=== PATIENT | male | born 1955 | race American Indian/Alaskan Native ===

== ENCOUNTER 2017-10-18 01:19 | Emergency (ER) | payer OTHER ==
[2017-10-18] MEDS ORDERED: TYLENOL PO ONE (03:08)
--- NOTE | 2017-10-18 07:46 | Emergency Department Report ---
ED Lower Extremity HPI - General Chief Complaint: Extremity Injury, Lower Stated Complaint: LT LEG PAIN Time Seen by Provider: 10/18/17 07:30 Source: patient Mode of arrival: Ambulatory Limitations: No Limitations - History of Present Illness Initial Comments: Patient 8-year-old male who presents to emergency room with left lower extremity pain and swelling. Patient states he had a ulcer on his left anterior leg for about a week but just started hurting about 3 days ago patient states the pain as a 10 out of 10 and severe. Patient describes the pain as a sharp pain patient states the pain is worse in a movement. Patient states the pain is better with rest. Patient denies chest pain shortness of breath. Patient denies fever and chills. Patient does complain of the left lower externa being warm to touch. -: Sudden Severity: severe Severity scale (0 -10): 10 Improves With: rest Worsens With: movement, palpation Associated Symptoms: swelling, able to partially bear weight Treatments Prior to Arrival: cold therapy, NSAIDS - Related Data Previous Rx's Medication Instructions Recorded Last Taken Type Doxycycline Hyclate [Doxycycline 100 mg PO Q12HR 10 Days #20 tab 10/18/17 Unknown Rx Hyclate TAB] HYDROcodone/ACETAMINOPHEN [[place] 1 each PO Q6HR PRN #15 tablet 10/18/17 Unknown Rx 7.5-325 Tablet] Allergies Allergy/AdvReac Type Severity Reaction Status Date / Time No Known Allergies Allergy Unverified 10/18/17 01:33 ED Review of Systems ROS: Stated complaint: LT LEG PAIN Other details as noted in HPI Comment: All other systems reviewed and negative Constitutional: denies: chills, fever Eyes: denies: eye pain, eye discharge, vision change ENT: denies: ear pain, throat pain Respiratory: denies: cough, shortness of breath, wheezing Cardiovascular: denies: chest pain, palpitations Endocrine: no symptoms reported Gastrointestinal: denies: abdominal pain, nausea, diarrhea Genitourinary: denies: urgency, dysuria Musculoskeletal: denies: back pain, joint swelling, arthralgia Skin: denies: rash, lesions Neurological: denies: headache, weakness, paresthesias Psychiatric: denies: anxiety, depression Hematological/Lymphatic: denies: easy bleeding, easy bruising ED Past Medical Hx - Past Medical History Previous Medical History?: Yes Hx Hypertension: Yes Hx Heart Attack/AMI: Yes Additional medical history: a fib, - Surgical History Past Surgical History?: Yes Additional Surgical History: hernia - Social History Smoking Status: Never Smoker Substance Use Type: None - Medications Home Medications: Home Medications Medication Instructions Recorded Confirmed Last Taken Type Doxycycline Hyclate [Doxycycline 100 mg PO Q12HR 10 Days #20 tab 10/18/17 Unknown Rx Hyclate TAB] HYDROcodone/ACETAMINOPHEN [[place] 1 each PO Q6HR PRN #15 tablet 10/18/17 Unknown Rx 7.5-325 Tablet] ED Physical Exam - General Limitations: No Limitations General appearance: alert, in no apparent distress - Head Head exam: Present: atraumatic, normocephalic - Eye Eye exam: Present: normal appearance - ENT ENT exam: Present: mucous membranes moist - Neck Neck exam: Present: normal inspection - Respiratory Respiratory exam: Present: normal lung sounds bilaterally. Absent: respiratory distress - Cardiovascular Cardiovascular Exam: Present: regular rate, normal rhythm. Absent: systolic murmur, diastolic murmur, rubs, gallop - GI/Abdominal GI/Abdominal exam: Present: soft, normal bowel sounds - Rectal Rectal exam: Present: deferred - Extremities Exam Extremities exam: Present: tenderness (left lower extremity tenderness and calf tenderness noted \), calf tenderness (left ), other (left lower extremity swelling) - Back Exam Back exam: Present: normal inspection - Neurological Exam Neurological exam: Present: alert, oriented X3 - Psychiatric Psychiatric exam: Present: normal affect, normal mood - Skin Skin exam: Present: warm, dry, intact, normal color. Absent: rash ED Course Vital Signs 10/18/17 10/18/17 10/18/17 01:28 03:41 03:43 Temperature 98.4 F Pulse Rate 115 H Respiratory 17 18 18 Rate Blood Pressure 192/148 Blood Pressure [Left] O2 Sat by Pulse 98 99 Oximetry 10/18/17 10/18/17 10/18/17 04:41 05:45 08:00 Temperature 98.9 F Pulse Rate 78 88 Respiratory 18 18 18 Rate Blood Pressure Blood Pressure 176/88 178/102 [Left] O2 Sat by Pulse 99 99 Oximetry 10/18/17 10/18/17 10/18/17 08:10 08:15 11:10 Temperature Pulse Rate Respiratory 18 18 18 Rate Blood Pressure Blood Pressure [Left] O2 Sat by Pulse 98 Oximetry 10/18/17 12:30 Temperature 98.8 F Pulse Rate 86 Respiratory 18 Rate Blood Pressure Blood Pressure 164/94 [Left] O2 Sat by Pulse 98 Oximetry - Reevaluation(s) Reevaluation #1: discussed results with patient. Patient agreeable with plan of care. Patient to be discharged home with discharge instructions. Patient take prescription as directed. 10/18/17 11:54 Reevaluation #2: ZARINA GODDARD Male : 1955 MedRec# [id number] 10/18/17 09:54 - Radiology Dept. Note by SULTANA SANCHEZ Acct Num: [id number] : 1955 Patient Age: 62 VASCULAR LAB.PRELIMINARY REPORT. LLE VENOUS DUPLEX DONE BEDSIDE. NO EVIDENCE OF DVT/SVT IN VESSELS VISUALIZED. Initialized on 10/18/17 09:54 - END OF NOTE ED Lower Extremity MDM - Lab Data Result diagrams: 10/18/17 07:51 10/18/17 07:51 - Radiology Data Radiology results: report reviewed - Medical Decision Making This 62-year-old male presents to emergency room with left lower extremity pain and swelling. Based upon the have left venous ulcer and cellulitis. Patient was treated with oral antibiotics and pain meds. Patient was given his first dose of oral antibiotics here. - Differential Diagnosis cellulitis. Venous stasis. Venous ulcer. Critical care attestation.: If time is entered above; I have spent that time in minutes in the direct care of this critically ill patient, excluding procedure time. ED Disposition Clinical Impression: Swelling of left lower extremity, Venous stasis, Venous ulcer of left leg Lower extremity pain Qualifiers: Laterality: left Qualified Code(s): M79.605 - Pain in left leg Cellulitis Qualifiers: Site of cellulitis: extremity Disposition: DC-01 TO HOME OR SELFCARE Is pt being admited?: No Does the pt Need Aspirin: No Condition: Stable Instructions: Cellulitis (ED), Acute Wound Care (ED), Stasis Dermatitis (ED) Additional Instructions: Patient to follow up with primary care in 3-5 days. Patient to follow up with vascular surgeon for further management in 3-5 days. Patient to return to ER if condition worsens. Patient to rest and elevate extremity. Patient increase water. Patient take Tylenol or ibuprofen when necessary for pain Prescriptions: Doxycycline Hyclate [Doxycycline Hyclate TAB] 100 mg PO Q12HR 10 Days #20 tab HYDROcodone/ACETAMINOPHEN [[place] 7.5-325 Tablet] 1 each PO Q6HR PRN #15 tablet PRN Reason: Pain , Severe (7-10) Referrals: PRIMARY CARE, [Primary Care Provider] - 3-5 Days Time of Disposition: 11:54
[2017-10-18 08:03] LABS: Basophils # (Auto) 0.1 K/mm3 (0.0-0.1); Basophils % (Auto) 1.1 % (0.0-1.8); Eosinophils # (Auto) 0.2 K/mm3 (0.0-0.4); Eosinophils % (Auto) 2.1 % (0.0-4.3); Hematocrit 42.1 % (35.5-45.6); Hemoglobin 14.3 gm/dl (11.8-15.2); Lymphocytes # (Auto) 1.8 K/mm3 (1.2-5.4); Mean Corpuscular HGB Conc 34 % (32-34); Mean Corpuscular Hemoglobin 31 pg (28-32); Mean Corpuscular Volume 92 fl (84-94); Monocytes # (Auto) 0.6 K/mm3 (0.0-0.8); Monocytes % (Auto) 8.1 % (0.0-7.3); Platelet Count 209 K/mm3 (140-440); Red Blood Count 4.56 M/mm3 (3.65-5.03); Red Cell Distribution Width 13.5 % (13.2-15.2)
[2017-10-18] MEDS ORDERED: DILAUDID ONE ×2 (08:07→11:10)
[2017-10-18 08:37] LABS: BUN/Creatinine Ratio 17; Blood Urea Nitrogen 12 mg/dL (9-20); Calcium 8.8 mg/dL (8.4-10.2); Hemolysis Index 55
[2017-10-18] MEDS ORDERED: VIBRAMYCIN PO ONE (12:03)
[2017-10-18] MEDS ORDERED: DILAUDID IV ONE ×2 (12:04→12:06)
[2017-10-18 16:07] VITALS: BP 164/94
== END 2017-10-18 12:30 | disposition home or self-care (01) ==
LOC: ED 01:19
DX: M79.605 Pain in left leg (principal); L03.116 Cellulitis of left lower limb; I87.8 Other specified disorders of veins; L97.829 Non-pressure chronic ulcer of other part of left lower leg with unspecified severity; I10 Essential (primary) hypertension; I25.2 Old myocardial infarction
CPT/HCPCS: 36415; 80048; 85025; 93971; 96374; 96376; 99283; J1170

== ENCOUNTER 2020-04-07 07:18 | Inpatient (IN) | payer OTHER, SELFPAY ==
[2020-04-07] MEDS ORDERED: ASPIRIN 325 MG TAB PO ONE (07:40)
--- NOTE | 2020-04-07 08:21 | XRay Report ---
CHEST 1 VIEW INDICATION / CLINICAL INFORMATION: Chest Pain. COMPARISON: None available. FINDINGS: SUPPORT DEVICES: None. HEART / MEDIASTINUM: Cardiomegaly LUNGS / PLEURA: Mild interstitial prominence which could be chronic No pneumothorax. ADDITIONAL FINDINGS: No significant additional findings. IMPRESSION: Cardiomegaly with mild interstitial prominence which may be chronic Signer Name: Jameel Whitt MD FACR Signed: 04/07/2020 8:16 AM Workstation Name: Your Office [id number]
[2020-04-07 08:25] LABS: Basophils # (Auto) 0.1 K/mm3 (0.0-0.1); Basophils % (Auto) 0.8 % (0.0-1.8); Eosinophils # (Auto) 0.3 K/mm3 (0.0-0.4); Eosinophils % (Auto) 3.4 % (0.0-4.3); Hematocrit 31.9 % (35.5-45.6); Hemoglobin 10.4 gm/dl (11.8-15.2); Lymphocytes # (Auto) 1.9 K/mm3 (1.2-5.4); Lymphocytes % (Auto) 20.5 % (13.4-35.0); Mean Corpuscular HGB Conc 33 % (32-34); Mean Corpuscular Volume 91 fl (84-94); Monocytes # (Auto) 0.7 K/mm3 (0.0-0.8); Monocytes % (Auto) 7.7 % (0.0-7.3); Platelet Count 338 K/mm3 (140-440); Red Blood Count 3.52 M/mm3 (3.65-5.03); Red Cell Distribution Width 15.2 % (13.2-15.2)
[2020-04-07 08:52] LABS: BUN/Creatinine Ratio 15; Blood Urea Nitrogen 17 mg/dL (9-20); Calcium 8.7 mg/dL (8.4-10.2); Hemolysis Index 2
--- NOTE | 2020-04-07 09:16 | Emergency Department Report ---
ED Shortness of Breath HPI - General Chief Complaint: Dyspnea/Respdistress Stated Complaint: LUAN Time Seen by Provider: 04/07/20 09:12 Source: patient Mode of arrival: Wheelchair Limitations: No Limitations - History of Present Illness Initial Comments: 64-year-old male with history of hypertension, CHF, A. fib, peripheral vascular disease, presents to the ED with complaint of dyspnea on exertion and right leg wound. Patient reports a chronic left leg wound for which he underwent debridement in May 2019. States he had wound care initially, now he does dressing changes himself. Patient states current symptoms have been ongoing for approximately 2 weeks, but became worse today. Patient states he has been off of all of his medications for several months due to loss of his insurance. MD Complaint: shortness of breath -: week(s) (2) Severity: moderate Consistency: intermittent Improves With: rest Worsens With: exertion Known History Of: congestive heart failure Treatments Prior to Arrival: none - Related Data Home Oxygen Therapy: No Home Medications Medication Instructions Recorded Confirmed Last Taken Furosemide [Lasix TAB] 40 mg PO QDAY 04/07/20 04/07/20 Unknown Gabapentin [Neurontin] 300 mg PO Q8HR 04/07/20 04/07/20 Unknown Lisinopril [Zestril TAB] 40 mg PO QDAY 04/07/20 04/07/20 Unknown Metoprolol Tartrate [Lopressor] 50 mg PO BID 04/07/20 04/07/20 Unknown NIFEdipine [Procardia Xl] 60 mg PO QDAY 04/07/20 04/07/20 Unknown Allergies Allergy/AdvReac Type Severity Reaction Status Date / Time No Known Allergies Allergy Unverified 10/18/17 01:33 ED Review of Systems ROS: Stated complaint: LUAN Other details as noted in HPI Comment: All other systems reviewed and negative Constitutional: denies: fever Respiratory: SOB with exertion. denies: cough Cardiovascular: denies: chest pain Musculoskeletal: other (Reports wound and swelling) ED Past Medical Hx - Past Medical History Previous Medical History?: Yes Hx Hypertension: Yes Hx Heart Attack/AMI: Yes Additional medical history: A fib - Surgical History Past Surgical History?: Yes Additional Surgical History: Hernia repair - Social History Smoking Status: Never Smoker Substance Use Type: None - Medications Home Medications: Home Medications Medication Instructions Recorded Confirmed Last Taken Type Furosemide [Lasix TAB] 40 mg PO QDAY 04/07/20 04/07/20 Unknown History Gabapentin [Neurontin] 300 mg PO Q8HR 04/07/20 04/07/20 Unknown History Lisinopril [Zestril TAB] 40 mg PO QDAY 04/07/20 04/07/20 Unknown History Metoprolol Tartrate [Lopressor] 50 mg PO BID 04/07/20 04/07/20 Unknown History NIFEdipine [Procardia Xl] 60 mg PO QDAY 04/07/20 04/07/20 Unknown History ED Physical Exam - General Limitations: No Limitations General appearance: alert, in no apparent distress - Head Head exam: Present: atraumatic, normocephalic - Eye Eye exam: Present: normal appearance - ENT ENT exam: Present: mucous membranes moist - Neck Neck exam: Present: normal inspection - Respiratory Respiratory exam: Present: normal lung sounds bilaterally. Absent: respiratory distress - Cardiovascular Cardiovascular Exam: Present: normal rhythm, tachycardia - GI/Abdominal GI/Abdominal exam: Present: soft. Absent: distended, tenderness - Extremities Exam Extremities exam: Present: other (Moderate-sized wound on medial aspect of right ankle that has pinkish base, no purulent discharge; moderate sized wound on posterior aspect of right leg with purulent discharge, necrotic base, foul smell; ) - Neurological Exam Neurological exam: Present: alert, oriented X3 - Psychiatric Psychiatric exam: Present: normal affect, normal mood - Skin Skin exam: Present: warm, dry, intact, normal color ED Course Vital Signs 04/07/20 04/07/20 04/07/20 07:21 09:15 09:20 Temperature 98.5 F 98.3 F Pulse Rate 128 H 126 H Respiratory 28 H 8 L 15 Rate Blood Pressure Blood Pressure 218/135 172/132 [Left] O2 Sat by Pulse 96 99 Oximetry 04/07/20 04/07/20 04/07/20 09:31 09:45 10:01 Temperature Pulse Rate 92 H 101 H 99 H Respiratory 15 20 21 Rate Blood Pressure 172/132 172/132 172/132 Blood Pressure [Left] O2 Sat by Pulse 99 98 98 Oximetry 04/07/20 04/07/20 04/07/20 10:15 10:30 10:45 Temperature Pulse Rate 62 62 109 H Respiratory 19 17 16 Rate Blood Pressure 154/92 148/101 148/101 Blood Pressure [Left] O2 Sat by Pulse 99 96 97 Oximetry 04/07/20 04/07/20 04/07/20 11:00 11:31 12:01 Temperature Pulse Rate 82 70 108 H Respiratory 15 14 24 Rate Blood Pressure 132/78 136/77 152/100 Blood Pressure [Left] O2 Sat by Pulse 98 99 97 Oximetry 04/07/20 04/07/20 12:31 13:14 Temperature Pulse Rate 128 H 96 H Respiratory 25 H Rate Blood Pressure 152/100 146/84 Blood Pressure [Left] O2 Sat by Pulse Oximetry ED Medical Decision Making - Lab Data Result diagrams: 04/07/20 07:41 04/07/20 07:41 - EKG Data -: EKG Interpreted by Me EKG shows normal: QRS complexes, ST-T waves Rate: tachycardia (rate 119) - EKG Data Interpretation: no acute changes, other (atrial flutter) - Radiology Data Radiology results: report reviewed, image reviewed - Medical Decision Making 64-year-old male, noncompliant with medications for at least 4 months, presents to ED with shortness of breath and an new open wound to right lower leg. Patient found to be in a flutter with RVR, and hypertensive. Cardizem given with appropriate response. Heart rate improved to the 60s. Blood pressure also improved. Labs are normal. No elevation of WBCs. Patient is afebrile. However, wound to posterior right lower leg does appear to be infected. Antibiotics given. Patient will be admitted to hospitalist for further management. - Differential Diagnosis ACS, A. fib/a flutter, pulmonary edema, sepsis Critical Care Time: Yes Critical care time in (mins) excluding proc time.: 35 Critical care attestation.: If time is entered above; I have spent that time in minutes in the direct care of this critically ill patient, excluding procedure time. Critical Care Time: 35 min ED Disposition Clinical Impression: Open wound, lower leg, Infected wound, Atrial flutter with rapid ventricular response, Hypertensive emergency Disposition: 09 OP ADMIT IP TO THIS HOSP Is pt being admited?: Yes Condition: Stable
[2020-04-07] MEDS ORDERED: dilTIAZem 25 MG/5 ML INJ IV ONE (09:25)
[2020-04-07] MEDS ORDERED: PIPERACIL/TAZOBACTA 4.5/NS 100 4.5 GM/100 ML VIAL IV ONE (09:30)
[2020-04-07] MEDS ORDERED: MORPHINE 2 MG/1 ML INJ ONE (09:46)
[2020-04-07] MEDS ORDERED: VANCOMYCIN 2,000 MG in SODIUM CHLORIDE 0.9% 500 ML 500 ML IV ONE (10:00)
[2020-04-07] MEDS ORDERED: MORPHINE 4 MG/1 ML INJ IV ONE ×2 (10:09→23:20)
[2020-04-07] MEDS ORDERED: ASPIRIN 325 MG TAB ONE (10:50)
--- NOTE | 2020-04-07 12:14 | History and Physical Report ---
History of Present Illness Date of examination: 04/07/20 Date of admission: 04/07/20 10:09 Chief complaint: Worsening shortness of breath History of present illness: 64-year-old male patient with significant past medical history of hypertension, CHF, A. fib, peripheral vascular disease, noncompliant with medications due to social reasons, presented to the emergency room with worsening shortness of breath and worsening leg edema and reduced effort tolerance and shortness of breath on exertion. Patient is gives history of and May 2019, and patient reports that he does his own dressing at home as needed In the ER patient is noted to have atrial flutter with rapid ventricular rate, slightly improved with metoprolol. Patient has not taken medications for many months. Past History Past Medical History: atrial fib, CAD, heart failure, hypertension Past Surgical History: hernia repair Social history: denies: smoking, alcohol abuse, prescription drug abuse Family history: no significant family history Medications and Allergies Allergies Allergy/AdvReac Type Severity Reaction Status Date / Time No Known Allergies Allergy Unverified 10/18/17 01:33 Home Medications Medication Instructions Recorded Confirmed Last Taken Type Furosemide [Lasix TAB] 40 mg PO QDAY 04/07/20 04/07/20 Unknown History Gabapentin [Neurontin] 300 mg PO Q8HR 04/07/20 04/07/20 Unknown History Lisinopril [Zestril TAB] 40 mg PO QDAY 04/07/20 04/07/20 Unknown History Metoprolol Tartrate [Lopressor] 50 mg PO BID 04/07/20 04/07/20 Unknown History NIFEdipine [Procardia Xl] 60 mg PO QDAY 04/07/20 04/07/20 Unknown History Review of Systems Constitutional: weakness, no weight loss, no weight gain, no fever, no chills Ears, nose, mouth and throat: no nasal congestion, no nasal discharge Cardiovascular: orthopnea, palpitations, shortness of breath, leg edema, no ch est pain Respiratory: shortness of breath, no cough Gastrointestinal: no abdominal pain, no nausea, no vomiting Genitourinary Male: no dysuria, no hematuria Integumentary: wounds, no rash Neurological: no seizures, no syncope Psychiatric: no anxiety, no depression Endocrine: no cold intolerance, no heat intolerance, no polydipsia, no polyuria Hematologic/Lymphatic: no easy bruising, no easy bleeding Allergic/Immunologic: no urticaria, no allergic rhinitis Exam - Constitutional Vitals: Temp Pulse Resp BP Pulse Ox 98.3 F 82 15 132/78 98 04/07/20 09:20 04/07/20 11:00 04/07/20 11:00 04/07/20 11:00 04/07/20 11:00 General appearance: Present: mild distress, well-nourished, obese (Morbidly obese) - Neck Neck: Present: supple, normal ROM - Respiratory Respiratory effort: normal Respiratory: bilateral: diminished, negative: rales, rhonchi, wheezing - Cardiovascular Rhythm: irregularly irregular Heart Sounds: Present: S1 & S2 - Extremities Extremities: no ischemia Extremity abnormal: edema - Abdominal General gastrointestinal: Present: soft, non-tender, non-distended, normal bowel sounds - Integumentary Integumentary: Present: clear, warm - Musculoskeletal Musculoskeletal: strength equal bilaterally - Psychiatric Psychiatric: appropriate mood/affect, cooperative - Neurologic Neurologic: moves all extremities HEART Score - HEART Score Troponin: Troponin T < 0.010 ng/mL (0.00-0.029) 04/07/20 10:40 Results - Labs CBC & Chem 7: 04/07/20 07:41 04/07/20 07:41 Labs: Abnormal lab results 04/07/20 04/07/20 Range/Units 07:41 07:41 RBC 3.52 L (3.65-5.03) M/mm3 Hgb 10.4 L (11.8-15.2) gm/dl Hct 31.9 L (35.5-45.6) % [place] % (Auto) 7.7 H (0.0-7.3) % Glucose 152 H (75-100) mg/dL Assessment and Plan --Hypertensive urgency; POA Antihypertensives, PRN labetalol Closely monitor blood pressures --Atrial flutter with rapid ventricular rate Patient noncompliant with medications Today patient is in atrial flutter Beta-blockers, echocardiogram Start chronic anticoagulation with Eliquis Cardiology consult --Acute congestive heart failure; unknown ejection fraction IV diuretics, echocardiogram for LV function ejection fraction Low-sodium diet, fluid restriction --Chronic lower extremity wound; Clindamycin, wound care vascular/surgery evaluation if needed --History of peripheral vascular disease; Aspirin, will add statin --Obesity; BMI 38.3 Patient needs weight reduction when medically stable --Noncompliance; Counseling done patient strongly advised to comply with medications diet follow-up visits, Verbalized understanding --DVT prophylaxis; Lovenox --Full CODE STATUS We will closely monitor patient and adjust the management as needed Plan of care reviewed with the patient, his nurse I also discussed with nurse practitioner cardiology
[2020-04-07] MEDS ORDERED: ACETAMINOPHEN 325 MG TAB PO PRN (12:30)
[2020-04-07] MEDS ORDERED: METOPROLOL TARTRATE 50 MG TAB PO ONE (12:46)
[2020-04-07] MEDS ORDERED: METOPROLOL TARTRATE 50 MG TAB ONE (13:12)
[2020-04-07] MEDS ORDERED: METOPROLOL TARTRATE 5 MG/5 ML INJ IV PRN (13:46)
--- NOTE | 2020-04-07 15:06 | Consultation ---
History of Present Illness Consult date: 04/07/20 Requesting physician: TIO HAIRSTON Consult reason: atrial fibrillation History of present illness: The pt is a 64-year-old male with a past medical history of hypertension, ? atrial fibrillation, PVD, obesity. He is previously unknown to our practice and does not regularly see a floor technician. Pt presented with c/o progressively worsening SOB, LIMA, BLE swelling, orthopnea and palpitations for the past several weeks and BLE wounds. Patient reports a chronic BLE wounds and is s/p debridement of LLE wound in May 2019. States he had wound care initially, now he does dressing changes himself. He has been experiencing worsening BLE pain associated with his wounds. Pt reports a history of "irregular heart rhythm" which was diagnosed approx 2 years ago at OSH. He states he was discharged home on lopressor and baby ASA and never followed up with floor technician. Patient states he has been off of all of his medications for several months due to loss of his insurance. Admission ECG shows atrial flutter with RVR. On evaluation, pt remains in AFlutter RVR HR 120s. Past History Past Medical History: atrial fib, CAD, hypertension, other (as per HPI) Past Surgical History: hernia repair Social history: denies: smoking, alcohol abuse, prescription drug abuse Family history: no significant family history Medications and Allergies Allergies Allergy/AdvReac Type Severity Reaction Status Date / Time No Known Allergies Allergy Unverified 10/18/17 01:33 Home Medications Medication Instructions Recorded Confirmed Last Taken Type Furosemide [Lasix TAB] 40 mg PO QDAY 04/07/20 04/07/20 Unknown History Gabapentin [Neurontin] 300 mg PO Q8HR 04/07/20 04/07/20 Unknown History Lisinopril [Zestril TAB] 40 mg PO QDAY 04/07/20 04/07/20 Unknown History Metoprolol Tartrate [Lopressor] 50 mg PO BID 04/07/20 04/07/20 Unknown History NIFEdipine [Procardia Xl] 60 mg PO QDAY 04/07/20 04/07/20 Unknown History Active Meds: Active Medications Acetaminophen (Tylenol) 650 mg PO Q6H PRN PRN Reason: Pain, Mild (1-3) Apixaban (Eliquis) 5 mg PO Q12HR [facility]ALIA; Protocol Aspirin (Aspirin) 325 mg PO QDAY [facility] Atorvastatin Calcium (Lipitor) 40 mg PO QHS [facility] Clindamycin HCl (Cleocin) 300 mg PO QID [facility] Furosemide (Lasix) 40 mg PO DAILY@0600 [facility] Gabapentin (Gabapentin) 300 mg PO Q8HR [facility] Labetalol HCl (Labetalol) 10 mg IV Q4H PRN PRN Reason: Hypertension Metoprolol Tartrate (Metoprolol) 50 mg PO BID [facility] Metoprolol Tartrate (Metoprolol) 5 mg IV PRN PRN PRN Reason: Tachyarrhythmias Oxycodone/Acetaminophen (Percocet 5/325) 1 tab PO Q6H PRN PRN Reason: Pain, Moderate (4-6) Pantoprazole Sodium (Protonix) 40 mg IV QDAY [facility] Pneumococcal Polyvalent Vaccine (Pneumovax 23) 0.5 ml IM .ONCE ONE Stop: 04/07/20 16:51 Review of Systems Constitutional: no fever, no chills, no sweats Ears, nose, mouth and throat: no ear pain, no nose pain, no sinus pressure, no sinus pain Cardiovascular: orthopnea, palpitations, rapid/irregular heart beat, edema, shortness of breath, dyspnea on exertion, paroxysmal nocturnal dyspnea, high blood pressure, leg edema, no chest pain, no syncope, no lightheadedness Respiratory: shortness of breath, dyspnea on exertion, no cough, no congestion, no wheezing, no pain on inspiration Gastrointestinal: no abdominal pain, no nausea, no vomiting, no diarrhea, no constipation, no change in bowel habits Genitourinary Male: no dysuria, no hematuria Musculoskeletal: no neck stiffness, no neck pain, no shooting arm pain, no arm numbness/tingling, no low back pain, no shooting leg pain Integumentary: no rash, no pruritis, no redness, no sores, no wounds Neurological: no head injury, no paralysis, no weakness, no parathesias, no numbness, no tingling, no seizures, no syncope Psychiatric: no anxiety Endocrine: no cold intolerance, no heat intolerance Hematologic/Lymphatic: no easy bruising, no easy bleeding Allergic/Immunologic: no urticaria Physical Examination Vital Signs Temp Pulse Resp BP Pulse Ox 98.5 F 128 H 28 H 218/135 96 04/07/20 07:21 04/07/20 07:21 04/07/20 07:21 04/07/20 07:21 04/07/20 07:21 General appearance: no acute distress HEENT: Positive: PERRL, Normocephaly, Mucus Membranes Moist Neck: Positive: neck supple, trachea midline Cardiac: Positive: irregularly irregular, S1/S2, Tachycardia Lungs: Positive: Decreased Breath Sounds Neuro: Positive: Grossly Intact Abdomen: Negative: Tender Skin: Positive: Other (BLE wounds covered in dressings). Negative: Rash Musculoskeletal: other (BLE wounds) Extremities: Present: +2 Edema (BLE) Results 04/07/20 07:41 04/07/20 07:41 CBC 04/07/20 Range/Units 07:41 WBC 9.3 (4.5-11.0) K/mm3 RBC 3.52 L (3.65-5.03) M/mm3 Hgb 10.4 L (11.8-15.2) gm/dl Hct 31.9 L (35.5-45.6) % Plt Count 338 (140-440) K/mm3 Lymph # (Auto) 1.9 (1.2-5.4) K/mm3 Darke # (Auto) 0.7 (0.0-0.8) K/mm3 Eos # (Auto) 0.3 (0.0-0.4) K/mm3 Baso # (Auto) 0.1 (0.0-0.1) K/mm3 Comprehensive Metabolic Panel 04/07/20 Range/Units 07:41 Sodium 141 (137-145) mmol/L Potassium 4.1 (3.6-5.0) mmol/L Chloride 103.1 (98-107) mmol/L Carbon Dioxide 28 (22-30) mmol/L BUN 17 (9-20) mg/dL Creatinine 1.1 (0.8-1.3) mg/dL Glucose 152 H (75-100) mg/dL Calcium 8.7 (8.4-10.2) mg/dL - Imaging and Cardiology Echo: pending EKG: report reviewed, image reviewed EKG interpretations - Telemetry EKG Rhythm: Atrial Fibrillation - EKG Supraventricular dysrhythmia: atrial flutter Assessment and Plan Pt remains in AFlutter RVR on evaluation. Cont lopressor and titrate as tolerated. Add IV amiodarone in attempt to chemically convert to NSR. If unable to chemically convert, pt may require MICHAEL guided DCCV (tentatively plan for 04/09/2020). Agree with Veronica. Initiate IV lasix BID. F/u BMP in AM. Obtain tte. Further recs to follow per hospital course. The patient has been seen in conjunction with Dr. Maite Escobar who agrees with the assessment and plan of care. - Patient Problems (1) Acute heart failure Current Visit: Yes Status: Acute (2) Atrial flutter with rapid ventricular response Current Visit: Yes Status: Acute (3) Uncontrolled hypertension Current Visit: Yes Status: Chronic (4) PVD (peripheral vascular disease) Current Visit: Yes Status: Chronic (5) Wound of lower extremity Current Visit: Yes Status: Acute (6) History of atrial fibrillation Current Visit: Yes Status: Chronic Plan to address problem: 2 years ago per pt report (7) Obesity Current Visit: Yes Status: Chronic (8) Anemia Current Visit: Yes Status: Acute (9) Medical non-compliance Current Visit: Yes Status: Chronic
[2020-04-07] MEDS: oxyCODONE /ACETAMINOPHEN 5-325MG TAB PO PRN ×2 (15:12→21:38)
[2020-04-07] MEDS: GABAPENTIN 300 MG CAP PO SCH ×2 (15:12→21:27)
[2020-04-07] MEDS: CLINDAMYCIN 300 MG CAP PO SCH ×3 (15:13→21:27)
[2020-04-07] MEDS ORDERED: AMIODARONE 150 MG in DEXTROSE 5% IN WATER 97 ML IV ONE (16:00)
[2020-04-07] MEDS ORDERED: AMIODARONE 900 MG in DEXTROSE 5% IN WATER 482 ML IV SCH ×2 (16:30→19:30)
[2020-04-07] MEDS ORDERED: PNEUMOCOCCAL 23 Valent 0.5 ML VIAL IM ONE (16:50)
[2020-04-07] MEDS: FUROSEMIDE 40 MG/4 ML INJ IV SCH (18:05)
[2020-04-07] MEDS: METOPROLOL TARTRATE 50 MG TAB PO SCH (21:27)
[2020-04-07] MEDS: APIXABAN 5 MG TAB PO SCH (21:27)
[2020-04-07] MEDS ORDERED: METOPROLOL TARTRATE 25 MG TAB PO SCH (22:00)
[2020-04-07] MEDS ORDERED: ENOXAPARIN 40 MG/0.4 ML INJ SUB-Q SCH (22:00)
[2020-04-08] MEDS: GABAPENTIN 300 MG CAP PO SCH ×3 (05:15→21:48)
[2020-04-08] MEDS: FUROSEMIDE 40 MG/4 ML INJ IV SCH ×2 (05:15→18:15)
[2020-04-08] MEDS: oxyCODONE /ACETAMINOPHEN 5-325MG TAB PO PRN ×2 (05:15→11:53)
[2020-04-08] MEDS ORDERED: FUROSEMIDE 40 MG TAB PO SCH (06:00)
[2020-04-08 09:27] LABS: BUN/Creatinine Ratio 22; Blood Urea Nitrogen 22 mg/dL (9-20); Calcium 8.8 mg/dL (8.4-10.2); Hemolysis Index 0
[2020-04-08] MEDS: PANTOPRAZOLE 40 MG TAB PO SCH (09:35)
[2020-04-08] MEDS ORDERED: NIFEdipine XL 60 MG TAB PO SCH (10:00)
[2020-04-08] MEDS ORDERED: ASPIRIN 325 MG TAB PO SCH (10:00)
--- NOTE | 2020-04-08 10:46 | Progress Note ---
Assessment and Plan Pt in AFlutter with HR 90s overnight, feeling better today. Initiate PO amio and d/c amio gtt following 2nd PO dose. Cont PO lopressor and titrate as tolerated. Cont Eliquis. Cont IV lasix. No plans or MICHAEL guided DCCV pending we are able to optimize HR chemically. Await echo. The patient has been seen in conjunction with Dr. Maite Escobar who agrees with the assessment and plan of care. - Patient Problems (1) Acute heart failure Current Visit: Yes Status: Acute (2) Atrial flutter with rapid ventricular response Current Visit: Yes Status: Acute (3) Uncontrolled hypertension Current Visit: Yes Status: Chronic (4) PVD (peripheral vascular disease) Current Visit: Yes Status: Chronic (5) Wound of lower extremity Current Visit: Yes Status: Acute (6) History of atrial fibrillation Current Visit: Yes Status: Chronic (7) Obesity Current Visit: Yes Status: Chronic (8) Anemia Current Visit: Yes Status: Acute (9) Medical non-compliance Current Visit: Yes Status: Chronic Subjective Date of service: 04/08/20 Principal diagnosis: AFlutter RVR; HF Interval history: pt resting in bed, states he is feeling a little better today, BLE wound pain is his primary complaint. tele reviewed - in AFlutter with HR 90s. amio gtt infusing. Objective Last Vital Signs Temp 97.9 F 04/08/20 03:35 Pulse 101 H 04/08/20 09:35 Resp 20 04/08/20 03:35 BP 183/129 04/08/20 09:35 Pulse Ox 94 04/08/20 03:35 - Physical Examination General: No Apparent Distress HEENT: Positive: PERRL, Normocephaly, Mucus Membranes Moist Neck: Positive: neck supple, trachea midline Cardiac: Positive: irregularly irregular, S1/S2 Lungs: Positive: Decreased Breath Sounds Neuro: Positive: Grossly Intact Abdomen: Negative: Tender Skin: Positive: Other (BLE wounds covered in dressings). Negative: Rash Musculoskeletal: other (BLE wounds) Extremities: Present: +2 Edema (BLE) - Labs and Meds Comprehensive Metabolic Panel 04/08/20 Range/Units 06:50 Sodium 139 (137-145) mmol/L Potassium 3.9 (3.6-5.0) mmol/L Chloride 102.1 (98-107) mmol/L Carbon Dioxide 28 (22-30) mmol/L BUN 22 H (9-20) mg/dL Creatinine 1.0 (0.8-1.3) mg/dL Glucose 162 H (75-100) mg/dL Calcium 8.8 (8.4-10.2) mg/dL - Imaging and Cardiology EKG: report reviewed, image reviewed Echo: pending - Telemetry EKG Rhythm: Atrial Flutter
[2020-04-08] MEDS: APIXABAN 5 MG TAB PO SCH ×2 (11:05→21:48)
[2020-04-08] MEDS: CLINDAMYCIN 300 MG CAP PO SCH ×2 (11:05→13:36)
[2020-04-08] MEDS: ASPIRIN 81 MG TAB CHEW PO SCH (11:06)
[2020-04-08] MEDS: METOPROLOL TARTRATE 50 MG TAB PO SCH ×3 (11:35→21:48)
[2020-04-08] MEDS: AMIODARONE 200 MG TAB PO SCH ×2 (11:54→21:48)
[2020-04-08] MEDS ORDERED: MORPHINE 2 MG/1 ML INJ IV PRN (12:09)
[2020-04-08] MEDS: MORPHINE 2 MG/1 ML INJ IV PRN ×2 (13:37→20:14)
--- NOTE | 2020-04-08 16:17 | Progress Note ---
Assessment and Plan Assessment and plan: --Hypertensive urgency; POA Well-controlled , continue current antihypertensives, PRN labetalol, advised compliance with medications Closely monitor blood pressures --Atrial flutter with rapid ventricular rate POA Cardiology initially recommended MICHAEL cardioversion However today patient's heart rate is controlled No indication for cardioversion Amiodarone, Metoprolol and Eliquis --Acute congestive heart failure; unknown ejection fraction IV diuretics, echocardiogram for LV function ejection fraction Low-sodium diet, fluid restriction --Chronic lower extremity wound; Clindamycin, wound care consult Possible surgical debridement Wound care surgeon consult --History of peripheral vascular disease; Aspirin, will add statin --Obesity; BMI 38.3 Patient needs weight reduction when medically stable --Noncompliance; Counseling done patient strongly advised to comply with medications diet follow-up visits, Verbalized understanding --DVT prophylaxis; Lovenox --Full CODE STATUS We will closely monitor patient and adjust the management as needed Plan of care reviewed with the patient, his nurse Cardiology recommendations noted and appreciated. Brief history[ Morbidly obese 62-year-old male patient was admitted through emergency room with atrial flutter with rapid ventricular rate cardiology evaluated Started on amiodarone drip with significant improvement, patient also had uncontrolled blood pressures managed with multiple antihypertensives' and chronic lower extremity wounds, evaluated by wound care nurse as well as wound care surgeon, scheduled for surgical debridement tomorrow History Interval history: I have seen and examined the patient at the bedside this morning Patient's chart and medications reviewed Patient was admitted with a flutter with rapid ventricular rate Now rate controlled Noncompliant with medications Today patient feels slightly better No new complaints Vital signs reviewed Hospitalist Physical - Constitutional Vitals: Temp Pulse Resp BP Pulse Ox 97.9 F 62 18 121/91 100 04/08/20 03:35 04/08/20 15:56 04/08/20 15:56 04/08/20 15:56 04/08/20 15:56 General appearance: Present: no acute distress, well-nourished, obese (Morbidly obese) - EENT Eyes: Present: PERRL, EOM intact - Neck Neck: Present: supple, normal ROM - Respiratory Respiratory effort: normal Respiratory: bilateral: diminished, negative: rales, rhonchi, wheezing - Cardiovascular Rhythm: regular Heart Sounds: Present: S1 & S2 - Extremities Extremities: no ischemia, No edema Extremity abnormal: other (Chronic leg wounds bilateral) - Abdominal General gastrointestinal: soft, non-tender, non-distended, normal bowel sounds - Integumentary Integumentary: Present: clear, warm - Psychiatric Psychiatric: appropriate mood/affect, cooperative - Neurologic Neurologic: CNII-XII intact, moves all extremities HEART Score - HEART Score Troponin: Troponin T < 0.010 ng/mL (0.00-0.029) 04/07/20 15:09 Results - Labs CBC & Chem 7: 04/07/20 07:41 04/08/20 06:50 Labs: Laboratory Last Values WBC 9.3 K/mm3 (4.5-11.0) 04/07/20 07:41 RBC 3.52 M/mm3 (3.65-5.03) L 04/07/20 07:41 Hgb 10.4 gm/dl (11.8-15.2) L 04/07/20 07:41 Hct 31.9 % (35.5-45.6) L 04/07/20 07:41 MCV 91 fl (84-94) 04/07/20 07:41 MCH 30 pg (28-32) 04/07/20 07:41 MCHC 33 % (32-34) 04/07/20 07:41 RDW 15.2 % (13.2-15.2) 04/07/20 07:41 Plt Count 338 K/mm3 (140-440) 04/07/20 07:41 Lymph % (Auto) 20.5 % (13.4-35.0) 04/07/20 07:41 Pope % (Auto) 7.7 % (0.0-7.3) H 04/07/20 07:41 Eos % (Auto) 3.4 % (0.0-4.3) 04/07/20 07:41 Baso % (Auto) 0.8 % (0.0-1.8) 04/07/20 07:41 Lymph # (Auto) 1.9 K/mm3 (1.2-5.4) 04/07/20 07:41 Pope # (Auto) 0.7 K/mm3 (0.0-0.8) 04/07/20 07:41 Eos # (Auto) 0.3 K/mm3 (0.0-0.4) 04/07/20 07:41 Baso # (Auto) 0.1 K/mm3 (0.0-0.1) 04/07/20 07:41 Seg Neutrophils % 67.6 % (40.0-70.0) 04/07/20 07:41 Seg Neutrophils # 6.3 K/mm3 (1.8-7.7) 04/07/20 07:41 Sodium 139 mmol/L (137-145) 04/08/20 06:50 Potassium 3.9 mmol/L (3.6-5.0) 04/08/20 06:50 Chloride 102.1 mmol/L (98-107) 04/08/20 06:50 Carbon Dioxide 28 mmol/L (22-30) 04/08/20 06:50 Anion Gap 13 mmol/L 04/08/20 06:50 BUN 22 mg/dL (9-20) H 04/08/20 06:50 Creatinine 1.0 mg/dL (0.8-1.3) 04/08/20 06:50 Estimated GFR > 60 ml/min 04/08/20 06:50 BUN/Creatinine Ratio 22 % 04/08/20 06:50 Glucose 162 mg/dL (75-100) H 04/08/20 06:50 POC Glucose 206 (70-105) H 04/08/20 11:38 Calcium 8.8 mg/dL (8.4-10.2) 04/08/20 06:50 Troponin T < 0.010 ng/mL (0.00-0.029) 04/07/20 15:09 NT-Pro-B Natriuret Pep 408.3 pg/mL (0-900) 04/07/20 07:41 TSH 1.260 mlU/mL (0.270-4.200) 04/07/20 15:09 Thyroxine (T4) 6.0 ug/dL (4.0-12.0) 04/07/20 15:09 Coronavirus (PCR) Negative (Negative) 04/08/20 10:42 Wilkinson/IV: Voiding Method Urinal IV Catheter Type [Right Hand] Peripheral IV IV Catheter Type [Left Hand] Peripheral IV IV Catheter Type [Left INT / Saline Lock Antecubital] Active Medications - Current Medications Current Medications: Generic Name Dose Route Start Last Admin Trade Name Freq PRN Reason Stop Dose Admin Acetaminophen 650 mg 04/07/20 12:30 Tylenol PO Q6H PRN Pain, Mild (1-3) Amiodarone HCl 200 mg 04/08/20 11:00 04/08/20 11:54 Cordarone PO 200 mg BID TALIA Administration Apixaban 5 mg 04/07/20 22:00 04/08/20 11:05 Eliquis PO 5 mg Q12HR TALIA Administration Protocol Aspirin 81 mg 04/08/20 10:00 04/08/20 11:06 Baby Aspirin PO 81 mg QDAY [facility] Administration Atorvastatin Calcium 40 mg 04/07/20 22:00 04/07/20 21:27 Lipitor PO 40 mg QHS [facility] Administration Clindamycin HCl 300 mg 04/07/20 14:00 04/08/20 13:36 Cleocin PO 300 mg QID [facility] Administration Furosemide 40 mg 04/07/20 18:00 04/08/20 05:15 Lasix IV 40 mg 0600,1800 TALIA Administration Gabapentin 300 mg 04/07/20 14:00 04/08/20 14:25 Gabapentin PO 300 mg Q8HR [facility]IA Administration Amiodarone HCl 900 mg/ 500 mls @ 16.667 mls/hr 04/07/20 19:30 04/07/20 18:33 Dextrose IV 04/08/20 23:00 0.5 mg/min DIRECT TALIA 16.667 mls/hr Administration Protocol 0.5 MG/MIN Labetalol HCl 10 mg 04/07/20 13:58 04/08/20 09:35 Labetalol IV 10 mg Q4H PRN Administration Hypertension Metoprolol Tartrate 5 mg 04/07/20 13:46 Metoprolol IV PRN PRN Tachyarrhythmias Metoprolol Tartrate 100 mg 04/08/20 11:30 04/08/20 11:55 Metoprolol PO 100 mg BID [facility]IA Administration Morphine Sulfate 2 mg 04/08/20 12:01 04/08/20 13:37 Morphine IV 2 mg Q4H PRN Administration Pain, Moderate (4-6) Oxycodone/Acetaminophen 1 tab 04/07/20 14:46 04/08/20 11:53 Percocet 5/325 PO 1 tab Q6H PRN Administration Pain, Moderate (4-6) Pantoprazole Sodium 40 mg 04/08/20 07:30 04/08/20 09:35 Protonix PO 40 mg QDAC [facility] Administration
--- NOTE | 2020-04-08 17:43 | Consultation ---
History of Present Illness Consult date: 04/08/20 Chief complaint: Bilateral leg ulcerations - History of present illness History of present illness: 64 yo non-smoking male with a long h/o ulcerations of his bilateral legs. He has a h/o Afib, CHF and CAD. Past History Past Medical History: atrial fib, CAD, heart failure, hypertension Past Surgical History: hernia repair Social history: denies: smoking, alcohol abuse, prescription drug abuse Family history: no significant family history Medications and Allergies Allergies Allergy/AdvReac Type Severity Reaction Status Date / Time No Known Allergies Allergy Unverified 10/18/17 01:33 Home Medications Medication Instructions Recorded Confirmed Last Taken Type Furosemide [Lasix TAB] 40 mg PO QDAY 04/07/20 04/07/20 Unknown History Gabapentin [Neurontin] 300 mg PO Q8HR 04/07/20 04/07/20 Unknown History Lisinopril [Zestril TAB] 40 mg PO QDAY 04/07/20 04/07/20 Unknown History Metoprolol Tartrate [Lopressor] 50 mg PO BID 04/07/20 04/07/20 Unknown History NIFEdipine [Procardia Xl] 60 mg PO QDAY 04/07/20 04/07/20 Unknown History Active Meds: Active Medications Acetaminophen (Tylenol) 650 mg PO Q6H PRN PRN Reason: Pain, Mild (1-3) Amiodarone HCl (Cordarone) 200 mg PO BID [facility] Last Admin: 04/08/20 11:54 Dose: 200 mg Documented by: Apixaban (Eliquis) 5 mg PO Q12HR [facility]ALIA; Protocol Last Admin: 04/08/20 11:05 Dose: 5 mg Documented by: Aspirin (Baby Aspirin) 81 mg PO QDAY [facility] Last Admin: 04/08/20 11:06 Dose: 81 mg Documented by: Atorvastatin Calcium (Lipitor) 40 mg PO QHS [facility] Last Admin: 04/07/20 21:27 Dose: 40 mg Documented by: Furosemide (Lasix) 40 mg IV 0600,1800 [facility] Last Admin: 04/08/20 05:15 Dose: 40 mg Documented by: Gabapentin (Gabapentin) 300 mg PO Q8HR [facility] Last Admin: 04/08/20 14:25 Dose: 300 mg Documented by: Amiodarone HCl 900 mg/ (Dextrose) 500 mls @ 16.667 mls/hr IV DIRECT TALIA; Protocol Stop: 04/08/20 23:00 Last Admin: 04/07/20 18:33 Dose: 0.5 mg/min, 16.667 mls/hr Documented by: Clindamycin HCl (Cleocin 600 Mg/50 Ml) 600 mg in 50 mls @ 100 mls/hr IV Q8HR [facility]ALIA; Protocol Labetalol HCl (Labetalol) 10 mg IV Q4H PRN PRN Reason: Hypertension Last Admin: 04/08/20 09:35 Dose: 10 mg Documented by: Metoprolol Tartrate (Metoprolol) 5 mg IV PRN PRN PRN Reason: Tachyarrhythmias Metoprolol Tartrate (Metoprolol) 100 mg PO BID [facility] Last Admin: 04/08/20 11:55 Dose: 100 mg Documented by: Morphine Sulfate (Morphine) 2 mg IV Q4H PRN PRN Reason: Pain, Moderate (4-6) Last Admin: 04/08/20 13:37 Dose: 2 mg Documented by: Oxycodone/Acetaminophen (Percocet 5/325) 1 tab PO Q6H PRN PRN Reason: Pain, Moderate (4-6) Last Admin: 04/08/20 11:53 Dose: 1 tab Documented by: Pantoprazole Sodium (Protonix) 40 mg PO QDAC [facility] Last Admin: 04/08/20 09:35 Dose: 40 mg Documented by: Review of Systems All systems: negative (none) Exam Vital Signs Temp Pulse Resp BP Pulse Ox 98.5 F 128 H 28 H 218/135 96 04/07/20 07:21 04/07/20 07:21 04/07/20 07:21 04/07/20 07:21 04/07/20 07:21 - General physical appearance Positive: well developed, well nourished, no distress - Eyes Positive: PERRL, normal occular movement - ENT Positive: normal pinna, normal nares, normal mucosa, no hearing loss, no congestion - Neck Positive: no masses, no bruits, trachea midline, no venous distension - Respiratory Positive: normal expansion, normal respiratory effort, clear to auscultation - Cardiovascular Rhythm: regular Heart Sounds: Present: S1 & S2. Absent: rub, click - Extremities Extremities: no ischemia, pulses symmetrical, No edema - Breasts Breasts: deferred - Abdomen Abdomen: Present: soft, bowel sounds normal. Absent: tender, distended Hernia: none - Genitourinary Male Genitourinary: deferred - Integumentary other (There is a 15 X 16 X 0.3 cm ulcer of the left lateral leg covered with necrotic tissue and biofilm. There is a 3 X 6 X 0.5 cm similar appearing ulcer of the right medial ankle. There is also a 9 X 6 X 0.3 cm similar appearing ulcer of the right lateral leg. There is 2+ ankle edema bilaterally. DP pulses are weak bilaterally.) - Neurologic Neurologic: alert and oriented to time, place and person, motor strength and sensation are grossly intact - Musculoskeletal normal gait, normal posture - Psychiatric Psychiatric: appropriate mood/affect, intact judgment & insight Results - Labs 04/07/20 07:41 04/08/20 06:50 Abnormal lab results 04/08/20 04/08/20 04/08/20 Range/Units 06:50 11:38 16:16 BUN 22 H (9-20) mg/dL Glucose 162 H (75-100) mg/dL POC Glucose 206 H 193 H (70-105) Diabetes panel 04/08/20 Range/Units 06:50 Sodium 139 (137-145) mmol/L Potassium 3.9 (3.6-5.0) mmol/L Chloride 102.1 (98-107) mmol/L Carbon Dioxide 28 (22-30) mmol/L BUN 22 H (9-20) mg/dL Creatinine 1.0 (0.8-1.3) mg/dL Glucose 162 H (75-100) mg/dL Calcium 8.8 (8.4-10.2) mg/dL Calcium panel 04/08/20 Range/Units 06:50 Calcium 8.8 (8.4-10.2) mg/dL Pituitary panel 04/08/20 Range/Units 06:50 Sodium 139 (137-145) mmol/L Potassium 3.9 (3.6-5.0) mmol/L Chloride 102.1 (98-107) mmol/L Carbon Dioxide 28 (22-30) mmol/L BUN 22 H (9-20) mg/dL Creatinine 1.0 (0.8-1.3) mg/dL Glucose 162 H (75-100) mg/dL Calcium 8.8 (8.4-10.2) mg/dL Adrenal panel 04/08/20 Range/Units 06:50 Sodium 139 (137-145) mmol/L Potassium 3.9 (3.6-5.0) mmol/L Chloride 102.1 (98-107) mmol/L Carbon Dioxide 28 (22-30) mmol/L BUN 22 H (9-20) mg/dL Creatinine 1.0 (0.8-1.3) mg/dL Glucose 162 H (75-100) mg/dL Calcium 8.8 (8.4-10.2) mg/dL Assessment and Plan - Patient Problems (1) Chronic venous hypertension (idiopathic) with ulcer of bilateral lower extremity Current Visit: Yes Status: Acute Plan to address problem: 1) Local wound care 2) BLE venous dopplers tomorrow 3) BLE arterial dopplers tomorrow 4) I will debride the ulcers tomorrow 5) Optimal management of pt's CHF is important.
[2020-04-08] MEDS: CLINDAMYCIN 600 MG/50 mL 600 MG/50 ML BAG IV SCH (21:49)
[2020-04-09 05:56] LABS: BUN/Creatinine Ratio 20; Blood Urea Nitrogen 24 mg/dL (9-20); Calcium 8.9 mg/dL (8.4-10.2); Hemolysis Index 20
[2020-04-09] MEDS: CLINDAMYCIN 600 MG/50 mL 600 MG/50 ML BAG IV SCH ×3 (05:56→21:51)
[2020-04-09] MEDS: FUROSEMIDE 40 MG/4 ML INJ IV SCH ×2 (05:56→17:22)
[2020-04-09] MEDS: GABAPENTIN 300 MG CAP PO SCH ×3 (05:56→21:51)
--- NOTE | 2020-04-09 10:25 | Progress Note ---
Assessment and Plan Assessment and plan: Morbidly obese 62-year-old male patient was admitted through emergency room with atrial flutter with rapid ventricular rate cardiology evaluated Started on amiodarone drip with significant improvement, patient also had uncontrolled blood pressures managed with multiple antihypertensives' and chronic lower extremity wounds, evaluated by wound care nurse as well as wound care surgeon, scheduled for surgical debridement tomorrow 04/09: Cont present cardiac management, including PO amio, PO lopressor, E liquis, IV lasix. General surgery recs noted - pt for BLE venous and arterial dopplers and debridement of BLE ulcers today. Considering the nature of the lower ext wounds, I believe will be beneficial to obtain vascular consultation. I did discuss a beat with the patient who reports that he was managing this himself at home. --Hypertensive urgency; POA Well-controlled , continue current antihypertensives, PRN labetalol, advised compliance with medications Closely monitor blood pressures --Atrial flutter with rapid ventricular rate POA Cardiology initially recommended MICHAEL cardioversion However today patient's heart rate is controlled No indication for cardioversion Amiodarone, Metoprolol and Eliquis --Acute congestive heart failure; unknown ejection fraction IV diuretics, echocardiogram for LV function ejection fraction Low-sodium diet, fluid restriction --Chronic lower extremity wound; Clindamycin, wound care consult Possible surgical debridement Wound care surgeon consult --History of peripheral vascular disease; Aspirin, will add statin --Obesity; BMI 38.3 Patient needs weight reduction when medically stable --Noncompliance; Counseling done patient strongly advised to comply with medications diet follow-up visits, Verbalized understanding --DVT prophylaxis; Lovenox --Full CODE STATUS We will closely monitor patient and adjust the management as needed Plan of care reviewed with the patient, his nurse Cardiology recommendations noted and appreciated. History Interval history: Patient Hospitalist Physical - Constitutional Vitals: Temp Pulse Resp BP Pulse Ox 98.2 F 85 20 157/100 98 04/09/20 07:30 04/09/20 07:30 04/09/20 07:30 04/09/20 07:30 04/09/20 07:30 General appearance: Present: no acute distress, well-nourished, obese (Morbidly obese) HEART Score - HEART Score Troponin: Troponin T < 0.010 ng/mL (0.00-0.029) 04/07/20 15:09 Results - Labs CBC & Chem 7: 04/07/20 07:41 04/09/20 05:00 Labs: Laboratory Last Values WBC 9.3 K/mm3 (4.5-11.0) 04/07/20 07:41 RBC 3.52 M/mm3 (3.65-5.03) L 04/07/20 07:41 Hgb 10.4 gm/dl (11.8-15.2) L 04/07/20 07:41 Hct 31.9 % (35.5-45.6) L 04/07/20 07:41 MCV 91 fl (84-94) 04/07/20 07:41 MCH 30 pg (28-32) 04/07/20 07:41 MCHC 33 % (32-34) 04/07/20 07:41 RDW 15.2 % (13.2-15.2) 04/07/20 07:41 Plt Count 338 K/mm3 (140-440) 04/07/20 07:41 Lymph % (Auto) 20.5 % (13.4-35.0) 04/07/20 07:41 Yell % (Auto) 7.7 % (0.0-7.3) H 04/07/20 07:41 Eos % (Auto) 3.4 % (0.0-4.3) 04/07/20 07:41 Baso % (Auto) 0.8 % (0.0-1.8) 04/07/20 07:41 Lymph # (Auto) 1.9 K/mm3 (1.2-5.4) 04/07/20 07:41 Yell # (Auto) 0.7 K/mm3 (0.0-0.8) 04/07/20 07:41 Eos # (Auto) 0.3 K/mm3 (0.0-0.4) 04/07/20 07:41 Baso # (Auto) 0.1 K/mm3 (0.0-0.1) 04/07/20 07:41 Seg Neutrophils % 67.6 % (40.0-70.0) 04/07/20 07:41 Seg Neutrophils # 6.3 K/mm3 (1.8-7.7) 04/07/20 07:41 Sodium 139 mmol/L (137-145) 04/09/20 05:00 Potassium 4.7 mmol/L (3.6-5.0) D 04/09/20 05:00 Chloride 100.9 mmol/L (98-107) 04/09/20 05:00 Carbon Dioxide 23 mmol/L (22-30) 04/09/20 05:00 Anion Gap 20 mmol/L 04/09/20 05:00 BUN 24 mg/dL (9-20) H 04/09/20 05:00 Creatinine 1.2 mg/dL (0.8-1.3) 04/09/20 05:00 Estimated GFR > 60 ml/min 04/09/20 05:00 BUN/Creatinine Ratio 20 % 04/09/20 05:00 Glucose 186 mg/dL (75-100) H 04/09/20 05:00 POC Glucose 171 (70-105) H 04/09/20 07:25 Calcium 8.9 mg/dL (8.4-10.2) 04/09/20 05:00 Troponin T < 0.010 ng/mL (0.00-0.029) 04/07/20 15:09 NT-Pro-B Natriuret Pep 408.3 pg/mL (0-900) 04/07/20 07:41 TSH 1.260 mlU/mL (0.270-4.200) 04/07/20 15:09 Thyroxine (T4) 6.0 ug/dL (4.0-12.0) 04/07/20 15:09 Coronavirus (PCR) Negative (Negative) 04/08/20 10:42 Wilkinson/IV: Voiding Method Urinal IV Catheter Type [Right Hand] Peripheral IV IV Catheter Type [Left Hand] Peripheral IV IV Catheter Type [Left INT / Saline Lock Antecubital] Active Medications - Current Medications Current Medications: Generic Name Dose Route Start Last Admin Trade Name Freq PRN Reason Stop Dose Admin Acetaminophen 650 mg 04/07/20 12:30 Tylenol PO Q6H PRN Pain, Mild (1-3) Amiodarone HCl 200 mg 04/08/20 11:00 04/08/20 21:48 Cordarone PO 200 mg BID TALIA Administration Apixaban 5 mg 04/07/20 22:00 04/08/20 21:48 Eliquis PO 5 mg Q12HR TALIA Administration Protocol Aspirin 81 mg 04/08/20 10:00 04/08/20 11:06 Baby Aspirin PO 81 mg QDAY TALIA Administration Atorvastatin Calcium 40 mg 04/07/20 22:00 04/08/20 21:49 Lipitor PO 40 mg QHS TALIA Administration Furosemide 40 mg 04/07/20 18:00 04/09/20 05:56 Lasix IV 40 mg 0600,1800 TALIA Administration Gabapentin 300 mg 04/07/20 14:00 04/09/20 05:56 Gabapentin PO 300 mg Q8HR TALIA Administration Clindamycin HCl 600 mg in 50 mls @ 100 mls/hr 04/08/20 22:00 04/09/20 05:56 Cleocin 600 Mg/50 Ml IV 100 mls/hr Q8HR TALIA Administration Protocol Labetalol HCl 10 mg 04/07/20 13:58 04/08/20 09:35 Labetalol IV 10 mg Q4H PRN Administration Hypertension Metoprolol Tartrate 5 mg 04/07/20 13:46 Metoprolol IV PRN PRN Tachyarrhythmias Metoprolol Tartrate 100 mg 04/08/20 11:30 04/08/20 21:48 Metoprolol PO 100 mg BID TALIA Administration Morphine Sulfate 2 mg 04/08/20 12:01 04/08/20 20:14 Morphine IV 2 mg Q4H PRN Administration Pain, Moderate (4-6) Oxycodone/Acetaminophen 1 tab 04/07/20 14:46 04/08/20 11:53 Percocet 5/325 PO 1 tab Q6H PRN Administration Pain, Moderate (4-6) Pantoprazole Sodium 40 mg 04/08/20 07:30 04/08/20 09:35 Protonix PO 40 mg QDAC TALIA Administration
[2020-04-09] MEDS: METOPROLOL TARTRATE 50 MG TAB PO SCH ×2 (10:48→21:50)
[2020-04-09] MEDS: AMIODARONE 200 MG TAB PO SCH ×2 (10:48→21:51)
[2020-04-09] MEDS: APIXABAN 5 MG TAB PO SCH ×2 (10:48→21:50)
[2020-04-09] MEDS: MORPHINE 2 MG/1 ML INJ IV PRN ×3 (10:48→21:58)
[2020-04-09] MEDS: ASPIRIN 81 MG TAB CHEW PO SCH (10:48)
[2020-04-09] MEDS: PANTOPRAZOLE 40 MG TAB PO SCH (10:49)
[2020-04-09] MEDS ORDERED: LIDOCAINE (4%) 40 MG/ML TOPICAL SOLN 50 ML BOTTLE TP STA (11:14)
--- NOTE | 2020-04-09 11:54 | Progress Note ---
Assessment and Plan Pt in AFlutter with HR 70 - 90s overnight, feeling better today. Cont present cardiac management, including PO amio, PO lopressor, Eliquis, IV lasix. Await echo. General surgery recs noted - pt for BLE venous and arterial dopplers and debridement of BLE ulcers today. The patient has been seen in conjunction with Dr. Maite Escobar who agrees with the assessment and plan of care. - Patient Problems (1) Acute heart failure Current Visit: Yes Status: Acute (2) Atrial flutter with rapid ventricular response Current Visit: Yes Status: Acute (3) Uncontrolled hypertension Current Visit: Yes Status: Chronic (4) PVD (peripheral vascular disease) Current Visit: Yes Status: Chronic (5) Wound of lower extremity Current Visit: Yes Status: Acute (6) History of atrial fibrillation Current Visit: Yes Status: Chronic (7) Obesity Current Visit: Yes Status: Chronic (8) Anemia Current Visit: Yes Status: Acute (9) Medical non-compliance Current Visit: Yes Status: Chronic Subjective Date of service: 04/09/20 Principal diagnosis: AFlutter RVR; HF Interval history: pt resting in bed, states he is feeling a little better today, BLE wound pain is his primary complaint. [facility] Objective Last Vital Signs Temp 98.0 F 04/09/20 11:00 Pulse 78 04/09/20 11:00 Resp 20 04/09/20 11:00 BP 140/86 04/09/20 11:00 Pulse Ox 99 04/09/20 11:00 - Physical Examination General: No Apparent Distress HEENT: Positive: PERRL, Normocephaly, Mucus Membranes Moist Neck: Positive: neck supple, trachea midline Cardiac: Positive: irregularly irregular, S1/S2 Lungs: Positive: Decreased Breath Sounds Neuro: Positive: Grossly Intact Abdomen: Negative: Tender Skin: Positive: Other (BLE wounds covered in dressings). Negative: Rash Musculoskeletal: other (BLE wounds) Extremities: Present: +2 Edema (BLE) - Labs and Meds Comprehensive Metabolic Panel 04/09/20 Range/Units 05:00 Sodium 139 (137-145) mmol/L Potassium 4.7 D (3.6-5.0) mmol/L Chloride 100.9 (98-107) mmol/L Carbon Dioxide 23 (22-30) mmol/L BUN 24 H (9-20) mg/dL Creatinine 1.2 (0.8-1.3) mg/dL Glucose 186 H (75-100) mg/dL Calcium 8.9 (8.4-10.2) mg/dL - Imaging and Cardiology EKG: report reviewed, image reviewed Echo: pending - Telemetry EKG Rhythm: Atrial Flutter
--- NOTE | 2020-04-09 13:58 | Vascular Lab Report ---
DUPLEX DOPPLER LOWER EXTREMITY VEINS, BILATERAL INDICATION / CLINICAL INFORMATION: BLE leg/ankle ulcerations. TECHNIQUE: Duplex doppler imaging was performed through the veins of both lower extremities using venous porsche baltazar and other maneuvers. COMPARISON: None available. FINDINGS: RIGHT COMMON FEMORAL VEIN: Negative. RIGHT FEMORAL VEIN: Negative. RIGHT POPLITEAL VEIN: Negative. RIGHT CALF VEINS: Negative. LEFT COMMON FEMORAL VEIN: Negative. LEFT FEMORAL VEIN: Negative. LEFT POPLITEAL VEIN: Negative. LEFT CALF VEINS: Negative. ADDITIONAL FINDINGS: None. IMPRESSION: No sonographic evidence for DVT in either lower extremity. Signer Name: Uche Whitt MD Signed: 04/09/2020 1:54 PM Workstation Name: [id number]
--- NOTE | 2020-04-09 14:01 | Vascular Lab Report ---
DUPLEX DOPPLER LOWER EXTREMITY ARTERIAL, BILATERAL INDICATION / CLINICAL INFORMATION: BLE ulcerations. TECHNIQUE: Arterial duplex examination of both lower extremities performed using B-mode, color flow and spectral Doppler assessment. FINDINGS: RIGHT: Common Femoral Artery: PSV 79 cm/sec. Triphasic waveform. Proximal SFA: PSV 65 cm/sec. Triphasic waveform. Mid SFA: PSV 63 cm/sec. Triphasic waveform. Distal SFA: PSV 64 cm/sec. Triphasic waveform. Popliteal artery: PSV 91 cm/sec. Triphasic waveform. Posterior tibial artery: PSV 79 cm/sec. Triphasic waveform. Dorsalis Pedis Artery: PSV 85 cm/sec. Triphasic waveform. LEFT: Common Femoral Artery: PSV 73 cm/sec. Triphasic waveform. Proximal SFA: PSV 71 cm/sec. Triphasic waveform. Mid SFA: PSV 67 cm/sec. Triphasic waveform. Distal SFA: PSV 54 cm/sec. Triphasic waveform. Popliteal artery: PSV 57 cm/sec. Triphasic waveform. Posterior tibial artery: PSV 91 cm/sec. Triphasic waveform. Dorsalis Pedis Artery: PSV 55 cm/sec. Triphasic waveform. Right MEHDI: Not performed. Left MEHDI: Not performed. IMPRESSION: 1. No significant lower extremity peripheral artery disease. Ankle-Brachial Index (MEHDI): - Calcified arteries > 1.4 - Normal = 0.9-1.4 - Mild PAD = 0.7-0.89 - Moderate PAD = 0.51-0.69 - Severe PAD < 0.5 Doppler Waveform: - Triphasic is normal. - Biphasic is abnormal if clear transition from triphasic signal along vascular tree. - Monophasic is abnormal. Signer Name: Ildefonso Brown MD Signed: 04/09/2020 1:57 PM Workstation Name: [email or web address]
[2020-04-09] MEDS: SODIUM HYPOCHLORITE, DAKIN'S 1/2 STRENGTH (0.25%) 473 ML TOPICAL SOLN TP SCH (22:57)
[2020-04-10] MEDS: MORPHINE 2 MG/1 ML INJ IV PRN ×3 (01:56→21:17)
[2020-04-10] MEDS: oxyCODONE /ACETAMINOPHEN 5-325MG TAB PO PRN ×4 (04:36→23:57)
[2020-04-10] MEDS: GABAPENTIN 300 MG CAP PO SCH ×3 (05:50→21:11)
[2020-04-10] MEDS: FUROSEMIDE 40 MG/4 ML INJ IV SCH ×2 (05:50→17:49)
[2020-04-10] MEDS: CLINDAMYCIN 600 MG/50 mL 600 MG/50 ML BAG IV SCH ×3 (05:51→21:10)
[2020-04-10 06:12] LABS: Hematocrit 32.3 % (35.5-45.6); Hemoglobin 10.4 gm/dl (11.8-15.2); Mean Corpuscular HGB Conc 32 % (32-34); Mean Corpuscular Volume 89 fl (84-94); Platelet Count 386 K/mm3 (140-440); Red Blood Count 3.64 M/mm3 (3.65-5.03); Red Cell Distribution Width 15.2 % (13.2-15.2)
[2020-04-10 06:29] LABS: BUN/Creatinine Ratio 20; Blood Urea Nitrogen 22 mg/dL (9-20); Calcium 8.7 mg/dL (8.4-10.2); Hemolysis Index 4
--- NOTE | 2020-04-10 08:04 | Progress Note ---
Assessment and Plan Hypertensive urgency; POA stable continue current antihypertensives, PRN labetalol, advised compliance with medications Continue to monitor blood pressure Atrial flutter with rapid ventricular rate POA Cardiology initially recommended MICHAEL cardioversion However today patient's heart rate is controlled No indication for cardioversion Amiodarone, Metoprolol and Eliquis Acute congestive heart failure; unknown ejection fraction Continue IV diuretics, echocardiogram for LV function ejection fraction-result pending Senior Design Engineer following Advised on Low-sodium diet, fluid restriction Chronic lower extremity wound; continue Clindamycin, wound care consult Possible surgical debridement Wound care surgeon consult History of peripheral vascular disease; Aspirin and statin Duplex scan scan bilateral lower leg artery- No evidence of LL peripheral artery disease Bilateral leg US-no evidence of DVT Obesity; BMI 38.3 Discussed lifstyle modification Weight management-healthy diet Noncompliance; advised on importance of medications compliance and follow-up appointments patient voiced understanding. He said he was non compliance wiht his medicine due to financial difficulty. Subjective Date of service: 04/10/20 Principal diagnosis: AFlutter RVR; HF Interval history: Patient seen at bedside-warehouse distribution specialist at bedside. Noted bilateral leg wound with dressing He is s/p wound debridment today. Patient reports he is feeling better-he denies cp, sob, and n/v reviewed lab, mar, and v/s. reviewed warehouse distribution specialist recommendation-input appreciated- ECHO ordered-possible d/c tomorrow if stable and ECHO result Objective - Constitutional Vitals: Vital Signs - 12hr 04/09/20 04/09/20 04/09/20 20:31 21:50 21:58 Temperature Pulse Rate 98 H Pulse Rate [ 98 H Apical] Respiratory 18 18 Rate Respiratory Rate [Bilateral Leg] Blood Pressure 167/108 O2 Sat by Pulse 97 Oximetry 04/09/20 04/09/20 04/09/20 22:09 22:28 23:51 Temperature 98.0 F Pulse Rate 95 H Pulse Rate [ Apical] Respiratory 18 18 Rate Respiratory 18 Rate [Bilateral Leg] Blood Pressure 143/98 O2 Sat by Pulse 99 Oximetry 04/10/20 04/10/20 04/10/20 01:56 02:26 03:47 Temperature 98.0 F Pulse Rate 90 Pulse Rate [ Apical] Respiratory 18 18 18 Rate Respiratory Rate [Bilateral Leg] Blood Pressure 164/117 O2 Sat by Pulse 97 Oximetry 04/10/20 04/10/20 04/10/20 04:36 04:37 05:36 Temperature Pulse Rate 90 Pulse Rate [ Apical] Respiratory 18 18 Rate Respiratory Rate [Bilateral Leg] Blood Pressure 164/117 O2 Sat by Pulse Oximetry General appearance: Present: no acute distress, obese - EENT Eyes: PERRL, EOM intact ENT: hearing intact, clear oral mucosa Ears: bilateral: normal - Neck Neck: supple, normal ROM - Respiratory Respiratory effort: normal Respiratory: bilateral: CTA - Breasts Breasts: normal - Cardiovascular Rhythm: regular Heart Sounds: Present: S1 & S2. Absent: gallop, rub Extremities: pulses intact, normal color, Full ROM, abnormal (lower leg edema a nd ulcer. S/p debridment) - Gastrointestinal General gastrointestinal: Present: soft, non-tender, non-distended, normal bowel sounds - Genitourinary Male genitourinary: normal - Integumentary Integumentary: erythema (bilateral lower leg wound) - Musculoskeletal Musculoskeletal: 1, strength equal bilaterally - Neurologic Neurologic: moves all extremities - Psychiatric Psychiatric: memory intact, appropriate mood/affect, intact judgment & insight - Allied health notes Allied health notes reviewed: nursing - Labs CBC & Chem 7: 04/10/20 05:34 04/10/20 05:34 Labs: Abnormal lab results 04/09/20 04/09/20 04/09/20 Range/Units 07:25 12:40 16:47 WBC (4.5-11.0) K/mm3 RBC (3.65-5.03) M/mm3 Hgb (11.8-15.2) gm/dl Hct (35.5-45.6) % BUN (9-20) mg/dL Glucose (75-100) mg/dL POC Glucose 171 H 215 H 200 H (70-105) 04/09/20 04/10/20 04/10/20 Range/Units 21:10 05:34 05:34 WBC 11.3 H (4.5-11.0) K/mm3 RBC 3.64 L (3.65-5.03) M/mm3 Hgb 10.4 L (11.8-15.2) gm/dl Hct 32.3 L (35.5-45.6) % BUN 22 H (9-20) mg/dL Glucose 183 H (75-100) mg/dL POC Glucose 145 H (70-105) HEART Score - HEART Score Troponin: Troponin T < 0.010 ng/mL (0.00-0.029) 04/07/20 15:09
[2020-04-10] MEDS: PANTOPRAZOLE 40 MG TAB PO SCH (08:50)
[2020-04-10] MEDS ORDERED: HYDROmorphone 2 MG/1 ML INJ IV SCH (09:01)
[2020-04-10] MEDS: METOPROLOL TARTRATE 50 MG TAB PO SCH ×2 (10:08→21:11)
[2020-04-10] MEDS: ASPIRIN 81 MG TAB CHEW PO SCH (10:08)
[2020-04-10] MEDS: APIXABAN 5 MG TAB PO SCH ×2 (10:08→21:11)
[2020-04-10] MEDS: AMIODARONE 200 MG TAB PO SCH ×2 (10:09→21:11)
[2020-04-10] MEDS: SODIUM HYPOCHLORITE, DAKIN'S 1/2 STRENGTH (0.25%) 473 ML TOPICAL SOLN TP SCH ×2 (10:20→21:12)
--- NOTE | 2020-04-10 11:57 | Procedure Note ---
Date of procedure: 04/10/20 Pre-op diagnosis: Venous stasis ulcers of bilat legs and right ankle Post-op diagnosis: same Procedure: Debridement of bilateral leg and right ankle ulcers Description of procedure: Pt was positioned left side down. The right lateral leg ulceration was prepped and draped. Necrotic eschar & SQ tissue was surgically, excisionally debrided with a curette. Bleeding was minimal and was controlled with pressure. Pt was repositioned, right side down. The left lateral leg and right medial ankle ulcers were prepped and draped. Necrotic SQ tissue and biofilm were surgically, excisionally debrided from both sites with a curette. Bleeding was minimal and was controlled with pressure. Wounds were then dressed by the nurse. Pt tolerated the procedure well. Post-debridement measurements: 1) Right lateral le X 5 X 0.7 cm 2) Left lateral le X 16 X 0.4 cm 3) Right medial ankle: 3 X 6 X 0.7 cm Anesthesia: other (4% topical Lidocaine) Surgeon: ОЛЕГ MUNSON Estimated blood loss: minimal Pathology: none Specimen disposition: discarded Condition: stable Disposition: no change
--- NOTE | 2020-04-10 15:14 | Consultation ---
History of Present Illness - Reason for Consult Consult date: 04/10/20 LE wounds Requesting physician: JOON HOROWITZ - History of Present Illness 64-year-old male patient with significant past medical history of hypertension, CHF, A. fib, peripheral vascular disease, noncompliant with medications due to social reasons, presented to the emergency room with worsening shortness of breath and worsening leg edema and reduced effort tolerance and shortness of breath on exertion. Patient is gives history of debridement and May 2019, and patient reports that he does his own dressing at home as needed In the ER patient is noted to have atrial flutter with rapid ventricular rate, slightly improved with metoprolol. Patient has not taken medications for many months. Vascular consulted for the bilateral lower extremity ulcerations. Patient has had bilateral lower extremity ulcerations for 2 years with debridements and other procedures performed. He is also had multilayer compressive dressings in the past. Past History Past Medical History: atrial fib, CAD, heart failure, hypertension Past Surgical History: hernia repair Social history: denies: smoking, alcohol abuse, prescription drug abuse Family history: no significant family history Medications and Allergies Allergies Allergy/AdvReac Type Severity Reaction Status Date / Time No Known Allergies Allergy Unverified 10/18/17 01:33 Home Medications Medication Instructions Recorded Confirmed Last Taken Type Furosemide [Lasix TAB] 40 mg PO QDAY 04/07/20 04/07/20 Unknown History Gabapentin [Neurontin] 300 mg PO Q8HR 04/07/20 04/07/20 Unknown History Lisinopril [Zestril TAB] 40 mg PO QDAY 04/07/20 04/07/20 Unknown History Metoprolol Tartrate [Lopressor] 50 mg PO BID 04/07/20 04/07/20 Unknown History NIFEdipine [Procardia Xl] 60 mg PO QDAY 04/07/20 04/07/20 Unknown History Active Meds: Active Medications Acetaminophen (Tylenol) 650 mg PO Q6H PRN PRN Reason: Pain, Mild (1-3) Amiodarone HCl (Cordarone) 200 mg PO BID [facility] Last Admin: 04/10/20 10:09 Dose: 200 mg Documented by: Apixaban (Eliquis) 5 mg PO Q12HR [facility]; Protocol Last Admin: 04/10/20 10:08 Dose: 5 mg Documented by: Aspirin (Baby Aspirin) 81 mg PO QDAY [facility] Last Admin: 04/10/20 10:08 Dose: 81 mg Documented by: Atorvastatin Calcium (Lipitor) 40 mg PO QHS [facility] Last Admin: 04/09/20 21:50 Dose: 40 mg Documented by: Furosemide (Lasix) 40 mg IV 0600,1800 [facility] Last Admin: 04/10/20 05:50 Dose: 40 mg Documented by: Gabapentin (Gabapentin) 300 mg PO Q8HR [facility] Last Admin: 04/10/20 14:49 Dose: 300 mg Documented by: Clindamycin HCl (Cleocin 600 Mg/50 Ml) 600 mg in 50 mls @ 100 mls/hr IV Q8HR [facility]; Protocol Last Admin: 04/10/20 14:49 Dose: 100 mls/hr Documented by: Labetalol HCl (Labetalol) 10 mg IV Q4H PRN PRN Reason: Hypertension Last Admin: 04/10/20 04:37 Dose: 10 mg Documented by: Metoprolol Tartrate (Metoprolol) 5 mg IV PRN PRN PRN Reason: Tachyarrhythmias Metoprolol Tartrate (Metoprolol) 100 mg PO BID [facility] Last Admin: 04/10/20 10:08 Dose: 100 mg Documented by: Morphine Sulfate (Morphine) 2 mg IV Q4H PRN PRN Reason: Pain, Moderate (4-6) Last Admin: 04/10/20 08:49 Dose: 2 mg Documented by: Oxycodone/Acetaminophen (Percocet 5/325) 2 tab PO Q6H PRN PRN Reason: Pain, Moderate (4-6) Last Admin: 04/10/20 10:07 Dose: 2 tab Documented by: Pantoprazole Sodium (Protonix) 40 mg PO QDAC [facility] Last Admin: 04/10/20 08:50 Dose: 40 mg Documented by: Sodium Hypochlorite (Dakin's Half Strength) 1 applic TP BID [facility] Last Admin: 04/10/20 10:20 Dose: 1 1000units Documented by: Review of Systems All systems: negative (see HPI) Exam - Constitutional Vitals: Temp Pulse Resp BP Pulse Ox 97.6 F 82 18 149/110 100 04/10/20 12:00 04/10/20 12:00 04/10/20 12:00 04/10/20 12:00 04/10/20 11:37 General appearance: Present: no acute distress - EENT Eyes: Present: EOM intact ENT: hearing intact - Respiratory Respiratory effort: normal - Extremities Extremities: normal temperature, normal color, abnormal (Bilateral lower extremity calf ulceration; nonpalpable pedal pulses, 2+ edema of the lower extremities) - Musculoskeletal Musculoskeletal: strength equal bilaterally - Psychiatric Psychiatric: appropriate mood/affect, cooperative - Neurologic Neurologic: moves all extremities Results - Labs CBC & Chem 7: 04/10/20 05:34 04/10/20 05:34 Labs: Abnormal lab results 04/09/20 04/09/20 04/09/20 Range/Units 12:40 16:47 21:10 WBC (4.5-11.0) K/mm3 RBC (3.65-5.03) M/mm3 Hgb (11.8-15.2) gm/dl Hct (35.5-45.6) % BUN (9-20) mg/dL Glucose (75-100) mg/dL POC Glucose 215 H 200 H 145 H (70-105) 04/10/20 04/10/20 04/10/20 Range/Units 05:34 05:34 07:35 WBC 11.3 H (4.5-11.0) K/mm3 RBC 3.64 L (3.65-5.03) M/mm3 Hgb 10.4 L (11.8-15.2) gm/dl Hct 32.3 L (35.5-45.6) % BUN 22 H (9-20) mg/dL Glucose 183 H (75-100) mg/dL POC Glucose 168 H (70-105) 04/10/20 Range/Units 11:53 WBC (4.5-11.0) K/mm3 RBC (3.65-5.03) M/mm3 Hgb (11.8-15.2) gm/dl Hct (35.5-45.6) % BUN (9-20) mg/dL Glucose (75-100) mg/dL POC Glucose 172 H (70-105) Assessment and Plan 64-year-old male with multiple medical issues including bilateral lower extremity ulcerations for 2 years. Differential for ulcerations is venous ulcers versus pyoderma gangrenosum. Patient has nonpalpable pedal pulses, but on ultrasound has clearly triphasic lower extremity arterial waveforms. DVT study demonstrates no acute DVT. I had a long discussion with the patient and explained to him that he would benefit from venous evaluation as an outpatient with treatment of venous incompetence. I also discussed with him that upon further debridements, I would recommend sending the tissue off to pathology to assess for possible pyoderma gangrenosum. I explained to him that if he does not respond to typical venous treatments, then this may represent pyoderma gangrenosum which responds more to steroids. Pyoderma gangrenosum is a diagnosis of exclusion as many times the pathology results are negative. In the interim, I recommend treatment as a venous ulcer which is currently being done. Appreciate consult. Patient will follow-up in 2 weeks. Card provided.
--- NOTE | 2020-04-10 16:10 | Progress Note ---
Assessment and Plan Given significantly reduced LVEF on echo, will consider possible ischemic eval prior to discharge. Cont IV Lasix BID with strict I/Os for now. Closely monitor renal indices. Cont BB. Will add Lisinopril as well. Cont other present cardiac mgmt. Pt seen in conjunction with Dr. Kennedy, who agrees with the assessment and plan of care. - Patient Problems (1) Acute HFrEF (heart failure with reduced ejection fraction) Current Visit: Yes Status: Acute (2) Cardiomyopathy Current Visit: Yes Status: Acute (3) Atrial flutter Current Visit: Yes Status: Acute Plan to address problem: on Eliquis (4) Wound of lower extremity Current Visit: Yes Status: Acute (5) PVD (peripheral vascular disease) Current Visit: Yes Status: Chronic (6) Uncontrolled hypertension Current Visit: Yes Status: Chronic (7) Obesity Current Visit: Yes Status: Chronic (8) Medical non-compliance Current Visit: Yes Status: Chronic Subjective Date of service: 04/10/20 Principal diagnosis: AFlutter RVR; HFrEF Interval history: Pt resting in bedside chair upon exam. S/p BLE wound debridement today - pt tolerated well. He states pain is much more manageable. Pt denies any cardiac complaints. Tele reviewed - AFlutter 70s w/no acute events noted overnight. Objective Last Vital Signs Temp 97.6 F 04/10/20 12:00 Pulse 82 04/10/20 12:00 Resp 18 04/10/20 12:00 BP 149/110 04/10/20 12:00 Pulse Ox 100 04/10/20 11:37 - Physical Examination General: No Apparent Distress HEENT: Positive: EOMI, Normocephaly, Mucus Membranes Moist Neck: Positive: neck supple, trachea midline Cardiac: Positive: Irregularly Regular, S1/S2 Lungs: Positive: clear to auscultation Neuro: Positive: Grossly Intact Abdomen: Positive: Soft, Active Bowel Sounds. Negative: Tender Skin: Positive: Other (BLE wounds - dressings in place). Negative: Rash Musculoskeletal: other (BLE wounds) Extremities: Present: upper extr. pulses, lower extr. pulses, +2 Edema (BLE) - Labs and Meds CBC 04/10/20 Range/Units 05:34 WBC 11.3 H (4.5-11.0) K/mm3 RBC 3.64 L (3.65-5.03) M/mm3 Hgb 10.4 L (11.8-15.2) gm/dl Hct 32.3 L (35.5-45.6) % Plt Count 386 (140-440) K/mm3 Comprehensive Metabolic Panel 04/10/20 Range/Units 05:34 Sodium 138 (137-145) mmol/L Potassium 4.0 (3.6-5.0) mmol/L Chloride 98.9 (98-107) mmol/L Carbon Dioxide 26 (22-30) mmol/L BUN 22 H (9-20) mg/dL Creatinine 1.1 (0.8-1.3) mg/dL Glucose 183 H (75-100) mg/dL Calcium 8.7 (8.4-10.2) mg/dL - Imaging and Cardiology EKG: report reviewed, image reviewed Echo: report reviewed (04/07/2020 - LV mildly dilated; mod concentric LVH; EF 20-25%; RV mildly dilated; RA mod dilated; mild MR) - Telemetry EKG Rhythm: Atrial Flutter - EKG Supraventricular dysrhythmia: atrial flutter
[2020-04-10] MEDS: LISINOPRIL 10 MG TAB PO SCH (17:49)
[2020-04-11] MEDS: MORPHINE 2 MG/1 ML INJ IV PRN ×2 (04:12→09:28)
[2020-04-11] MEDS: FUROSEMIDE 40 MG/4 ML INJ IV SCH (05:49)
[2020-04-11] MEDS: GABAPENTIN 300 MG CAP PO SCH ×2 (05:49→14:03)
[2020-04-11] MEDS: CLINDAMYCIN 600 MG/50 mL 600 MG/50 ML BAG IV SCH ×2 (05:49→14:33)
[2020-04-11] MEDS: oxyCODONE /ACETAMINOPHEN 5-325MG TAB PO PRN ×2 (06:12→14:02)
[2020-04-11] MEDS: PANTOPRAZOLE 40 MG TAB PO SCH (07:30)
--- NOTE | 2020-04-11 08:52 | Progress Note ---
Assessment and Plan Hypertensive urgency; POA stable continue current antihypertensives, PRN labetalol, advised compliance with medications Continue to monitor blood pressure Atrial flutter with rapid ventricular rate POA Cardiology initially recommended MICHAEL cardioversion However today patient's heart rate is controlled No indication for cardioversion Continue current medical care- Metoprolol and Eliquis Acute congestive heart failure Continue IV diuretics, echocardiogram - significantly reduced LVEF 20 to 25% Will need possible ischemic eval prior to discharge-per fence installer foreman Advised on Low-sodium diet, fluid restriction Chronic lower extremity wound; continue Clindamycin, wound care consult S/P surgical debridement Wound care surgeon consult History of peripheral vascular disease; Continue Aspirin and statin Duplex scan scan bilateral lower leg artery- No evidence of LL peripheral artery disease Bilateral leg US-no evidence of DVT Obesity; BMI 38.3 Discussed lifstyle modification Weight management-healthy diet Noncompliance; Advised on importance of medications compliance and follow-up appointments patient voiced understanding. He said he was non compliance wiht his medicine due to financial difficulty. Subjective Date of service: 04/11/20 Principal diagnosis: AFlutter RVR; HFrEF Interval history: Patient seen at bedside-fence installer foreman at bedside. bilateral leg wound with dressing s/p wound debridment. ECHO shows significantly reduced LVEF Raw Scales Operator recommends, possible ischemic eval prior to discharge Objective - Constitutional Vitals: Vital Signs - 12hr 04/10/20 04/10/20 04/10/20 21:11 21:17 21:25 Temperature Pulse Rate 83 Pulse Rate [ Apical] Pulse Rate [ Right Radial] Respiratory 18 Rate Respiratory 18 Rate [Bilateral Leg] Blood Pressure 162/106 O2 Sat by Pulse Oximetry 04/10/20 04/10/20 04/10/20 21:47 22:20 23:42 Temperature 98.0 F Pulse Rate 85 Pulse Rate [ 83 Apical] Pulse Rate [ 83 Right Radial] Respiratory 16 16 18 Rate Respiratory Rate [Bilateral Leg] Blood Pressure 164/104 O2 Sat by Pulse 100 97 Oximetry 04/10/20 04/11/20 04/11/20 23:57 00:57 03:59 Temperature 98.0 F Pulse Rate 86 Pulse Rate [ Apical] Pulse Rate [ Right Radial] Respiratory 16 18 18 Rate Respiratory Rate [Bilateral Leg] Blood Pressure 148/89 O2 Sat by Pulse 97 Oximetry 04/11/20 04/11/20 04/11/20 04:12 04:42 06:12 Temperature Pulse Rate Pulse Rate [ Apical] Pulse Rate [ Right Radial] Respiratory 18 18 18 Rate Respiratory Rate [Bilateral Leg] Blood Pressure O2 Sat by Pulse Oximetry General appearance: Present: no acute distress, obese - EENT Eyes: PERRL, EOM intact ENT: hearing intact, clear oral mucosa Ears: bilateral: normal - Neck Neck: supple, normal ROM - Respiratory Respiratory effort: normal Respiratory: bilateral: CTA - Breasts Breasts: normal - Cardiovascular Heart rate: 86 Rhythm: regular Heart Sounds: Present: S1 & S2. Absent: gallop, rub Extremities: Full ROM, abnormal (bilateral leg edema and ulcer) - Gastrointestinal General gastrointestinal: Present: soft, non-tender, non-distended, normal bowel sounds - Genitourinary Male genitourinary: normal - Integumentary Integumentary: clear, warm, dry - Musculoskeletal Musculoskeletal: 1, strength equal bilaterally - Neurologic Neurologic: moves all extremities - Psychiatric Psychiatric: memory intact, appropriate mood/affect, intact judgment & insight - Allied health notes Allied health notes reviewed: nursing - Labs CBC & Chem 7: 04/10/20 05:34 04/10/20 05:34 Labs: Abnormal lab results 04/10/20 04/10/20 04/10/20 Range/Units 11:53 16:50 20:35 POC Glucose 172 H 191 H 184 H (70-105) 04/11/20 Range/Units 08:31 POC Glucose 168 H (70-105) HEART Score - HEART Score Troponin: Troponin T < 0.010 ng/mL (0.00-0.029) 04/07/20 15:09
[2020-04-11 09:27] VITALS: BP 135/75
[2020-04-11] MEDS: AMIODARONE 200 MG TAB PO SCH (09:27)
[2020-04-11] MEDS: ASPIRIN 81 MG TAB CHEW PO SCH (09:27)
[2020-04-11] MEDS: LISINOPRIL 10 MG TAB PO SCH (09:27)
[2020-04-11] MEDS: METOPROLOL TARTRATE 50 MG TAB PO SCH (09:27)
[2020-04-11] MEDS: APIXABAN 5 MG TAB PO SCH (09:28)
[2020-04-11] MEDS: SODIUM HYPOCHLORITE, DAKIN'S 1/2 STRENGTH (0.25%) 473 ML TOPICAL SOLN TP SCH (09:30)
--- NOTE | 2020-04-11 12:51 | Discharge Summary ---
Providers - Providers Date of Admission: 04/07/20 10:09 Date of discharge: 04/11/20 Attending physician: SHERRIE PENDLETON MD 04/07/20 12:21 Consult to Wound/ET Nurse [CONS] Routine Reason For Exam: wound eval 04/07/20 13:50 Consult to Physician [CONS] Routine Comment: Consulting Provider: NATIVIDAD ZAMUDIO Physician Instructions: Reason For Exam: A. fib/flutter, history of CHF, CAD 04/08/20 16:17 Consult to Physician [CONS] Routine Comment: Consulting Provider: ОЛЕГ MUNSON Physician Instructions: Reason For Exam: Evaluate right legt ulcer for debridement 04/09/20 15:57 Consult to Physician [CONS] Routine Comment: Consulting Provider: LESLIE PAUL Physician Instructions: Reason For Exam: bilateral non healing ulcers of lower ext Primary care physician: STATION MECHANIC HELPER Hospitalization Condition: Stable Hospital course: 64-year-old male patient with significant past medical history of hypertension, CHF, A. fib, peripheral vascular disease, noncompliant with medications due to social reasons, presented to the emergency room with worsening shortness of breath and worsening leg edema and reduced effort tolerance and shortness of breath on exertion. Patient is gives history of debridement and May 2019, and patient reports that he does his own dressing at home as needed In the ER patient is noted to have atrial flutter with rapid ventricular rate, slightly improved with metoprolol. Patient has not taken medications for many months. Assessment and Plan Hypertensive urgency; POA stable Started on antihypertensives, PRN labetalol, advised compliance with medications Atrial flutter with rapid ventricular rate POA Cardiology initially recommended MICHAEL cardioversion However today patient's heart rate is controlled No indication for cardioversion D/c on Metoprolol and Eliquis Acute congestive heart failure-stable patient denies chest pain, shortness of breath and n/v at the time of assessment Started on IV diuretics, echocardiogram -shows significantly reduced LVEF 20 to 25% call centre supervisor recommended ischemic work up before discharge-patient refused -he said he wants to go home and follow up with his own call centre supervisor Advised on Low-sodium diet, fluid restriction Chronic lower extremity wound; Discharged on Clindamycin for 7 days S/P surgical debridement patient advised to follow up with [facility]wound clinic History of peripheral vascular disease; Aspirin and statin Duplex scan scan bilateral lower leg artery- No evidence of LL peripheral artery disease Bilateral leg US-no evidence of DVT Obesity; BMI 38.3 Discussed lifstyle modification Weight management-healthy diet Noncompliance; Advised on importance of medications compliance and follow-up appointments patient voiced understanding. He said he was non compliance wiht his medicine due to financial difficulty. Patient seen at bedside-He denies chest pain and shortness of breath. Patient said he wants to go home. patient cancelled to stay for possible cardiar work up by call centre supervisor-patient still said he wants to go and f/u with his doctor. Discussed with the attending Dr Pendleton-patient is discharged. Disposition: DC-01 TO HOME OR SELFCARE Core Measure Documentation - Palliative Care Palliative Care/ Comfort Measures: Not Applicable - Core Measures Any of the following diagnoses?: heart failure - Heart Failure Discharge Requirements RONEL/ARB for LVSD if EF <40%: Yes Beta otilia at discharge: Yes Exam - Constitutional Vitals: Temp Pulse Resp BP Pulse Ox 98.0 F 69 18 135/75 97 04/11/20 03:59 04/11/20 09:27 04/11/20 10:00 04/11/20 09:27 04/11/20 03:59 General appearance: Present: obese - EENT Eyes: Present: PERRL ENT: hearing intact, clear oral mucosa - Neck Neck: Present: supple, normal ROM - Respiratory Respiratory effort: normal Respiratory: bilateral: CTA - Cardiovascular Heart Sounds: Present: S1 & S2. Absent: rub, click - Extremities Extremities: pulses symmetrical, No edema Peripheral Pulses: within normal limits - Abdominal General gastrointestinal: Present: soft, non-tender, non-distended, normal bowel sounds Male genitourinary: Present: normal - Integumentary Integumentary: Present: clear, warm, dry, erythema (bilateral leg wound. S/P debridment) - Musculoskeletal Musculoskeletal: strength equal bilaterally, generalized weakness (noncompliance) - Psychiatric Psychiatric: appropriate mood/affect, intact judgment & insight - Neurologic Neurologic: CNII-XII intact, moves all extremities - Allied Health Allied health notes reviewed: nursing Plan Activity: fall precautions Weight Bearing Status: Weight Bear as Tolerated Diet: low fat, low cholesterol, low salt, low carbohydrate Wound: change dressing, per wound nurse instructions Special Instructions: restrict fluid intake to, smoking cessation Follow up with: PRIMARY CARE, [Primary Care Provider] - 3-5 Days
[2020-04-11] MEDS ORDERED: CLINDAMYCIN 150 MG CAP PO SCH (14:00)
--- NOTE | 2020-04-11 20:07 | Progress Note ---
Assessment and Plan Pt refuses ischemic eval at this time. He states he wants to find a primary Dandy Operator close to his home and will follow-up accordingly for further workup. Continue present cardiac regimen. Currently stable cardiac status. Pt may be discharged from a Cardiology perspective. Follow-up for ischemic workup as above. Pt seen in conjunction with Dr. Kennedy, who agrees with the assessment and plan of care. - Patient Problems (1) Acute HFrEF (heart failure with reduced ejection fraction) Status: Acute (2) Cardiomyopathy Status: Acute (3) Atrial flutter Status: Acute Plan to address problem: on Eliquis (4) Wound of lower extremity Status: Acute (5) PVD (peripheral vascular disease) Status: Chronic (6) Uncontrolled hypertension Status: Chronic (7) Obesity Status: Chronic (8) Medical non-compliance Status: Chronic Subjective Date of service: 04/11/20 Principal diagnosis: AFlutter RVR; HFrEF Interval history: Pt resting in bedside chair upon exam. S/p BLE wound debridement yesterday - pt tolerated well. Pt denies any cardiac complaints. Tele reviewed - AFlutter 70- 80s w/no acute events noted overnight. Objective Last Vital Signs Temp 98.0 F 04/11/20 03:59 Pulse 68 04/11/20 12:00 Resp 18 04/11/20 10:00 BP 135/75 04/11/20 09:27 Pulse Ox 100 04/11/20 10:00 - Physical Examination General: No Apparent Distress HEENT: Positive: EOMI, Normocephaly, Mucus Membranes Moist Neck: Positive: neck supple, trachea midline. Negative: JVD/HJR Cardiac: Positive: Irregularly Regular, S1/S2 Lungs: Positive: clear to auscultation Neuro: Positive: Grossly Intact Abdomen: Positive: Soft, Active Bowel Sounds. Negative: Tender Skin: Positive: Other (BLE wounds - dressings in place). Negative: Rash Musculoskeletal: other (BLE wounds) Extremities: Present: upper extr. pulses, lower extr. pulses, +1 Edema (BLE) - Imaging and Cardiology EKG: report reviewed, image reviewed Echo: report reviewed (04/07/2020 - LV mildly dilated; mod concentric LVH; EF 20-25%; RV mildly dilated; RA mod dilated; mild MR) - Telemetry EKG Rhythm: Atrial Flutter - EKG Supraventricular dysrhythmia: atrial flutter
== END 2020-04-11 14:44 | disposition home or self-care (01) | DRG 264 ==
LOC: ED 07:18 → OBSVTOIN 10:09 → 4A 10:09
PROVIDERS: ADMIT Internal Medicine; ATTEND Internal Medicine
PROC: 0JBP0ZZ Excision of Left Lower Leg Subcutaneous Tissue and Fascia, Open Approach (ICD-10-PCS; principal; 2020-04-10)
PROC: 0JBN0ZZ Excision of Right Lower Leg Subcutaneous Tissue and Fascia, Open Approach (ICD-10-PCS; 2020-04-10)
PROC: 0JBQ0ZZ Excision of Right Foot Subcutaneous Tissue and Fascia, Open Approach (ICD-10-PCS; 2020-04-10)
DX: I16.0 Hypertensive urgency (principal); I50.21 Acute systolic (congestive) heart failure; I16.1 Hypertensive emergency; I48.92 Unspecified atrial flutter; I42.9 Cardiomyopathy, unspecified; L97.319 Non-pressure chronic ulcer of right ankle with unspecified severity; L88 Pyoderma gangrenosum; S81.809A Unspecified open wound, unspecified lower leg, initial encounter; I11.0 Hypertensive heart disease with heart failure; I73.9 Peripheral vascular disease, unspecified; I48.91 Unspecified atrial fibrillation; D64.9 Anemia, unspecified; E66.01 Morbid (severe) obesity due to excess calories; X58.XXXA Exposure to other specified factors, initial encounter; Y93.89 Activity, other specified; Z91.14 Patient's other noncompliance with medication regimen; Y92.89 Other specified places as the place of occurrence of the external cause; Y99.8 Other external cause status; Z20.828 Contact with and (suspected) exposure to other viral communicable diseases; Z68.38 Body mass index [BMI] 38.0-38.9, adult
CPT/HCPCS: 36415; 71045; 80048; 82962; 83880; 84436; 84443; 84484; 85025; 85027; 93005; 93306; 93925; 93970; G0378; A6260; A9270-GY; J0282; J1170; J1940; J2270; J2543; J3370; J7040; J7060; U0003-CS

== ENCOUNTER 2020-04-22 22:35 | Inpatient (IN) | payer OTHER, SELFPAY ==
[2020-04-22 23:39] LABS: Basophils # (Auto) 0.1 K/mm3 (0.0-0.1); Basophils % (Auto) 1.1 % (0.0-1.8); Eosinophils # (Auto) 0.2 K/mm3 (0.0-0.4); Eosinophils % (Auto) 1.6 % (0.0-4.3); Hematocrit 29.2 % (35.5-45.6); Hemoglobin 10.1 gm/dl (11.8-15.2); Lymphocytes # (Auto) 1.7 K/mm3 (1.2-5.4); Mean Corpuscular HGB Conc 35 % (32-34); Mean Corpuscular Volume 86 fl (84-94); Monocytes # (Auto) 0.8 K/mm3 (0.0-0.8); Monocytes % (Auto) 7.1 % (0.0-7.3); Platelet Count 357 K/mm3 (140-440); Red Blood Count 3.39 M/mm3 (3.65-5.03); Red Cell Distribution Width 15.4 % (13.2-15.2)
[2020-04-22 23:56] LABS: BUN/Creatinine Ratio 12; Blood Urea Nitrogen 14 mg/dL (9-20); Hemolysis Index 0
--- NOTE | 2020-04-22 23:57 | XRay Report ---
CHEST 1 VIEW 11:30 PM INDICATION / CLINICAL INFORMATION: Chest Pain. Foot ulcer. COMPARISON: 04/07/20. FINDINGS: SUPPORT DEVICES: None. HEART / MEDIASTINUM: Mild to moderate cardiomegaly is stable. Pulmonary vasculature is normal. The ao rta is normal in caliber. LUNGS / PLEURA: No significant pulmonary or pleural abnormality. No pneumothorax. ADDITIONAL FINDINGS: No significant additional findings. IMPRESSION: No acute abnormality or significant change. Signer Name: Gavino Garcia MD Signed: 04/22/2020 11:53 PM Workstation Name: [id number]
--- NOTE | 2020-04-23 01:33 | Emergency Department Report ---
ED Chest Pain HPI - General Chief Complaint: Chest Pain Stated Complaint: CHEST PAIN PUI?: No Time Seen by Provider: 04/23/20 01:20 Source: patient Mode of arrival: Ambulatory Limitations: No Limitations - History of Present Illness Initial Comments: Patient is a 64-year-old male that presents emergency room with complaints chest pain shortness of breath. Patient states that his chest pain shortness of breath started yesterday around 10 AM. Patient states his symptoms worsen. Patient states he developed diaphoresis. Patient states the chest pain is a 10 out of 10. Patient states his blood pressure has been out of control. Patient states that his chest pain and shortness of breath are better with rest and worse with exertion. Patient states he has a past medical history of hypertension, PA, A. fib. Patient denies recent travel. Patient denies recent international travel. Patient denies exposure to the novel coronavirus. Patient denies sick contacts. Patient denies fever and chills. Patient denies cough. Patient denies diarrhea. Patient denies coming in contact with anybody with symptoms of the novel coronavirus. MD Complaint: chest pain -: Sudden Onset: during rest Pain Location: substernal, left chest Pain Radiation: none Severity: severe Severity scale (0 -10): 10 Quality: sharp Consistency: constant Improves With: rest Worsens With: exertion re: diaphoresis, dyspnea. denies: nausea, vomting, sense of impending doom Other Symptoms: denies: cough, fever, syncope, rash, acid taste in mouth, leg swelling, palpitations, burping Treatments Prior to Arrival: aspirin Aspirin use within the Past 7 Days: (1) Yes - Related Data On Oral Contraceptives: No Home Medications Medication Instructions Recorded Confirmed Last Taken Metoprolol [Lopressor TAB] 50 mg PO BID 04/23/20 04/23/20 Unknown Previous Rx's Medication Instructions Recorded Last Taken Type Amiodarone [Cordarone 200 MG TAB] 200 mg PO BID 30 Days #60 tablet 04/11/20 Unknown Rx AtorvaSTATin [Lipitor] 40 mg PO QHS 30 Days #30 tablet 04/11/20 Unknown Rx Furosemide [Lasix TAB] 40 mg PO QDAY 30 Days #30 04/11/20 Unknown Rx Pantoprazole [Protonix TAB] 40 mg PO QDAC 30 Days #30 tablet 04/11/20 Unknown Rx lisinopriL [Zestril TAB] 10 mg PO QDAY 30 Days #30 tablet 04/11/20 Unknown Rx Allergies Allergy/AdvReac Type Severity Reaction Status Date / Time No Known Allergies Allergy Unverified 10/18/17 01:33 Heart Score - HEART Score History: Moderately suspicious EKG: Non-specific Age: 45-65 Risk factors: > 3 risk factors or hx of atherosclerotic disease Troponin: < normal limit HEART Score: 5 ED Review of Systems ROS: Stated complaint: CHEST PAIN Other details as noted in HPI Constitutional: see HPI, diaphoresis. denies: chills, fever Eyes: denies: eye pain, eye discharge, vision change ENT: denies: ear pain, throat pain Respiratory: shortness of breath, SOB with exertion, SOB at rest. denies: cough, wheezing Cardiovascular: chest pain, dyspnea on exertion. denies: palpitations Endocrine: no symptoms reported Gastrointestinal: denies: abdominal pain, nausea, diarrhea Genitourinary: denies: urgency, dysuria Musculoskeletal: denies: back pain, joint swelling, arthralgia Skin: denies: rash, lesions Neurological: denies: headache, weakness, paresthesias Psychiatric: denies: anxiety, depression Hematological/Lymphatic: denies: easy bleeding, easy bruising ED Past Medical Hx - Past Medical History Previous Medical History?: Yes Hx Hypertension: Yes Hx Heart Attack/AMI: Yes Additional medical history: A fib. Ulcers on legs - Surgical History Past Surgical History?: Yes Additional Surgical History: Hernia repair - Family History Family history: no significant - Social History Smoking Status: Never Smoker Substance Use Type: None - Medications Home Medications: Home Medications Medication Instructions Recorded Confirmed Last Taken Type Amiodarone [Cordarone 200 MG TAB] 200 mg PO BID 30 Days #60 tablet 04/11/20 04/23/20 Unknown Rx AtorvaSTATin [Lipitor] 40 mg PO QHS 30 Days #30 tablet 04/11/20 04/23/20 Unknown Rx Furosemide [Lasix TAB] 40 mg PO QDAY 30 Days #30 04/11/20 04/23/20 Unknown Rx Pantoprazole [Protonix TAB] 40 mg PO QDAC 30 Days #30 tablet 04/11/20 04/23/20 Unknown Rx lisinopriL [Zestril TAB] 10 mg PO QDAY 30 Days #30 tablet 04/11/20 04/23/20 Unknown Rx Metoprolol [Lopressor TAB] 50 mg PO BID 04/23/20 04/23/20 Unknown History ED Physical Exam - General Limitations: No Limitations General appearance: alert, in no apparent distress - Head Head exam: Present: atraumatic, normocephalic - Eye Eye exam: Present: normal appearance - ENT ENT exam: Present: mucous membranes moist - Neck Neck exam: Present: normal inspection - Respiratory Respiratory exam: Present: normal lung sounds bilaterally. Absent: respiratory distress, chest wall tenderness - Cardiovascular Cardiovascular Exam: Present: regular rate, normal rhythm. Absent: systolic murmur, diastolic murmur, rubs, gallop - GI/Abdominal GI/Abdominal exam: Present: soft, normal bowel sounds - Rectal Rectal exam: Present: deferred - Extremities Exam Extremities exam: Present: normal inspection - Neurological Exam Neurological exam: Present: alert, oriented X3 - Psychiatric Psychiatric exam: Present: normal affect, normal mood - Skin Skin exam: Present: warm, dry, normal color, other (Lower extremity ulcers and swelling.). Absent: rash ED Course Vital Signs 04/22/20 04/22/20 04/23/20 22:40 22:58 02:12 Temperature 98.6 F Pulse Rate 110 H 95 H Respiratory 20 18 Rate Blood Pressure 228/152 194/136 Blood Pressure [Right] O2 Sat by Pulse 98 98 Oximetry 04/23/20 04/23/20 04/23/20 02:51 03:37 04:26 Temperature Pulse Rate 92 H 102 H Respiratory 24 19 22 Rate Blood Pressure Blood Pressure 184/128 164/105 [Right] O2 Sat by Pulse 98 96 Oximetry - Reevaluation(s) Reevaluation #1: Patient complains of severe chest pain. Morphine will be ordered. I discussed all results with patient. I discussed plan of care with patient. Patient agrees with plan of care and admission. Patient to be admitted to the hospitalist service. 04/23/20 01:39 Reevaluation #2: Patient placed on campus monitor. Patient will be given morphine and Lopres sor. Patient will be placed on oxygen. 04/23/20 01:50 Reevaluation #3: Patient's blood pressure only minimally decreased with Lopressor. Patient's current blood pressure 190/130. Patient was given 100 mg of hydralazine. Patient's heart rate improved. Patient's chest pain improved with morphine. The hospitalist will be updated with this information. 04/23/20 02:28 - Consultations Consultation #1: Hospitalist consulted for admission. Hospitalist to admit patient. 04/23/20 01:39 WALDEMAR score - Waldemar Score Age > 65: (1) Yes Aspirin use within the Past 7 Days: (1) Yes 3 or more CAD Risk Factors: (1) Yes 2 or more Angina events in past 24 hrs: (1) Yes Known CAD with more than 50% Stenosis: (0) No Elevated Cardiac Markers: (0) No ST Deviation Greater than 0.5mm: (0) No WALDEMAR Score: 4 ED Medical Decision Making - Lab Data Result diagrams: 04/22/20 23:10 04/22/20 23:10 - EKG Data -: EKG Interpreted by Me EKG shows normal: axis, intervals, QRS complexes, ST-T waves - EKG Data Interpretation: other (Atrial flutter) - Radiology Data Radiology results: report reviewed, image reviewed interpreted by me: Chest x-ray: No pneumonia, no pneumothorax, no foreign body, no osseous findings, no acute findings CHEST 1 VIEW 11:30 PM INDICATION / CLINICAL INFORMATION: Chest Pain. Foot ulcer. COMPARISON: 04/07/20. FINDINGS: SUPPORT DEVICES: None. HEART / MEDIASTINUM: Mild to moderate cardiomegaly is stable. Pulmonary vasculature is normal. The aorta is normal in caliber. LUNGS / PLEURA: No significant pulmonary or pleural abnormality. No pneumothorax. ADDITIONAL FINDINGS: No significant additional findings. IMPRESSION: No acute abnormality or significant change. - Medical Decision Making Patient is a 64-year-old male who presents emergency room with complaints of chest pain and shortness of breath. Patient also of diaphoresis. Patient found to have extremely elevated blood pressure. Patient given Lopressor for elevated blood pressure and morphine for chest pain. Patient's chest pain improved with the morphine. Patient's blood pressure only slightly improved with the Lopressor and then the patient was given hydralazine 100 mg p.o. Patient given aspirin in triage. Patient's labs were essentially unremarkable. Patient's initial troponin negative. Patient's EKG shows no ST changes. Patient's chest x-ray was negative for acute findings. Patient has multiple cardiac risk factors. Patient admitted to the hospital service for further evaluation treatment and rule out ACS. Differential diagnosis includes but not limited to chest pain, ACS, shortness of breath, pneumonia, hypertensive emergency, hypertensive urgency, electrolyte imbalance. - Differential Diagnosis Chest pain, shortness of breath Critical Care Time: Yes Critical care time in (mins) excluding proc time.: 35 Critical care attestation.: If time is entered above; I have spent that time in minutes in the direct care of this critically ill patient, excluding procedure time. Critical Care Time: 35 minutes ED Disposition Clinical Impression: Hypertensive urgency, SOB (shortness of breath) Chest pain Qualifiers: Chest pain type: unspecified Qualified Code(s): R07.9 - Chest pain, unspecified Atrial flutter Qualifiers: Atrial flutter type: typical Qualified Code(s): I48.3 - Typical atrial flutter Disposition: -09 OP ADMIT IP TO THIS HOSP Is pt being admited?: Yes Does the pt Need Aspirin: No Condition: Critical Time of Disposition: 02:29
[2020-04-23] MEDS ORDERED: METOPROLOL TARTRATE 5 MG/5 ML INJ IV ONE (01:39)
[2020-04-23] MEDS ORDERED: MORPHINE 2 MG/1 ML INJ IV ONE (01:40)
[2020-04-23] MEDS ORDERED: ASPIRIN 325 MG TAB ONE (02:10)
[2020-04-23] MEDS: ASPIRIN 325 MG TAB PO ONE ×2 (02:12→07:21)
[2020-04-23] MEDS ORDERED: hydrALAZINE 100 MG TAB ONE (02:25)
[2020-04-23] MEDS ORDERED: hydrALAZINE 100 MG TAB PO ONE (02:25)
[2020-04-23] MEDS ORDERED: NITROGLYCERIN 0.4 MG TAB SUBL SL PRN (03:19)
[2020-04-23] MEDS ORDERED: ONDANSETRON 4 MG/2 ML INJ IV PRN (03:19)
[2020-04-23] MEDS ORDERED: MAGNESIUM HYDROXIDE (MOM) ORAL LIQD UDC PO PRN (03:19)
[2020-04-23] MEDS ORDERED: ACETAMINOPHEN 325 MG TAB PO PRN (03:19)
--- NOTE | 2020-04-23 03:32 | History and Physical Report ---
History of Present Illness Date of examination: 04/23/20 Date of admission: 04/23/20 02:29 Chief complaint: chest pain History of present illness: 64-year-old male with significant past medical history of coronary artery disease, atrial fibrillation, hypertension, chronic venous status ulcers in legs presenting to the emergency room today complaining of chest pain which started about 24 hours ago. Chest pain is said to have been intermittent and has been ongoing since yesterday. He has had associated shortness of breath and diaphoresis. On a scale of 10 pain was about 10/10 in severity and is made worse on exertion and feels better upon resting. Patient denies any fever or chills, no nausea vomiting, no headache or dizziness, denies any abdominal pain. Patient denies any sick contacts and no recent travel, denies any contact with anyone with COVID-19. Patient states he was just recently discharged from the hospital. He has had chronic leg ulcers for which he is being followed by the wound care team/General surgery.. Upon arrival in the emergency room patient was found to be tachycardic and also had elevated blood pressure. Work-up so far in the emergency room has been negative. Patient is being admitted for evaluation of his chest pain. Past History Past Medical History: atrial fib, CAD, hypertension, hyperlipidemia, other (leg Ulcers) Past Surgical History: No surgical history Social history: no significant social history Family history: no significant family history Medications and Allergies Allergies Allergy/AdvReac Type Severity Reaction Status Date / Time No Known Allergies Allergy Unverified 10/18/17 01:33 Home Medications Medication Instructions Recorded Confirmed Last Taken Type Amiodarone [Cordarone 200 MG TAB] 200 mg PO BID 30 Days #60 tablet 04/11/20 04/23/20 Unknown Rx AtorvaSTATin [Lipitor] 40 mg PO QHS 30 Days #30 tablet 04/11/20 04/23/20 Unknown Rx Furosemide [Lasix TAB] 40 mg PO QDAY 30 Days #30 04/11/20 04/23/20 Unknown Rx Pantoprazole [Protonix TAB] 40 mg PO QDAC 30 Days #30 tablet 04/11/20 04/23/20 Unknown Rx lisinopriL [Zestril TAB] 10 mg PO QDAY 30 Days #30 tablet 04/11/20 04/23/20 Unknown Rx Gabapentin 300 mg PO TID 1004/23/20 04/20/20 22:00 History 300 mg Metoprolol [Lopressor TAB] 50 mg PO BID 04/23/20 04/23/20 Unknown History Active Meds: Active Medications Acetaminophen (Tylenol) 650 mg PO Q6H PRN PRN Reason: Pain, Mild (1-3) Aspirin (Ecotrin) 325 mg PO QDAY [facility] Heparin Sodium (Porcine) (Heparin) 5,000 unit SUB-Q Q8HR [facility] Hydralazine HCl (Apresoline) 10 mg IV Q6HR PRN PRN Reason: Blood Pressure Magnesium Hydroxide (Milk Of Magnesia) 30 ml PO Q4H PRN PRN Reason: Constipation Morphine Sulfate (Morphine) 2 mg IV Q5MIN PRN PRN Reason: Chest Pain Nitroglycerin (Nitrostat) 0.4 mg SL Q5M PRN PRN Reason: Chest Pain Ondansetron HCl (Zofran) 4 mg IV Q8H PRN PRN Reason: Nausea And Vomiting Sodium Chloride (Sodium Chloride Flush Syringe 10 Ml) 10 ml IV PRN PRN PRN Reason: LINE FLUSH Sodium Chloride (Sodium Chloride Flush Syringe 10 Ml) 10 ml IV BID [facility] Review of Systems Constitutional: sweats, no fever, no chills Ears, nose, mouth and throat: no nasal congestion, no sore throat Cardiovascular: chest pain, palpitations Respiratory: shortness of breath, no cough, no wheezing Gastrointestinal: no abdominal pain, no nausea, no vomiting, no diarrhea Genitourinary Male: no dysuria, no hematuria, no flank pain Musculoskeletal: no neck pain, no low back pain Integumentary: no rash, no pruritis Neurological: no headaches, no confusion Psychiatric: no anxiety, no depression Exam - Constitutional Vitals: Temp Pulse Resp BP Pulse Ox 98.6 F 92 H 24 184/128 98 04/22/20 22:40 04/23/20 02:51 04/23/20 02:51 04/23/20 02:51 04/23/20 02:51 General appearance: Present: no acute distress, well-nourished, obese - EENT Eyes: Present: PERRL, EOM intact. Absent: scleral icterus ENT: hearing intact, clear oral mucosa, dentition normal - Neck Neck: Present: supple, normal ROM - Respiratory Respiratory effort: normal Respiratory: bilateral: CTA - Cardiovascular Rhythm: regular Heart Sounds: Present: S1 & S2. Absent: gallop, systolic murmur, diastolic murmur, rub - Extremities Extremities: no ischemia, pulses intact, pulses symmetrical, No edema, Full ROM Extremity abnormal: ulceration (Bilateral lower extremity ulcers with dressing in place.) Peripheral Pulses: within normal limits - Abdominal General gastrointestinal: Present: soft, non-tender, non-distended, normal bowel sounds. Absent: mass - Integumentary Integumentary: Present: clear, warm, dry - Musculoskeletal Musculoskeletal: strength equal bilaterally - Psychiatric Psychiatric: appropriate mood/affect, intact judgment & insight, memory intact, cooperative - Neurologic Neurologic: CNII-XII intact, moves all extremities HEART Score - HEART Score History: Moderately suspicious EKG: Non-specific Age: 45-65 Risk factors: 1-2 risk factors Troponin: Troponin T < 0.010 ng/mL (0.00-0.029) 04/23/20 Unknown Troponin: < normal limit HEART Score: 4 Results - Labs CBC & Chem 7: 04/22/20 23:10 04/22/20 23:10 Labs: Abnormal lab results 04/22/20 04/22/20 Range/Units 23:10 23:10 RBC 3.39 L (3.65-5.03) M/mm3 Hgb 10.1 L (11.8-15.2) gm/dl Hct 29.2 L (35.5-45.6) % MCHC 35 H (32-34) % RDW 15.4 H (13.2-15.2) % Seg Neutrophils % 74.2 H (40.0-70.0) % Seg Neutrophils # 8.0 H (1.8-7.7) K/mm3 Glucose 161 H (75-100) mg/dL Assessment and Plan - Patient Problems (1) Chest pain Current Visit: Yes Status: Acute Qualifiers: Chest pain type: unspecified Qualified Code(s): R07.9 - Chest pain, unspecified Plan to address problem: We will trend serial cardiac enzymes. Patient placed on aspirin, sublingual nitroglycerin and morphine as needed for chest pain. Consult placed to cardiology for further evaluation and recommendation. (2) Hypertensive urgency Current Visit: Yes Status: Acute Plan to address problem: We will resume routine home medications and monitor vital signs closely. Patient will be placed on IV hydralazine as needed for optimal blood pressure control. (3) Wound of lower extremity Current Visit: No Status: Acute Plan to address problem: We will place consult to wound care team and possibly general surgery for follow-up on bilateral lower extremity ulcers. (4) History of atrial fibrillation Current Visit: No Status: Chronic Plan to address problem: Rate is currently controlled. We will continue routine home medications. (5) DVT prophylaxis Current Visit: Yes Status: Acute Plan to address problem: Patient placed on subcutaneous heparin. (6) Full code status Current Visit: Yes Status: Acute
[2020-04-23] MEDS: MORPHINE 2 MG/1 ML INJ IV PRN ×2 (04:26→08:43)
[2020-04-23 05:18] LABS: Basophils # (Auto) 0.1 K/mm3 (0.0-0.1); Basophils % (Auto) 0.8 % (0.0-1.8); Eosinophils # (Auto) 0.3 K/mm3 (0.0-0.4); Eosinophils % (Auto) 2.7 % (0.0-4.3); Hematocrit 31.2 % (35.5-45.6); Hemoglobin 9.9 gm/dl (11.8-15.2); Lymphocytes # (Auto) 1.8 K/mm3 (1.2-5.4); Mean Corpuscular HGB Conc 32 % (32-34); Mean Corpuscular Volume 88 fl (84-94); Monocytes # (Auto) 0.9 K/mm3 (0.0-0.8); Monocytes % (Auto) 9.6 % (0.0-7.3); Platelet Count 344 K/mm3 (140-440); Red Blood Count 3.53 M/mm3 (3.65-5.03); Red Cell Distribution Width 15.5 % (13.2-15.2)
[2020-04-23 05:39] LABS: BUN/Creatinine Ratio 13; Blood Urea Nitrogen 14 mg/dL (9-20); Calcium 8.9 mg/dL (8.4-10.2); Hemolysis Index 4
[2020-04-23 05:43] LABS: Chol/HDL Ratio 2.52 %
[2020-04-23] MEDS ORDERED: oxyCODONE /ACETAMINOPHEN 5-325MG TAB PO ONE (05:48)
[2020-04-23] MEDS: HEPARIN 5,000 UNIT/1 ML VIAL SUB-Q SCH ×2 (05:49→15:27)
[2020-04-23] MEDS: hydrALAZINE 20 MG/1 ML INJ IV PRN ×2 (07:58→22:01)
[2020-04-23] MEDS ORDERED: REGADENOSON 0.4 MG/5 ML INJ IV ONE (08:01)
--- NOTE | 2020-04-23 10:03 | Consultation ---
History of Present Illness Consult date: 04/23/20 Requesting physician: KATHLEEN CORRALES Consult reason: chest pain History of present illness: The pt is a 64-year-old male with a past medical history of hypertension, atrial fibrillation and atrial flutter, anticoagulated with Eliquis, PVD, chronic venous stasis BLE wounds s/p multiple debridements, obesity. He has been seen by our practice on recent prior hospitalization. He presented with c/o chest pain for approx 1 day prior to arrival. He describes his chest pain as an intermittent aching which is associated with shortness of breath and diaphoresis. On a scale of 10 pain was about 10/10 in severity and is made worse on exertion and feels better upon resting. Patient denies any fever or chills, no nausea vomiting, no headache or dizziness, denies any abdominal pain. Patient denies any sick contacts and no recent travel, denies any contact with anyone with COVID-19. tte done 04/07/2020 showed LV mildly dilated; mod concentric LVH; EF 20-25%; RV mildly dilated; RA mod dilated; mild MR. Pt was recommended inpatient ischemic evaluation at that time to r/o ICMP. He ultimately declined ischemic evaluation at that time because he wanted to return to [place]. Past History Past Medical History: atrial fib, heart failure, hypertension, hyperlipidemia, other (leg Ulcers) Past Surgical History: No surgical history Social history: no significant social history Family history: no significant family history Medications and Allergies Allergies Allergy/AdvReac Type Severity Reaction Status Date / Time No Known Allergies Allergy Unverified 10/18/17 01:33 Home Medications Medication Instructions Recorded Confirmed Last Taken Type Amiodarone [Cordarone 200 MG TAB] 200 mg PO BID 30 Days #60 tablet 04/11/20 04/23/20 Unknown Rx AtorvaSTATin [Lipitor] 40 mg PO QHS 30 Days #30 tablet 04/11/20 04/23/20 Unknown Rx Furosemide [Lasix TAB] 40 mg PO QDAY 30 Days #30 04/11/20 04/23/20 Unknown Rx Pantoprazole [Protonix TAB] 40 mg PO QDAC 30 Days #30 tablet 04/11/20 04/23/20 Unknown Rx lisinopriL [Zestril TAB] 10 mg PO QDAY 30 Days #30 tablet 04/11/20 04/23/20 Unknown Rx Gabapentin 300 mg PO TID 04/23/20 04/23/20 04/20/20 22:00 History 300 mg Metoprolol [Lopressor TAB] 50 mg PO BID 04/23/20 04/23/20 Unknown History Active Meds: Active Medications Acetaminophen (Tylenol) 650 mg PO Q6H PRN PRN Reason: Pain, Mild (1-3) Aspirin (Ecotrin) 325 mg PO QDAY [facility] Heparin Sodium (Porcine) (Heparin) 5,000 unit SUB-Q Q8HR [facility] Last Admin: 04/23/20 05:49 Dose: 5,000 unit Documented by: Hydralazine HCl (Apresoline) 10 mg IV Q6H PRN PRN Reason: Blood Pressure Last Admin: 04/23/20 07:58 Dose: 10 mg Documented by: Hydromorphone HCl (Dilaudid) 0.5 mg IV Q3H PRN PRN Reason: Pain , Severe (7-10) Magnesium Hydroxide (Milk Of Magnesia) 30 ml PO Q4H PRN PRN Reason: Constipation Morphine Sulfate (Morphine) 2 mg IV Q5MIN PRN PRN Reason: Chest Pain Last Admin: 04/23/20 08:43 Dose: 2 mg Documented by: Nitroglycerin (Nitrostat) 0.4 mg SL Q5M PRN PRN Reason: Chest Pain Ondansetron HCl (Zofran) 4 mg IV Q8H PRN PRN Reason: Nausea And Vomiting Oxycodone HCl (Roxicodone) 2.5 mg PO Q6H PRN PRN Reason: Pain, Moderate (4-6) Oxycodone/Acetaminophen (Percocet 5/325) 1 tab PO Q6H PRN PRN Reason: Pain, Moderate (4-6) Sodium Chloride (Sodium Chloride Flush Syringe 10 Ml) 10 ml IV PRN PRN PRN Reason: LINE FLUSH Sodium Chloride (Sodium Chloride Flush Syringe 10 Ml) 10 ml IV BID [facility] Review of Systems Constitutional: no weight loss, no weight gain, no fever, no chills, no sweats Ears, nose, mouth and throat: no ear pain, no nose pain, no sinus pressure, no sinus pain Cardiovascular: chest pain, shortness of breath, high blood pressure, no ortho pnea, no palpitations, no rapid/irregular heart beat, no edema, no syncope, no lightheadedness, no leg edema Respiratory: shortness of breath, no cough, no congestion, no wheezing, no pain on inspiration Gastrointestinal: no abdominal pain, no nausea, no vomiting, no diarrhea, no constipation, no change in bowel habits Genitourinary Male: no dysuria, no hematuria, no flank pain, no discharge, no urinary frequency, no urinary hesitancy Musculoskeletal: no neck stiffness, no neck pain, no shooting arm pain, no arm numbness/tingling, no low back pain, no shooting leg pain Integumentary: no rash, no pruritis, no redness, no sores, no wounds Neurological: no head injury, no paralysis, no weakness, no parathesias, no numbness, no tingling, no seizures, no syncope Psychiatric: no anxiety Endocrine: no cold intolerance, no heat intolerance Hematologic/Lymphatic: no easy bruising Allergic/Immunologic: no urticaria Physical Examination Vital Signs Temp Pulse Resp BP Pulse Ox 98.6 F 110 H 20 228/152 98 04/22/20 22:40 04/22/20 22:40 04/22/20 22:40 04/22/20 22:40 04/22/20 22:40 General appearance: no acute distress HEENT: Positive: PERRL, Normocephaly, Mucus Membranes Moist Neck: Positive: neck supple, trachea midline Cardiac: Positive: Reg Rate and Rhythm, S1/S2 Lungs: Positive: Decreased Breath Sounds Neuro: Positive: Grossly Intact Abdomen: Negative: Tender Skin: Negative: Rash Musculoskeletal: No Pain Extremities: Absent: edema Results 04/23/20 04:39 04/23/20 04:39 Lipids 04/23/20 Range/Units 04:39 Triglycerides 98 (2-149) mg/dL Cholesterol 91 (50-199) mg/dL HDL Cholesterol 36 L (40-59) mg/dL Cholesterol/HDL Ratio 2.52 % CBC 04/22/20 04/23/20 Range/Units 23:10 04:39 WBC 10.8 9.7 (4.5-11.0) K/mm3 RBC 3.39 L 3.53 L (3.65-5.03) M/mm3 Hgb 10.1 L 9.9 L (11.8-15.2) gm/dl Hct 29.2 L 31.2 L (35.5-45.6) % Plt Count 357 344 (140-440) K/mm3 Lymph # (Auto) 1.7 1.8 (1.2-5.4) K/mm3 [place] # (Auto) 0.8 0.9 H (0.0-0.8) K/mm3 Eos # (Auto) 0.2 0.3 (0.0-0.4) K/mm3 Baso # (Auto) 0.1 0.1 (0.0-0.1) K/mm3 Comprehensive Metabolic Panel 04/22/20 04/23/20 Range/Units 23:10 04:39 Sodium 140 139 (137-145) mmol/L Potassium 3.8 3.5 L (3.6-5.0) mmol/L Chloride 101.1 101.2 (98-107) mmol/L Carbon Dioxide 25 28 (22-30) mmol/L BUN 14 14 (9-20) mg/dL Creatinine 1.2 1.1 (0.8-1.3) mg/dL Glucose 161 H 116 H (75-100) mg/dL Calcium 9.0 8.9 (8.4-10.2) mg/dL - Imaging and Cardiology Echo: report reviewed ( 04/07/2020 showed LV mildly dilated; mod concentric LVH; EF 20-25%; RV mildly dilated; RA mod dilated; mild MR.) EKG: report reviewed, image reviewed EKG interpretations - Telemetry EKG Rhythm: Atrial Flutter - EKG Supraventricular dysrhythmia: atrial fibrillation Assessment and Plan AMI r/o. Agree with present cardiac management. Proceed with lexiscan MPI stress test. Await findings. The patient has been seen in conjunction with Dr. Kennedy who agrees with the assessment and plan of care. - Patient Problems (1) Chest pain Current Visit: Yes Status: Acute Qualifiers: Chest pain type: unspecified Qualified Code(s): R07.9 - Chest pain, unspecified (2) Atrial fibrillation and flutter Current Visit: Yes Status: Chronic (3) Cardiomyopathy Current Visit: Yes Status: Chronic (4) HTN (hypertension) Current Visit: Yes Status: Chronic (5) Anemia Current Visit: Yes Status: Acute (6) PVD (peripheral vascular disease) Current Visit: Yes Status: Chronic (7) Chronic venous hypertension (idiopathic) with ulcer of bilateral lower extremity Current Visit: Yes Status: Chronic
[2020-04-23] MEDS ORDERED: FLU VACC QUAD 2020-2021 (6 months +)/PF 60 0.5 ML SYRINGE IM ONE (12:00)
[2020-04-23] MEDS: METOPROLOL TARTRATE 50 MG TAB PO SCH ×2 (12:16→22:02)
[2020-04-23] MEDS: oxyCODONE 5 MG TAB PO PRN ×2 (12:17→18:15)
[2020-04-23] MEDS: oxyCODONE /ACETAMINOPHEN 5-325MG TAB PO PRN ×2 (12:17→18:15)
--- NOTE | 2020-04-23 14:57 | Event Note ---
Date: 04/23/20 S/p lexiscan MPI stress test today which was abnormal, showed both fixed and reversible defects, EF ~20%. Coronary angiography recommended for definitive diagnosis. Indications, potential risks and benefits of LHC reviewed with pt and he is agreeable to proceed with LHC on 04/26/2020. Convert home Eliquis to heparin gtt for AFib/AFlutter in the interim. Plan to resume Eliquis following LHC. Cont GDMT and volume optimization over the weekend. Belen SILVA NP / DR. BILLINGSLEY
[2020-04-23] MEDS ORDERED: SODIUM CHLORIDE 0.9% 500 ML 500 ML IV SCH (15:00)
[2020-04-23] MEDS: HYDROmorphone 1 MG/1 ML INJ IV PRN ×2 (15:21→20:01)
[2020-04-23] MEDS ORDERED: HEPARIN 10,000 UNITS/10 ML VIAL IV ONE (16:00)
--- NOTE | 2020-04-23 19:11 | History and Physical Report ---
History of Present Illness Date of examination: 04/23/20 Date of admission: 04/23/20 02:29 Past History Past Medical History: atrial fib, heart failure, hypertension, hyperlipidemia, other (leg Ulcers) Past Surgical History: No surgical history Social history: no significant social history Family history: no significant family history Medications and Allergies Allergies Allergy/AdvReac Type Severity Reaction Status Date / Time No Known Allergies Allergy Unverified 10/18/17 01:33 Home Medications Medication Instructions Recorded Confirmed Last Taken Type Amiodarone [Cordarone 200 MG TAB] 200 mg PO BID 30 Days #60 tablet 04/11/20 04/23/20 Unknown Rx AtorvaSTATin [Lipitor] 40 mg PO QHS 30 Days #30 tablet 04/11/20 04/23/20 Unknown Rx Furosemide [Lasix TAB] 40 mg PO QDAY 30 Days #30 04/11/20 04/23/20 Unknown Rx Pantoprazole [Protonix TAB] 40 mg PO QDAC 30 Days #30 tablet 04/11/20 04/23/20 Unknown Rx lisinopriL [Zestril TAB] 10 mg PO QDAY 30 Days #30 tablet 04/11/20 04/23/20 Unknown Rx Gabapentin 300 mg PO TID 04/23/20 04/23/20 04/20/20 22:00 History 300 mg Metoprolol [Lopressor TAB] 50 mg PO BID 04/23/20 04/23/20 Unknown History Active Meds: Active Medications Acetaminophen (Tylenol) 650 mg PO Q6H PRN PRN Reason: Pain, Mild (1-3) Amiodarone HCl (Cordarone) 200 mg PO DAILY [facility] Aspirin (Ecotrin) 325 mg PO QDAY [facility] Atorvastatin Calcium (Lipitor) 40 mg PO QHS [facility] Furosemide (Lasix) 40 mg PO QDAY [facility] Heparin Sodium (Porcine) (Heparin) 5,000 unit SUB-Q Q8HR [facility] Stop: 04/23/20 20:00 Last Admin: 04/23/20 15:27 Dose: Not Given Documented by: Hydralazine HCl (Apresoline) 10 mg IV Q6H PRN PRN Reason: Blood Pressure Last Admin: 04/23/20 07:58 Dose: 10 mg Documented by: Hydromorphone HCl (Dilaudid) 0.5 mg IV Q3H PRN PRN Reason: Pain , Severe (7-10) Last Admin: 04/23/20 15:21 Dose: 0.5 mg Documented by: Heparin Sodium/Sodium Chloride (Heparin/ 0.45% Nacl-25,000 Unit/500 Ml) 25,000 unit in 500 mls @ 30 mls/hr IV TITR [facility]; Protocol Stop: 04/26/20 04:00 Lisinopril (Zestril) 10 mg PO QDAY [facility] Magnesium Hydroxide (Milk Of Magnesia) 30 ml PO Q4H PRN PRN Reason: Constipation Metoprolol Tartrate (Metoprolol) 50 mg PO BID [facility] Last Admin: 04/23/20 12:16 Dose: 50 mg Documented by: Morphine Sulfate (Morphine) 2 mg IV Q5MIN PRN PRN Reason: Chest Pain Last Admin: 04/23/20 08:43 Dose: 2 mg Documented by: Nitroglycerin (Nitrostat) 0.4 mg SL Q5M PRN PRN Reason: Chest Pain Ondansetron HCl (Zofran) 4 mg IV Q8H PRN PRN Reason: Nausea And Vomiting Oxycodone HCl (Roxicodone) 2.5 mg PO Q6H PRN PRN Reason: Pain, Moderate (4-6) Last Admin: 04/23/20 18:15 Dose: 2.5 mg Documented by: Oxycodone/Acetaminophen (Percocet 5/325) 1 tab PO Q6H PRN PRN Reason: Pain, Moderate (4-6) Last Admin: 04/23/20 18:15 Dose: 1 tab Documented by: Pantoprazole Sodium (Protonix) 40 mg PO QDAC [facility] Sodium Chloride (Sodium Chloride Flush Syringe 10 Ml) 10 ml IV PRN PRN PRN Reason: LINE FLUSH Sodium Chloride (Sodium Chloride Flush Syringe 10 Ml) 10 ml IV BID [facility] Last Admin: 04/23/20 12:20 Dose: 10 ml Documented by: Exam - Constitutional Vitals: Temp Pulse Resp BP Pulse Ox 98.2 F 85 20 172/107 99 04/23/20 15:33 04/23/20 15:33 04/23/20 12:12 04/23/20 15:33 04/23/20 15:33 HEART Score - HEART Score EKG: Non-specific Age: 45-65 Risk factors: 1-2 risk factors Troponin: Troponin T < 0.010 ng/mL (0.00-0.029) 04/23/20 Unknown Troponin: < normal limit Results - Labs CBC & Chem 7: 04/23/20 04:39 04/23/20 04:39 Labs: Laboratory Last Values WBC 9.7 K/mm3 (4.5-11.0) 04/23/20 04:39 RBC 3.53 M/mm3 (3.65-5.03) L 04/23/20 04:39 Hgb 9.9 gm/dl (11.8-15.2) L 04/23/20 04:39 Hct 31.2 % (35.5-45.6) L 04/23/20 04:39 MCV 88 fl (84-94) 04/23/20 04:39 MCH 28 pg (28-32) 04/23/20 04:39 MCHC 32 % (32-34) 04/23/20 04:39 RDW 15.5 % (13.2-15.2) H 04/23/20 04:39 Plt Count 344 K/mm3 (140-440) 04/23/20 04:39 Lymph % (Auto) 19.0 % (13.4-35.0) 04/23/20 04:39 [place] % (Auto) 9.6 % (0.0-7.3) H 04/23/20 04:39 Eos % (Auto) 2.7 % (0.0-4.3) 04/23/20 04:39 Baso % (Auto) 0.8 % (0.0-1.8) 04/23/20 04:39 Lymph # (Auto) 1.8 K/mm3 (1.2-5.4) 04/23/20 04:39 [place] # (Auto) 0.9 K/mm3 (0.0-0.8) H 04/23/20 04:39 Eos # (Auto) 0.3 K/mm3 (0.0-0.4) 04/23/20 04:39 Baso # (Auto) 0.1 K/mm3 (0.0-0.1) 04/23/20 04:39 Seg Neutrophils % 67.9 % (40.0-70.0) 04/23/20 04:39 Seg Neutrophils # 6.6 K/mm3 (1.8-7.7) 04/23/20 04:39 Sodium 139 mmol/L (137-145) 04/23/20 04:39 Potassium 3.5 mmol/L (3.6-5.0) L 04/23/20 04:39 Chloride 101.2 mmol/L (98-107) 04/23/20 04:39 Carbon Dioxide 28 mmol/L (22-30) 04/23/20 04:39 Anion Gap 13 mmol/L 04/23/20 04:39 BUN 14 mg/dL (9-20) 04/23/20 04:39 Creatinine 1.1 mg/dL (0.8-1.3) 04/23/20 04:39 Estimated GFR > 60 ml/min 04/23/20 04:39 BUN/Creatinine Ratio 13 % 04/23/20 04:39 Glucose 116 mg/dL (75-100) H 04/23/20 04:39 Calcium 8.9 mg/dL (8.4-10.2) 04/23/20 04:39 Troponin T < 0.010 ng/mL (0.00-0.029) 04/23/20 Unknown Triglycerides 98 mg/dL (2-149) 04/23/20 04:39 Cholesterol 91 mg/dL (50-199) 04/23/20 04:39 LDL Cholesterol Direct 43 mg/dL (50-130) L 04/23/20 04:39 HDL Cholesterol 36 mg/dL (40-59) L 04/23/20 04:39 Cholesterol/HDL Ratio 2.52 % 04/23/20 04:39 [place]/IV: Voiding Method Urinal IV Catheter Type [Left Hand] INT / [place]
[2020-04-23 19:16] LABS: Hematocrit 32.8 % (35.5-45.6); Hemoglobin 10.5 gm/dl (11.8-15.2)
[2020-04-23 19:47] LABS: INR 1.2 (0.87-1.13)
[2020-04-23 19:49] LABS: Partial Thromboplastin Time 33.7 Sec. (24.2-36.6)
--- NOTE | 2020-04-23 20:05 | Treadmill Report ---
PHARMACOLOGICAL MYOCARDIAL PERFUSION IMAGING REPORT This being performed on a 64-year-old gentleman with chronic heart failure and low ejection fraction, presented with atypical chest pains. Baseline EKG showed atrial flutter, heart rate in 80s to 90s. Post-vasodilation with IV Lexiscan did not show any significant ST-T changes. Heart rate remained more or less stable; however, it is to be noted the patient's blood pressure is significantly elevated throughout the procedure, ranging in the range of 190 mmHg systolic to 120 mmHg of diastolic blood pressure. Nuclear images were performed at rest and also post-vasodilation with an IV regadenoson using technetium M98 sestamibi isotope. Resting images and post-stress images showed a moderate perfusion defects in the anterior wall, which appears to be partially reversible during the rest. Similarly, a small apical defect, which is more or less fixed is noted. Also, mid, apical inferior defect, which is more or less fixed noted. Gating was not performed because of underlying atrial flutter. FINAL IMPRESSION: 1. The patient has underlying atrial flutter with controlled ventricular rate. 2. Markedly elevated resting blood pressure with a diastolic of 120 mmHg noted. 3. No chest pain during the procedure. 4. Multiple defects noted including apical, inferior wall, which appeared to be fixed and partially reversible anterior wall defect. This may represent dilated cardiomyopathy; however, ischemia cannot be excluded. Would recommend cardiac catheterization for definitive diagnosis. JOB# [id number] SHA/VIRIDIANA
[2020-04-23] MEDS ORDERED: HEPARIN 10,000 UNITS/10 ML VIAL ONE (21:48)
[2020-04-23] MEDS: HEPARIN/ 0.45% NACL DRIP 25,000 UNIT/500 ML BAG IV SCH (21:49)
[2020-04-23] MEDS ORDERED: APIXABAN 5 MG TAB PO SCH (22:00)
[2020-04-24] MEDS: oxyCODONE /ACETAMINOPHEN 5-325MG TAB PO PRN ×3 (01:27→16:02)
[2020-04-24] MEDS: oxyCODONE 5 MG TAB PO PRN ×2 (01:28→09:20)
[2020-04-24] MEDS: HYDROmorphone 1 MG/1 ML INJ IV PRN ×2 (06:02→21:02)
[2020-04-24] MEDS: hydrALAZINE 20 MG/1 ML INJ IV PRN ×2 (06:03→16:03)
[2020-04-24 06:15] LABS: Basophils # (Auto) 0.1 K/mm3 (0.0-0.1); Basophils % (Auto) 1.3 % (0.0-1.8); Eosinophils # (Auto) 0.3 K/mm3 (0.0-0.4); Eosinophils % (Auto) 3.4 % (0.0-4.3); Hematocrit 32.1 % (35.5-45.6); Hemoglobin 10.4 gm/dl (11.8-15.2); Lymphocytes # (Auto) 1.9 K/mm3 (1.2-5.4); Lymphocytes % (Auto) 19.2 % (13.4-35.0); Mean Corpuscular HGB Conc 32 % (32-34); Mean Corpuscular Volume 88 fl (84-94); Monocytes # (Auto) 0.9 K/mm3 (0.0-0.8); Platelet Count 333 K/mm3 (140-440); Red Blood Count 3.65 M/mm3 (3.65-5.03); Red Cell Distribution Width 15.8 % (13.2-15.2)
[2020-04-24 06:34] LABS: BUN/Creatinine Ratio 16; Blood Urea Nitrogen 14 mg/dL (9-20); Calcium 8.8 mg/dL (8.4-10.2); Hemolysis Index 54
[2020-04-24 08:14] LABS: INR 1.25 (0.87-1.13)
[2020-04-24] MEDS: ASPIRIN EC 325 MG TAB PO SCH (09:19)
[2020-04-24] MEDS: METOPROLOL TARTRATE 50 MG TAB PO SCH ×2 (09:19→21:01)
[2020-04-24] MEDS: AMIODARONE 200 MG TAB PO SCH (09:19)
[2020-04-24] MEDS: PANTOPRAZOLE 40 MG TAB PO SCH (09:19)
--- NOTE | 2020-04-24 09:25 | Progress Note ---
Assessment and Plan (1) Acute coronary syndrome Current Visit: Yes Status: Acute Qualifiers: Chest pain type: unspecified Qualified Code(s): R07.9 - Chest pain, unspecified Plan to address problem: S/p lexiscan MPI stress test today which was abnormal, showed both fixed and reversible defects, EF ~20%. Coronary angiography recommended for definitive diagnosis. Indications, potential risks and benefits of LHC reviewed with pt and he is agreeable to proceed with LHC on 04/26/2020. Convert home Eliquis to heparin gtt for AFib/AFlutter in the interim. Plan to resume Eliquis following LHC. Cont GDMT and volume optimization over the weekend. (2) Hypertensive urgency Current Visit: Yes Status: Acute Plan to address problem: Continue antihypertensives and adjust medications as necessary Blood pressure under control (3) Wound of lower extremity Current Visit: No Status: Acute Plan to address problem: Wound care (4) History of atrial fibrillation Current Visit: No Status: Chronic Plan to address problem: Patient to start Eliquis after the cardiac cath (5) DVT prophylaxis Current Visit: Yes Status: Acute Plan to address problem: Patient placed on subcutaneous heparin. (6) Full code status Current Visit: Yes Status: Acute Subjective Date of service: 04/24/20 Principal diagnosis: Acute Coronary syndrome Interval history: 64-year-old male with history of coronary artery disease, atrial fibrillation, hypertension, chronic venous stasis ulcers in both lower extremities comes in for chest pain of 24 hours duration. Chest pain is intermittent. Chest pain is 10 on a scale of 1-10. No exposure to coronavirus. Patient is admitted for evaluation of chest pain. Patient also has a high blood pressure and tachycardia. Symptomatically better today. Day #2 04/24/2020 Lexiscan was abnormal Patient for cardiac cath on 04/26/2020 Objective - Constitutional Vitals: Vital Signs - 12hr 04/23/20 04/23/20 04/23/20 22:00 22:01 22:02 Temperature Pulse Rate 99 H 94 H 74 Respiratory Rate Respiratory Rate [Bilateral Leg] Blood Pressure 170/112 172/112 O2 Sat by Pulse 97 Oximetry 04/23/20 04/24/20 04/24/20 23:36 01:27 02:28 Temperature 98.4 F Pulse Rate 85 Respiratory 20 20 20 Rate Respiratory Rate [Bilateral Leg] Blood Pressure 190/98 O2 Sat by Pulse 97 Oximetry 04/24/20 04/24/20 04/24/20 04:49 05:00 06:02 Temperature 99.1 F Pulse Rate 97 H Respiratory 18 20 Rate Respiratory 20 Rate [Bilateral Leg] Blood Pressure 159/107 O2 Sat by Pulse 100 Oximetry 04/24/20 04/24/20 04/24/20 06:32 07:45 09:18 Temperature 98.2 F Pulse Rate 105 H Respiratory 20 20 Rate Respiratory Rate [Bilateral Leg] Blood Pressure 164/116 164/116 O2 Sat by Pulse 97 Oximetry 04/24/20 09:19 Temperature Pulse Rate Respiratory Rate Respiratory Rate [Bilateral Leg] Blood Pressure 164/116 O2 Sat by Pulse Oximetry General appearance: Present: no acute distress, well-nourished - EENT Eyes: PERRL, EOM intact ENT: hearing intact, clear oral mucosa Ears: bilateral: normal - Neck Neck: supple, normal ROM - Respiratory Respiratory effort: normal Respiratory: bilateral: CTA - Breasts Breasts: normal - Cardiovascular Heart rate: 78 Rhythm: regular Heart Sounds: Present: S1 & S2. Absent: gallop, rub Extremities: pulses intact, No edema, normal color, Full ROM - Gastrointestinal General gastrointestinal: Present: soft, non-tender, non-distended, normal bowel sounds - Genitourinary Male genitourinary: normal - Integumentary Integumentary: clear, warm, dry - Musculoskeletal Musculoskeletal: 1, strength equal bilaterally - Neurologic Neurologic: moves all extremities - Psychiatric Psychiatric: memory intact, appropriate mood/affect, intact judgment & insight - Allied health notes Allied health notes reviewed: nursing, case management - Labs CBC & Chem 7: 04/25/20 04:00 04/24/20 05:45 Labs: Abnormal lab results 04/23/20 04/23/20 04/23/20 Range/Units 19:00 19:00 21:05 Hgb 10.5 L (11.8-15.2) gm/dl Hct 32.8 L (35.5-45.6) % RDW (13.2-15.2) % [place] % (Auto) (0.0-7.3) % [place] # (Auto) (0.0-0.8) K/mm3 PT 15.5 H (12.2-14.9) Sec. INR 1.20 H (0.87-1.13) Heparin Anti-Xa Level (0.3-0.7) U.I./ml Sodium (137-145) mmol/L Glucose (75-100) mg/dL POC Glucose 129 H (70-105) mg/dL 04/24/20 04/24/20 04/24/20 Range/Units 05:45 05:45 07:12 Hgb 10.4 L (11.8-15.2) gm/dl Hct 32.1 L (35.5-45.6) % RDW 15.8 H (13.2-15.2) % [place] % (Auto) 9.0 H (0.0-7.3) % [place] # (Auto) 0.9 H (0.0-0.8) K/mm3 PT 16.0 H (12.2-14.9) Sec. INR 1.25 H (0.87-1.13) Heparin Anti-Xa Level < 0.10 L (0.3-0.7) U.I./ml Sodium 136 L (137-145) mmol/L Glucose 152 H (75-100) mg/dL POC Glucose (70-105) mg/dL 04/24/20 Range/Units 08:00 Hgb (11.8-15.2) gm/dl Hct (35.5-45.6) % RDW (13.2-15.2) % [place] % (Auto) (0.0-7.3) % [place] # (Auto) (0.0-0.8) K/mm3 PT (12.2-14.9) Sec. INR (0.87-1.13) Heparin Anti-Xa Level (0.3-0.7) U.I./ml Sodium (137-145) mmol/L Glucose (75-100) mg/dL POC Glucose 154 H (70-105) mg/dL HEART Score - HEART Score EKG: Non-specific Age: 45-65 Risk factors: 1-2 risk factors Troponin: Troponin T < 0.010 ng/mL (0.00-0.029) 04/23/20 Unknown Troponin: < normal limit
[2020-04-24] MEDS ORDERED: LISINOPRIL 10 MG TAB PO SCH (10:00)
[2020-04-24] MEDS ORDERED: FUROSEMIDE 40 MG TAB PO SCH (10:00)
--- NOTE | 2020-04-24 10:24 | Progress Note ---
Assessment and Plan Patient is on heparin therapy till cardiac catheterization on Sunday. Will increase diuretic therapy to help the patient's shortness of breath. Increase beta-otilia to metoprolol 100 mg twice a day. Increase lisinopril for better blood pressure control. Check labs - Patient Problems (1) Morbid obesity due to excess calories Current Visit: Yes Status: Chronic (2) Atrial flutter Current Visit: Yes Status: Acute Qualifiers: Atrial flutter type: typical Qualified Code(s): I48.3 - Typical atrial flutter (3) SOB (shortness of breath) Current Visit: Yes Status: Acute (4) Cardiomyopathy Current Visit: Yes Status: Chronic Qualifiers: Cardiomyopathy type: dilated Qualified Code(s): I42.0 - Dilated cardiomyopathy (5) Chronic venous hypertension (idiopathic) with ulcer of bilateral lower extremity Current Visit: Yes Status: Chronic (6) HTN (hypertension) Current Visit: Yes Status: Chronic Qualifiers: Hypertension type: essential hypertension Qualified Code(s): I10 - Essential (primary) hypertension (7) Acute HFrEF (heart failure with reduced ejection fraction) Current Visit: No Status: Acute (8) Medical non-compliance Current Visit: No Status: Chronic Subjective Date of service: 04/24/20 Principal diagnosis: chf Interval history: Shortness of breath is improving Objective Vital Signs Temp Pulse Resp Resp BP Pulse Ox 04/24/20 10:03 95 04/24/20 09:19 164/116 04/24/20 09:18 164/116 04/24/20 07:45 98.2 F 105 H 20 164/116 97 04/24/20 06:32 20 04/24/20 06:02 20 04/24/20 05:00 20 04/24/20 04:49 99.1 F 97 H 18 159/107 100 04/24/20 02:28 20 04/24/20 01:27 20 04/23/20 23:36 98.4 F 85 20 190/98 97 04/23/20 22:02 74 172/112 04/23/20 22:01 94 H 170/112 04/23/20 22:00 99 H 97 04/23/20 20:31 20 04/23/20 20:01 22 04/23/20 19:20 98.5 F 94 H 18 170/112 98 10/30/20 19:15 20 04/23/20 15:33 98.2 F 85 172/107 99 04/23/20 12:12 97.6 F 101 H 20 201/123 99 04/23/20 11:20 190/123 04/23/20 11:18 181/118 04/23/20 11:16 184/108 04/23/20 11:14 194/104 04/23/20 11:12 189/112 04/23/20 11:10 190/105 04/23/20 11:09 183/108 04/23/20 10:55 177/154 04/23/20 10:24 199/120 - Physical Examination General: No Apparent Distress HEENT: Positive: PERRL, Normocephaly, Mucus Membranes Moist Neck: Positive: neck supple, trachea midline Cardiac: Positive: Irregularly Regular Lungs: Positive: Decreased Breath Sounds Neuro: Positive: Grossly Intact Abdomen: Negative: Tender Skin: Negative: Rash Musculoskeletal: No Pain Extremities: Present: edema, +1 Edema - Labs and Meds Coagulation 04/23/20 04/24/20 Range/Units 19:00 07:12 PT 15.5 H 16.0 H (12.2-14.9) Sec. INR 1.20 H 1.25 H (0.87-1.13) APTT 33.7 (24.2-36.6) Sec. CBC 04/23/20 04/24/20 Range/Units 19:00 05:45 WBC 9.7 (4.5-11.0) K/mm3 RBC 3.65 (3.65-5.03) M/mm3 Hgb 10.5 L 10.4 L (11.8-15.2) gm/dl Hct 32.8 L 32.1 L (35.5-45.6) % Plt Count 363 333 (140-440) K/mm3 Lymph # (Auto) 1.9 (1.2-5.4) K/mm3 [place] # (Auto) 0.9 H (0.0-0.8) K/mm3 Eos # (Auto) 0.3 (0.0-0.4) K/mm3 Baso # (Auto) 0.1 (0.0-0.1) K/mm3 Comprehensive Metabolic Panel 04/24/20 Range/Units 05:45 Sodium 136 L (137-145) mmol/L Potassium 4.5 D (3.6-5.0) mmol/L Chloride 99.6 (98-107) mmol/L Carbon Dioxide 23 (22-30) mmol/L BUN 14 (9-20) mg/dL Creatinine 0.9 (0.8-1.3) mg/dL Glucose 152 H (75-100) mg/dL Calcium 8.8 (8.4-10.2) mg/dL - Imaging and Cardiology EKG: report reviewed, image reviewed Echo: report reviewed ( 04/07/2020 showed LV mildly dilated; mod concentric LVH; EF 20-25%; RV mildly dilated; RA mod dilated; mild MR.) - Telemetry EKG Rhythm: Atrial Flutter
--- NOTE | 2020-04-24 15:47 | Progress Note ---
Assessment and Plan (1) Acute coronary syndrome Current Visit: Yes Status: Acute Qualifiers: Chest pain type: unspecified Qualified Code(s): R07.9 - Chest pain, unspecified Plan to address problem: S/p lexiscan MPI stress test today which was abnormal, showed both fixed and reversible defects, EF ~20%. Coronary angiography recommended for definitive diagnosis. Indications, potential risks and benefits of LHC reviewed with pt and he is agreeable to proceed with LHC on 04/26/2020. Convert home Eliquis to heparin gtt for AFib/AFlutter in the interim. Plan to resume Eliquis following LHC. Cont GDMT and volume optimization over the weekend. (2) Hypertensive urgency Current Visit: Yes Status: Acute Plan to address problem: Blood pressure trending up Today blood pressure is 188/100 We will adjust the medications Added hydralazine 25 mg every 8 for afterload reduction We will discuss with cardiology whether to continue (3) Wound of lower extremity Current Visit: No Status: Acute Plan to address problem: Wound care (4) History of atrial fibrillation Current Visit: No Status: Chronic Plan to address problem: Rate is currently controlled. We will start Eliquis after left heart catheterization (5) DVT prophylaxis Current Visit: Yes Status: Acute Plan to address problem: Patient placed on subcutaneous heparin. (6) Full code status Current Visit: Yes Status: Acute Subjective Date of service: 04/25/20 Principal diagnosis: Acute coronary syndrome Interval history: 64-year-old male with history of coronary artery disease, atrial fibrillation, hypertension, chronic venous stasis ulcers in both lower extremities comes in for chest pain of 24 hours duration. Chest pain is intermittent. Chest pain is 10 on a scale of 1-10. No exposure to coronavirus. Patient is admitted for evaluation of chest pain. Patient also has a high blood pressure and tachycardia. Symptomatically better today. Day #2 04/24/2020 Lexiscan was abnormal Patient for cardiac cath on 04/26/2020 Day #3 04/25/2020 Patient symptomatically better Patient waiting for left heart catheterization on 04/26/2020 Objective - Constitutional Vitals: Vital Signs - 12hr 04/24/20 04/24/20 04/24/20 04:49 05:00 06:02 Temperature 99.1 F Pulse Rate 97 H Respiratory 18 20 Rate Respiratory 20 Rate [Bilateral Leg] Blood Pressure 159/107 O2 Sat by Pulse 100 Oximetry 04/24/20 04/24/20 04/24/20 06:32 07:45 09:18 Temperature 98.2 F Pulse Rate 105 H Respiratory 20 20 Rate Respiratory Rate [Bilateral Leg] Blood Pressure 164/116 164/116 O2 Sat by Pulse 97 Oximetry 04/24/20 04/24/20 04/24/20 09:19 10:03 11:27 Temperature 98.4 F Pulse Rate 94 H Respiratory 18 Rate Respiratory Rate [Bilateral Leg] Blood Pressure 164/116 156/106 O2 Sat by Pulse 95 97 Oximetry General appearance: Present: no acute distress, well-nourished - EENT Eyes: PERRL, EOM intact ENT: hearing intact, clear oral mucosa Ears: bilateral: normal - Neck Neck: supple, normal ROM - Respiratory Respiratory effort: normal Respiratory: bilateral: CTA - Breasts Breasts: normal - Cardiovascular Heart rate: 78 Rhythm: irregularly irregular Heart Sounds: Present: S1 & S2. Absent: gallop, rub Extremities: pulses intact, No edema, normal color, Full ROM Extremity abnormal: other (Stasis ulcers on both lower extremities) - Gastrointestinal General gastrointestinal: Present: soft, non-tender, non-distended, normal bowel sounds - Genitourinary Male genitourinary: normal - Integumentary Integumentary: clear, warm, dry - Musculoskeletal Musculoskeletal: 1, strength equal bilaterally - Neurologic Neurologic: moves all extremities - Psychiatric Psychiatric: memory intact, appropriate mood/affect, intact judgment & insight - Allied health notes Allied health notes reviewed: nursing, case management - Labs CBC & Chem 7: 04/25/20 04:00 04/24/20 05:45 Labs: Abnormal lab results 04/23/20 04/23/20 04/23/20 Range/Units 19:00 19:00 21:05 Hgb 10.5 L (11.8-15.2) gm/dl Hct 32.8 L (35.5-45.6) % RDW (13.2-15.2) % [place] % (Auto) (0.0-7.3) % [place] # (Auto) (0.0-0.8) K/mm3 PT 15.5 H (12.2-14.9) Sec. INR 1.20 H (0.87-1.13) Heparin Anti-Xa Level (0.3-0.7) U.I./ml Sodium (137-145) mmol/L Glucose (75-100) mg/dL POC Glucose 129 H (70-105) mg/dL 04/24/20 04/24/20 04/24/20 Range/Units 05:45 05:45 07:12 Hgb 10.4 L (11.8-15.2) gm/dl Hct 32.1 L (35.5-45.6) % RDW 15.8 H (13.2-15.2) % [place] % (Auto) 9.0 H (0.0-7.3) % [place] # (Auto) 0.9 H (0.0-0.8) K/mm3 PT 16.0 H (12.2-14.9) Sec. INR 1.25 H (0.87-1.13) Heparin Anti-Xa Level < 0.10 L (0.3-0.7) U.I./ml Sodium 136 L (137-145) mmol/L Glucose 152 H (75-100) mg/dL POC Glucose (70-105) mg/dL 04/24/20 04/24/20 Range/Units 08:00 11:42 Hgb (11.8-15.2) gm/dl Hct (35.5-45.6) % RDW (13.2-15.2) % [place] % (Auto) (0.0-7.3) % [place] # (Auto) (0.0-0.8) K/mm3 PT (12.2-14.9) Sec. INR (0.87-1.13) Heparin Anti-Xa Level (0.3-0.7) U.I./ml Sodium (137-145) mmol/L Glucose (75-100) mg/dL POC Glucose 154 H 196 H (70-105) mg/dL HEART Score - HEART Score EKG: Non-specific Age: 45-65 Risk factors: 1-2 risk factors Troponin: Troponin T < 0.010 ng/mL (0.00-0.029) 04/23/20 Unknown Troponin: < normal limit
[2020-04-24] MEDS: HEPARIN/ 0.45% NACL DRIP 25,000 UNIT/500 ML BAG IV SCH ×2 (16:02→16:26)
[2020-04-24] MEDS: FUROSEMIDE 40 MG/4 ML INJ IV SCH (18:20)
[2020-04-24] MEDS: KETOROLAC 30 MG/1 ML INJ IV PRN (18:45)
[2020-04-24] MEDS: LISINOPRIL 10 MG TAB PO SCH (21:00)
[2020-04-25] MEDS: oxyCODONE /ACETAMINOPHEN 5-325MG TAB PO PRN ×4 (01:11→20:32)
[2020-04-25] MEDS: HYDROmorphone 1 MG/1 ML INJ IV PRN (02:04)
[2020-04-25] MEDS: HEPARIN/ 0.45% NACL DRIP 25,000 UNIT/500 ML BAG IV SCH (02:37)
[2020-04-25] MEDS: hydrALAZINE 20 MG/1 ML INJ IV PRN (04:03)
[2020-04-25] MEDS: FUROSEMIDE 40 MG/4 ML INJ IV SCH ×2 (06:06→18:27)
[2020-04-25 06:55] LABS: Basophils # (Auto) 0.1 K/mm3 (0.0-0.1); Basophils % (Auto) 0.9 % (0.0-1.8); Eosinophils # (Auto) 0.3 K/mm3 (0.0-0.4); Eosinophils % (Auto) 4.3 % (0.0-4.3); Hematocrit 28.7 % (35.5-45.6); Hemoglobin 9.3 gm/dl (11.8-15.2); Lymphocytes # (Auto) 1.5 K/mm3 (1.2-5.4); Lymphocytes % (Auto) 21.3 % (13.4-35.0); Mean Corpuscular HGB Conc 32 % (32-34); Mean Corpuscular Volume 88 fl (84-94); Monocytes # (Auto) 0.7 K/mm3 (0.0-0.8); Monocytes % (Auto) 9.5 % (0.0-7.3); Platelet Count 325 K/mm3 (140-440); Red Blood Count 3.28 M/mm3 (3.65-5.03); Red Cell Distribution Width 15.4 % (13.2-15.2)
[2020-04-25 07:28] LABS: BUN/Creatinine Ratio 13; Blood Urea Nitrogen 13 mg/dL (9-20); Calcium 8.6 mg/dL (8.4-10.2); Hemolysis Index 0
[2020-04-25] MEDS ORDERED: HEPARIN 10,000 UNITS/10 ML VIAL ONE (09:53)
[2020-04-25] MEDS ORDERED: HEPARIN 10,000 UNITS/10 ML VIAL IV ONE (10:00)
[2020-04-25] MEDS: LISINOPRIL 10 MG TAB PO SCH ×2 (10:31→21:14)
[2020-04-25] MEDS: AMIODARONE 200 MG TAB PO SCH (10:31)
[2020-04-25] MEDS: ASPIRIN EC 325 MG TAB PO SCH (10:31)
[2020-04-25] MEDS: PANTOPRAZOLE 40 MG TAB PO SCH (10:32)
[2020-04-25] MEDS: hydrALAZINE 25 MG TAB PO SCH ×3 (10:32→21:14)
[2020-04-25] MEDS: METOPROLOL TARTRATE 50 MG TAB PO SCH ×2 (10:32→21:13)
--- NOTE | 2020-04-25 11:01 | Progress Note ---
Assessment and Plan 64-year-old patient with systolic heart failure with atrial flutter morbid obesity hypertensive urgency increase hydralazine for better blood pressure control continue lisinopril continue Lopressor continue amnio. Patient is scheduled for cardiac catheterization in the a.m. Patient may also need MIHCAEL cardioversion but patient is hesitant for his atrial flutter. As patient has severe LV dysfunction. Patient will be on Coumadin as patient cannot afford Eliquis. - Patient Problems (1) Morbid obesity due to excess calories Current Visit: Yes Status: Chronic (2) Atrial flutter Current Visit: Yes Status: Acute Qualifiers: Atrial flutter type: typical Qualified Code(s): I48.3 - Typical atrial flutter (3) SOB (shortness of breath) Current Visit: Yes Status: Acute (4) Cardiomyopathy Current Visit: Yes Status: Chronic Qualifiers: Cardiomyopathy type: dilated Qualified Code(s): I42.0 - Dilated cardiomyopathy (5) Chronic venous hypertension (idiopathic) with ulcer of bilateral lower extremity Current Visit: Yes Status: Chronic (6) HTN (hypertension) Current Visit: Yes Status: Chronic Qualifiers: Hypertension type: essential hypertension Qualified Code(s): I10 - Essential (primary) hypertension (7) Acute HFrEF (heart failure with reduced ejection fraction) Current Visit: No Status: Acute (8) Medical non-compliance Current Visit: No Status: Chronic Subjective Date of service: 04/25/20 Principal diagnosis: Acute coronary syndrome Interval history: Patient has chronic right leg pain breathing has improved Objective Vital Signs Temp Pulse Pulse Resp BP Pulse Ox 04/25/20 10:32 110 H 04/25/20 10:31 110 H 04/25/20 09:00 98 04/25/20 07:42 98.5 F 99 H 20 165/109 96 04/25/20 04:03 188/100 04/25/20 03:57 98.0 F 87 18 188/100 100 04/25/20 01:55 EST 74 04/24/20 23:46 98.0 F 79 18 143/87 97 04/24/20 22:00 99 H 103 H 04/24/20 21:01 103 H 185/115 04/24/20 21:00 103 H 185/115 04/24/20 19:19 98.0 F 103 H 20 187/115 100 04/24/20 16:03 04/24/20 16:00 98.5 F 97 H 20 100 - Physical Examination General: No Apparent Distress HEENT: Positive: PERRL, Normocephaly, Mucus Membranes Moist Neck: Positive: neck supple, trachea midline Cardiac: Positive: Tachycardia Lungs: Positive: clear to auscultation Neuro: Positive: Grossly Intact Abdomen: Negative: Tender Skin: Negative: Rash Musculoskeletal: No Pain Extremities: Present: edema (Bilateral bandages), +1 Edema - Labs and Meds CBC 04/25/20 Range/Units 04:00 WBC 7.0 (4.5-11.0) K/mm3 RBC 3.28 L (3.65-5.03) M/mm3 Hgb 9.3 L (11.8-15.2) gm/dl Hct 28.7 L (35.5-45.6) % Plt Count 325 (140-440) K/mm3 Lymph # (Auto) 1.5 (1.2-5.4) K/mm3 [place] # (Auto) 0.7 (0.0-0.8) K/mm3 Eos # (Auto) 0.3 (0.0-0.4) K/mm3 Baso # (Auto) 0.1 (0.0-0.1) K/mm3 Comprehensive Metabolic Panel 04/25/20 Range/Units 06:05 Sodium 140 (137-145) mmol/L Potassium 4.1 (3.6-5.0) mmol/L Chloride 101.6 (98-107) mmol/L Carbon Dioxide 28 (22-30) mmol/L BUN 13 (9-20) mg/dL Creatinine 1.0 (0.8-1.3) mg/dL Glucose 160 H (75-100) mg/dL Calcium 8.6 (8.4-10.2) mg/dL - Imaging and Cardiology EKG: report reviewed, image reviewed Echo: report reviewed ( 04/07/2020 showed LV mildly dilated; mod concentric LVH; EF 20-25%; RV mildly dilated; RA mod dilated; mild MR.) - Telemetry EKG Rhythm: Atrial Flutter (Heart rate 100)
[2020-04-25] MEDS: KETOROLAC 30 MG/1 ML INJ IV PRN (11:30)
[2020-04-26] MEDS: HYDROmorphone 1 MG/1 ML INJ IV PRN ×4 (01:23→21:13)
[2020-04-26] MEDS: hydrALAZINE 25 MG TAB PO SCH ×3 (06:19→21:11)
[2020-04-26] MEDS: FUROSEMIDE 40 MG/4 ML INJ IV SCH ×2 (06:20→18:09)
[2020-04-26 06:48] LABS: Basophils # (Auto) 0.1 K/mm3 (0.0-0.1); Basophils % (Auto) 1.1 % (0.0-1.8); Eosinophils # (Auto) 0.3 K/mm3 (0.0-0.4); Hematocrit 28.8 % (35.5-45.6); Hemoglobin 9.3 gm/dl (11.8-15.2); Lymphocytes # (Auto) 1.7 K/mm3 (1.2-5.4); Lymphocytes % (Auto) 20.6 % (13.4-35.0); Mean Corpuscular HGB Conc 32 % (32-34); Mean Corpuscular Volume 87 fl (84-94); Monocytes # (Auto) 0.7 K/mm3 (0.0-0.8); Monocytes % (Auto) 8.1 % (0.0-7.3); Platelet Count 306 K/mm3 (140-440); Red Cell Distribution Width 15.7 % (13.2-15.2)
[2020-04-26 06:49] LABS: INR 1.26 (0.87-1.13)
[2020-04-26] MEDS: oxyCODONE /ACETAMINOPHEN 5-325MG TAB PO PRN ×2 (06:59→18:50)
[2020-04-26] MEDS: PANTOPRAZOLE 40 MG TAB PO SCH (06:59)
[2020-04-26 07:00] LABS: BUN/Creatinine Ratio 13; Blood Urea Nitrogen 15 mg/dL (9-20); Calcium 8.7 mg/dL (8.4-10.2); Hemolysis Index 0
[2020-04-26] MEDS ORDERED: ASPIRIN EC 325 MG TAB PO ONE (08:54)
[2020-04-26] MEDS ORDERED: SODIUM CHLORIDE 0.9% 500 ML 500 ML ONE (08:55)
[2020-04-26] MEDS ORDERED: SODIUM CHLORIDE 0.9% 500 ML 500 ML IV SCH (09:00)
[2020-04-26] MEDS ORDERED: MIDAZOLAM 2 MG/2 ML INJ ONE (09:07)
[2020-04-26] MEDS ORDERED: fentaNYL 100 MCG/2 ML INJ ONE (09:07)
[2020-04-26] MEDS ORDERED: VERAPAMIL 5 MG/2 ML INJ ONE (09:08)
[2020-04-26] MEDS ORDERED: HEPARIN/NS 5000 UNIT/500ML 1,000 ML IR ONE (09:08)
[2020-04-26] MEDS ORDERED: HEPARIN 10,000 UNITS/10 ML VIAL ONE (09:08)
[2020-04-26] MEDS ORDERED: LIDOCAINE (2%) 20 MG/1 ML VIAL 20 ML MDV INFILTRATI ONE ×2 (09:09→09:50)
[2020-04-26] MEDS: ASPIRIN EC 325 MG TAB PO SCH (09:24)
[2020-04-26] MEDS: NITROGLYCERIN SYRINGE 3 ML ONE ×2 (09:47→11:13)
[2020-04-26] MEDS ORDERED: hydrALAZINE 20 MG/1 ML INJ ONE (10:05)
[2020-04-26] MEDS ORDERED: HYDROcodone/ACETAMINOPHEN 5-325 MG TAB PO PRN (10:30)
[2020-04-26] MEDS ORDERED: SODIUM CHLORIDE 0.9% 1000 ML 1,000 ML IV SCH (10:30)
[2020-04-26] MEDS ORDERED: HYDROmorphone 1 MG/1 ML INJ ONE (10:33)
[2020-04-26] MEDS ORDERED: traMADol 50 MG TAB PO PRN (11:00)
--- NOTE | 2020-04-26 11:15 | Cardiac Catherization Report ---
REFERRING PHYSICIAN: Hospitalist service. INDICATION FOR PROCEDURE: The patient is a pleasant 64-year-old -[place] gentleman with a history of cardiomyopathy, heart failure and atrial flutter, referred for left heart catheterization. Risks, benefits, and alternatives explained at length prior to obtaining informed consent. PROCEDURE IN DETAIL: The patient was brought to the catheterization lab in postabsorptive state, prepped and draped in sterile fashion. We were able to access the right radial artery, but he has significant tortuosity and small vessel change to groin approach. No complications there. A 5-La[place] sheath placed in the right common femoral artery via modified Seldinger technique. After lidocaine administration, JL4.5 catheter used to engage the left main. No dampening or ventricularization. Cineangiography performed in all projections. JR4 catheter used to cross the aortic valve under fluoroscopic guidance. Left ventriculography performed in 30 TEIXEIRA and 30 GEORGIAN projections via hand injections, catheter flushed. Manual pullback performed with continuous pressure monitoring. Catheter used to engage the right coronary. No dampening or ventricularization. Cineangiography performed in all projections. The catheter removed from the body of wire, sheath removed. Manual pressure used to achieve hemostasis. I directly supervised the administration of moderate sedation with fentanyl and Versed from 9:40 a.m. to 10:15 a.m. No immediate complications identified. DATA: The patient remained in atrial flutter with controlled ventricular response throughout the procedure. Left ventriculography revealed some moderate to severe global left ventricular hypokinesis, estimated ejection fraction of 35-40%. CORONARY ANATOMY: Right dominant system. Right coronary is a moderate sized vessel, courses AV groove, distally bifurcates into posterior and posterolateral branches. Left main without significant disease, bifurcates left anterior descending and left circumflex. Left circumflex, moderate sized vessel, courses AV groove, no significant disease, no significant disease in left main. LAD is a moderate sized vessel, courses anterior interventricular groove. No significant disease identified. DATA: Aortic pressure is 200/120. LV pressure is 200. LVP of 40 mmHg. CONCLUSIONS: 1. No angiographic evidence of significant epicardial coronary disease in this right dominant system. 2. Moderate global left ventricular hypokinesis, estimated ejection fraction of 35-40%. 3. No evidence of aortic stenosis. 4. Uncontrolled hypertension. Multiple durations of IV hydralazine given, mildly elevated LVEDP. We will give IV Lasix. These findings are consistent with a moderate nonischemic dilated cardiomyopathy, likely due to uncontrolled hypertension and advance hypertensive heart disease. Long discussion with the patient regarding results, standard groin care, aggressive blood pressure control, salt reduction, diet and lifestyle modification, dietitian consult. We will follow along. JOB# [id number] SBM/NTS
[2020-04-26] MEDS: LISINOPRIL 10 MG TAB PO SCH ×2 (11:16→21:12)
[2020-04-26] MEDS: METOPROLOL TARTRATE 50 MG TAB PO SCH ×2 (11:17→21:12)
[2020-04-26] MEDS: AMIODARONE 200 MG TAB PO SCH (11:17)
--- NOTE | 2020-04-26 11:45 | Progress Note ---
Assessment and Plan Will give one more dose of IV Lasix. Transition to PO Lasix in AM. Add Imdur to current regimen. Continue other present mgmt. Pt seen in conjunction with Dr. Saurav Escobar, who agrees with the assessment and plan of care. - Patient Problems (1) Acute HFrEF (heart failure with reduced ejection fraction) Current Visit: Yes Status: Acute (2) Non-ischemic cardiomyopathy Current Visit: Yes Status: Chronic (3) Atrial flutter Current Visit: Yes Status: Chronic Qualifiers: Atrial flutter type: typical Qualified Code(s): I48.3 - Typical atrial flutter (4) Anemia Current Visit: Yes Status: Chronic (5) Chronic venous hypertension (idiopathic) with ulcer of bilateral lower extremity Current Visit: Yes Status: Chronic (6) HTN (hypertension) Current Visit: Yes Status: Chronic Qualifiers: Hypertension type: essential hypertension Qualified Code(s): I10 - Essential (primary) hypertension (7) Morbid obesity due to excess calories Current Visit: Yes Status: Chronic (8) Medical non-compliance Current Visit: Yes Status: Chronic Subjective Date of service: 04/26/20 Principal diagnosis: Acute HFrEF Interval history: S/p LHC this AM, which revealed angiographically normal coronaries, EF 35-40%. Pt tolerated procedure well. Tele reviewed - AFlutter 70-80s w/ ~ 2 sec pause noted overnight (pt asymptomatic). Objective Last Vital Signs Temp 98.2 F 04/26/20 07:45 Pulse 89 04/26/20 08:00 Resp 18 04/26/20 08:00 BP 162/96 04/26/20 07:45 Pulse Ox 98 04/26/20 08:00 - Physical Examination General: No Apparent Distress HEENT: Positive: EOMI, Normocephaly, Mucus Membranes Moist Neck: Positive: neck supple, trachea midline Cardiac: Positive: irregularly irregular, S1/S2 Lungs: Positive: clear to auscultation Neuro: Positive: Grossly Intact Abdomen: Positive: Soft, Active Bowel Sounds. Negative: Tender Skin: Negative: Rash Musculoskeletal: No Pain Extremities: Present: +1 Edema (BLE), Other (BLE dressings) - Labs and Meds Coagulation 04/26/20 Range/Units 05:20 PT 16.1 H (12.2-14.9) Sec. INR 1.26 H (0.87-1.13) CBC 11/02/20 Range/Units 05:20 WBC 8.4 (4.5-11.0) K/mm3 RBC 3.30 L (3.65-5.03) M/mm3 Hgb 9.3 L (11.8-15.2) gm/dl Hct 28.8 L (35.5-45.6) % Plt Count 306 (140-440) K/mm3 Lymph # (Auto) 1.7 (1.2-5.4) K/mm3 [place] # (Auto) 0.7 (0.0-0.8) K/mm3 Eos # (Auto) 0.3 (0.0-0.4) K/mm3 Baso # (Auto) 0.1 (0.0-0.1) K/mm3 Comprehensive Metabolic Panel 04/26/20 Range/Units 05:20 Sodium 139 (137-145) mmol/L Potassium 4.1 (3.6-5.0) mmol/L Chloride 101.8 (98-107) mmol/L Carbon Dioxide 32 H (22-30) mmol/L BUN 15 (9-20) mg/dL Creatinine 1.2 (0.8-1.3) mg/dL Glucose 137 H (75-100) mg/dL Calcium 8.7 (8.4-10.2) mg/dL - Imaging and Cardiology EKG: report reviewed, image reviewed Pharmacologic stress test: report reviewed (04/23/2020 - fixed apical and inferior defects; reversible anterior wall defect) Echo: report reviewed (04/07/2020 showed LV mildly dilated; mod concentric LVH; EF 20-25%; RV mildly dilated; RA mod dilated; mild MR) Cardiac cath: report reviewed (04/26/2020 - no angiographic evidence of significant epicardial coronary disease; EF 35-40%; no evidence of ) - Telemetry EKG Rhythm: Atrial Flutter - EKG Supraventricular dysrhythmia: atrial flutter
--- NOTE | 2020-04-26 18:30 | Progress Note ---
Assessment and Plan (1) Acute coronary syndrome Current Visit: Yes Status: Acute Qualifiers: Chest pain type: unspecified Qualified Code(s): R07.9 - Chest pain, unspecified Plan to address problem: S/p lexiscan MPI stress test today which was abnormal, showed both fixed and reversible defects, EF ~20%. Coronary angiography recommended for definitive diagnosis. Indications, potential risks and benefits of LHC reviewed with pt and he is agreeable to proceed with LHC on 04/26/2020. Convert home Eliquis to heparin gtt for AFib/AFlutter in the interim. Plan to resume Eliquis following LHC. Cont GDMT and volume optimization over the weekend. (2) Hypertensive urgency Current Visit: Yes Status: Acute Plan to address problem: Blood pressure trending up Today blood pressure is 188/100 We will adjust the medications Added hydralazine 25 mg every 8 for afterload reduction Blood pressure controlled (3) Wound of lower extremity Current Visit: No Status: Acute Plan to address problem: Wound care (4) History of atrial fibrillation Current Visit: No Status: Chronic Plan to address problem: Rate is currently controlled. Continue Eliquis (6) Full code status Current Visit: Yes Status: Acute Subjective Date of service: 04/26/20 Principal diagnosis: Acute HFrEF Interval history: 64-year-old male with history of coronary artery disease, atrial fibrillation, hypertension, chronic venous stasis ulcers in both lower extremities comes in for chest pain of 24 hours duration. Chest pain is intermittent. Chest pain is 10 on a scale of 1-10. No exposure to coronavirus. Patient is admitted for evaluation of chest pain. Patient also has a high blood pressure and tachycardia. Symptomatically better today. Day #2 04/24/2020 Lexiscan was abnormal Patient for cardiac cath on 04/26/2020 Day #3 04/25/2020 Patient symptomatically better Patient waiting for left heart catheterization on 04/26/2020 Day #4 04/26/2020 Patient had cardiac cath today t [place] showed LV mildly dilated; mod concentric LVH; EF 20- 25%; RV mildly dilated; RA mod dilated; mild MR) Cardiac cath: report reviewed (04/26/2020 - no angiographic evidence of significant epicardial coronary disease; EF 35-40%; no evidence of ) - Telemetry EKG Rhythm: Atrial Flutter - EKG Supraventricular dysrhythmia: atrial flutter Objective - Constitutional Vitals: Vital Signs - 12hr 04/26/20 04/26/20 04/26/20 07:45 08:00 15:27 Temperature 98.2 F 97.9 F Pulse Rate 85 76 Pulse Rate [ 89 Right Radial] Respiratory 20 18 20 Rate Blood Pressure 162/96 151/91 O2 Sat by Pulse 91 98 98 Oximetry General appearance: Present: no acute distress, well-nourished - EENT Eyes: PERRL, EOM intact ENT: hearing intact, clear oral mucosa Ears: bilateral: normal - Neck Neck: supple, normal ROM - Respiratory Respiratory effort: normal Respiratory: bilateral: CTA - Breasts Breasts: normal - Cardiovascular Heart rate: 78 Rhythm: regular Heart Sounds: Present: S1 & S2. Absent: gallop, rub Extremities: no ischemia, pulses intact, No edema, normal color, Full ROM - Gastrointestinal General gastrointestinal: Present: soft, non-tender, non-distended, normal bowel sounds - Genitourinary Male genitourinary: normal - Integumentary Integumentary: clear, warm, dry - Musculoskeletal Musculoskeletal: 1, strength equal bilaterally - Neurologic Neurologic: moves all extremities - Psychiatric Psychiatric: memory intact, appropriate mood/affect, intact judgment & insight - Allied health notes Allied health notes reviewed: nursing, case management - Labs CBC & Chem 7: 04/27/20 04:45 04/26/20 05:20 Labs: Abnormal lab results 04/25/20 04/25/20 04/26/20 Range/Units 19:20 20:45 05:20 RBC 3.30 L (3.65-5.03) M/mm3 Hgb 9.3 L (11.8-15.2) gm/dl Hct 28.8 L (35.5-45.6) % RDW 15.7 H (13.2-15.2) % [place] % (Auto) 8.1 H (0.0-7.3) % PT (12.2-14.9) Sec. INR (0.87-1.13) Heparin Anti-Xa Level 0.80 H (0.3-0.7) U.I./ml Carbon Dioxide (22-30) mmol/L Glucose (75-100) mg/dL POC Glucose 134 H (70-105) mg/dL 04/26/20 04/26/20 04/26/20 Range/Units 05:20 05:20 08:02 RBC (3.65-5.03) M/mm3 Hgb (11.8-15.2) gm/dl Hct (35.5-45.6) % RDW (13.2-15.2) % [place] % (Auto) (0.0-7.3) % PT 16.1 H (12.2-14.9) Sec. INR 1.26 H (0.87-1.13) Heparin Anti-Xa Level (0.3-0.7) U.I./ml Carbon Dioxide 32 H (22-30) mmol/L Glucose 137 H (75-100) mg/dL POC Glucose 145 H (70-105) mg/dL 04/26/20 04/26/20 Range/Units 11:50 16:20 RBC (3.65-5.03) M/mm3 Hgb (11.8-15.2) gm/dl Hct (35.5-45.6) % RDW (13.2-15.2) % [place] % (Auto) (0.0-7.3) % PT (12.2-14.9) Sec. INR (0.87-1.13) Heparin Anti-Xa Level (0.3-0.7) U.I./ml Carbon Dioxide (22-30) mmol/L Glucose (75-100) mg/dL POC Glucose 154 H 205 H (70-105) mg/dL HEART Score - HEART Score EKG: Non-specific Age: 45-65 Risk factors: 1-2 risk factors Troponin: Troponin T < 0.010 ng/mL (0.00-0.029) 04/23/20 Unknown Troponin: < normal limit
[2020-04-27] MEDS: HYDROmorphone 1 MG/1 ML INJ IV PRN (04:11)
[2020-04-27] MEDS: hydrALAZINE 25 MG TAB PO SCH ×2 (05:24→14:28)
[2020-04-27 05:40] LABS: Hematocrit 29.1 % (35.5-45.6); Hemoglobin 9.3 gm/dl (11.8-15.2)
[2020-04-27] MEDS: PANTOPRAZOLE 40 MG TAB PO SCH (07:15)
[2020-04-27] MEDS: oxyCODONE /ACETAMINOPHEN 5-325MG TAB PO PRN ×2 (07:15→14:28)
[2020-04-27] MEDS ORDERED: FUROSEMIDE 40 MG TAB PO SCH (10:00)
[2020-04-27] MEDS: AMIODARONE 200 MG TAB PO SCH (10:17)
[2020-04-27] MEDS: METOPROLOL TARTRATE 50 MG TAB PO SCH (10:17)
[2020-04-27] MEDS: ASPIRIN EC 325 MG TAB PO SCH (10:17)
[2020-04-27] MEDS: LISINOPRIL 10 MG TAB PO SCH (10:17)
--- NOTE | 2020-04-27 12:33 | Progress Note ---
Assessment and Plan Initiate Lovenox bridging to Coumadin. Continue other present cardiac mgmt. 30 min spent discussing lifestyle modifications, including weight loss, salt and fluid restrictions, with pt. Pt verbalized understanding. Pt may be discharged from a Cardiology perspective. Follow-up with Dr. Saurav Escobar within 1-2 weeks ([phone]). Will also set pt up for appt @ [facility] within 5 days. Pt seen in conjunction with Dr. Saurav Escobar, who agrees with the assessment and plan of care. - Patient Problems (1) Acute HFrEF (heart failure with reduced ejection fraction) Status: Acute (2) Non-ischemic cardiomyopathy Status: Chronic (3) Atrial flutter Status: Chronic Qualifiers: Atrial flutter type: typical Qualified Code(s): I48.3 - Typical atrial flutter (4) Anemia Status: Chronic (5) Chronic venous hypertension (idiopathic) with ulcer of bilateral lower extremity Status: Chronic (6) HTN (hypertension) Status: Chronic Qualifiers: Hypertension type: essential hypertension Qualified Code(s): I10 - Essential (primary) hypertension (7) Morbid obesity due to excess calories Status: Chronic (8) Medical non-compliance Status: Chronic Subjective Date of service: 04/27/20 Principal diagnosis: Acute HFrEF Interval history: S/p LHC yesterday, which revealed angiographically normal coronaries, EF 35-40%. Pt resting comfortably in bed upon exam. He denies chest pain or any additional cardiac complaints. Tele reviewed - AFlutter 80s w/no acute events noted overnight. Objective Last Vital Signs Temp 98.3 F 04/27/20 11:32 Pulse 78 04/27/20 11:32 Resp 20 04/27/20 11:32 BP 160/102 04/27/20 11:32 Pulse Ox 98 04/27/20 11:32 - Physical Examination General: No Apparent Distress HEENT: Positive: EOMI, Normocephaly Neck: Positive: neck supple, trachea midline Cardiac: Positive: Irregularly Regular, S1/S2 Lungs: Positive: clear to auscultation Neuro: Positive: Grossly Intact Abdomen: Positive: Soft, Active Bowel Sounds. Negative: Tender Skin: Negative: Rash Incision: Cardiac Cath Site (Pt refuses exam of groin site; however, per RN, groin site c/d/i - no evidence of bleeding or hematoma) Musculoskeletal: No Pain, Normal Range of Motion Extremities: Present: edema (trace BLE), Other (BLE wounds/dressings in place) - Labs and Meds CBC 04/27/20 Range/Units 04:45 Hgb 9.3 L (11.8-15.2) gm/dl Hct 29.1 L (35.5-45.6) % Plt Count 320 (140-440) K/mm3 - Imaging and Cardiology EKG: report reviewed, image reviewed Pharmacologic stress test: report reviewed (04/23/2020 - multiple defects noted) Echo: report reviewed (04/07/2020 showed LV mildly dilated; mod concentric LVH; EF 20-25%; RV mildly dilated; RA mod dilated; mild MR) Cardiac cath: report reviewed (04/26/2020 - no angiographic evidence of significant epicardial coronary disease; EF 35-40%; no evidence of ) - Telemetry EKG Rhythm: Atrial Flutter - EKG Supraventricular dysrhythmia: atrial flutter
--- NOTE | 2020-04-27 13:25 | Discharge Summary ---
Providers - Providers Date of Admission: 04/23/20 02:29 Date of discharge: 04/27/20 Attending physician: VIKAS DOE 04/23/20 Consult to Cardiac Rehabilitation [CONS] Routine Reason For Exam: Phase I 04/23/20 03:20 Consult to Cardiology [CONS] Routine Consulting Provider: ISAC BILLINGSLEY Reason For Exam: CHEST PAIN 04/23/20 03:27 Consult to Wound/ET Nurse [CONS] Routine Reason For Exam: wound eval- IFTIKHAR LEG ULCERS 04/27/20 09:58 Consult to Wound/ET Nurse [CONS] Routine Reason For Exam: wound eval of leg ulcers Primary care physician: COMPUTER SYSTEM TECHNICIAN Hospitalization Condition: Critical Procedures: LHC Conclusions No angiographic evidence of significant epicardial coronary disease in this right dominant system Moderate global left ventricular hypokinesis, estimated ejection fraction of 35 to 40% No evidence of aortic stenosis Uncontrolled hypertension multiple durations of IV hydralazine given mildly elevated left ventricular end-diastolic pressure these findings are consistent with moderate nonischemic dilated cardiomyopathy likely due to uncontrolled hypertension and advanced hypertensive heart disease. Hospital course: Subjective Date of service: 04/27/20 Principal diagnosis: Acute HFrEF Interval history: 64-year-old male with history of coronary artery disease, atrial fibrillation, hypertension, chronic venous stasis ulcers in both lower extremities comes in for chest pain of 24 hours duration. Chest pain is intermittent. Chest pain is 10 on a scale of 1-10. No exposure to coronavirus. Patient is admitted for evaluation of chest pain. Patient also has a high blood pressure and tachycardia. Symptomatically better today. Day #2 04/24/2020 Lexiscan was abnormal Patient for cardiac cath on 04/26/2020 Day #3 04/25/2020 Patient symptomatically better Patient waiting for left heart catheterization on 04/26/2020 Day #4 04/26/2020 Patient had cardiac cath today t Vincentian showed LV mildly dilated; mod concentric LVH; EF 20- 25%; RV mildly dilated; RA mod dilated; mild MR) Cardiac cath: report reviewed (04/26/2020 - no angiographic evidence of significant epicardial coronary disease; EF 35-40%; no evidence of ) 04/27/2020 Patient had a normal cath Patient had bilateral leg wounds Home health wound care arranged - Telemetry EKG Rhythm: Atrial Flutter - EKG Supraventricular dysrhythmia: atrial flutter (1) acute heart failure with reduced ejection fraction Current Visit: Yes Status: Acute Qualifiers: Chest pain type: unspecified Qualified Code(s): R07.9 - Chest pain, unspecified Plan to address problem: S/p lexiscan MPI stress test today which was abnormal, showed both fixed and reversible defects, EF ~20%. Coronary angiography recommended for definitive diagnosis. Coronary angiography was normal indications, potential risks and benefits of LHC reviewed with pt and he is agreeable to proceed with LHC on 04/26/2020. Convert home Eliquis to heparin gtt for AFib/AFlutter in the interim. Plan to resume Eliquis following LHC. Cont GDMT and volume optimization over the weekend. Cath negative Patient to be discharged on Lasix and potassium Patient counseled about reducing his weight (2) Hypertensive urgency Current Visit: Yes Status: Acute Plan to address problem: Blood pressure trending up Today blood pressure is 188/100 We will adjust the medications Added hydralazine 25 mg every 8 for afterload reduction Blood pressure controlled (3) Wound of lower extremity Current Visit: No Status: Acute Plan to address problem: Wound care (4)Atrial fibrillation with RVR Current Visit: No Status: Chronic Plan to address problem: Rate is currently controlled. Continue Eliquis (6) Stasis ulcers Wound care and regular dressings Disposition: - TO HOME OR SELFCARE - Discharge Diagnoses (1) Acute HFrEF (heart failure with reduced ejection fraction) Status: Acute (2) Hypertensive urgency Status: Acute (3) Atrial fibrillation and flutter Status: Chronic (4) HTN (hypertension) Status: Chronic Qualifiers: Hypertension type: essential hypertension Qualified Code(s): I10 - Essential (primary) hypertension (5) Morbid obesity due to excess calories Status: Chronic (6) PVD (peripheral vascular disease) Status: Chronic Core Measure Documentation - Palliative Care Palliative Care/ Comfort Measures: Not Applicable - Core Measures Any of the following diagnoses?: none Exam - Constitutional Vitals: Temp Pulse Resp BP Pulse Ox 98.3 F 78 20 160/102 98 04/27/20 11:32 04/27/20 11:32 04/27/20 11:32 04/27/20 11:32 04/27/20 11:32 General appearance: Present: no acute distress, well-nourished - EENT Eyes: Present: PERRL ENT: hearing intact, clear oral mucosa - Neck Neck: Present: supple, normal ROM - Respiratory Respiratory effort: normal Respiratory: bilateral: CTA - Cardiovascular Heart rate: 78 Rhythm: irregularly irregular Heart Sounds: Present: S1 & S2. Absent: rub, click - Extremities Extremities: no ischemia, pulses intact, pulses symmetrical, No edema Extremity abnormal: edema, other (Stasis ulcers both lower extremities) Peripheral Pulses: within normal limits - Abdominal General gastrointestinal: Present: soft, non-tender, non-distended, normal bowel sounds Male genitourinary: Present: normal - Rectal Rectal Exam: deferred - Integumentary Integumentary: Present: clear, warm, dry - Musculoskeletal Musculoskeletal: gait normal, strength equal bilaterally - Psychiatric Psychiatric: appropriate mood/affect, intact judgment & insight - Neurologic Neurologic: CNII-XII intact, moves all extremities - Allied Health Allied health notes reviewed: nursing, case management Plan Activity: no restrictions Diet: low fat, low cholesterol, low salt Follow up with: KASEY SHINE MD [Primary Care Provider] - 3-5 Days ISAC BILLINGSLEY MD [Staff Physician] - 7 Days
[2020-04-27] MEDS ORDERED: WARFARIN 5 MG TAB PO SCH (17:00)
[2020-04-27 17:04] VITALS: BP 158/94
[2020-04-27] MEDS ORDERED: ENOXAPARIN 80 MG/0.8 ML INJ SUB-Q SCH (22:00)
[2020-04-27] MEDS ORDERED: ENOXAPARIN 100 MG/1 ML INJ SUB-Q SCH (22:00)
== END 2020-04-27 18:48 | disposition home or self-care (01) | DRG 286 ==
LOC: ED 22:35 → 4A 04-23 02:29 → OBSVTOIN 04-23 02:29
PROVIDERS: ADMIT Internal Medicine Geriatric Medicine; ATTEND Internal Medicine
PROC: 4A023N7 Measurement of Cardiac Sampling and Pressure, Left Heart, Percutaneous Approach (ICD-10-PCS; principal; 2020-04-26)
PROC: B2111ZZ Fluoroscopy of Multiple Coronary Arteries using Low Osmolar Contrast (ICD-10-PCS; 2020-04-26)
PROC: B2151ZZ Fluoroscopy of Left Heart using Low Osmolar Contrast (ICD-10-PCS; 2020-04-26)
DX: I11.0 Hypertensive heart disease with heart failure (principal); I50.21 Acute systolic (congestive) heart failure; I48.92 Unspecified atrial flutter; Z68.41 Body mass index [BMI] 40.0-44.9, adult; I87.313 Chronic venous hypertension (idiopathic) with ulcer of bilateral lower extremity; L97.829 Non-pressure chronic ulcer of other part of left lower leg with unspecified severity; L97.819 Non-pressure chronic ulcer of other part of right lower leg with unspecified severity; I16.0 Hypertensive urgency; E66.01 Morbid (severe) obesity due to excess calories; I42.8 Other cardiomyopathies; I42.0 Dilated cardiomyopathy; I25.10 Atherosclerotic heart disease of native coronary artery without angina pectoris; I73.9 Peripheral vascular disease, unspecified; I48.91 Unspecified atrial fibrillation; E78.5 Hyperlipidemia, unspecified; D64.9 Anemia, unspecified; Z91.14 Patient's other noncompliance with medication regimen
CPT/HCPCS: 36415; 71045; 78452; 80048; 80061; 82962; 84484; 85014; 85018; 85025; 85049; 85520; 85610; 85730; 90471; 90686; 93005; 93017; 93458; 94760; 96372; 96374; 96375; G0378; A9270-GY; A9502; C1894; J0360; J1170; J1644; J1885; J1940; J2250; J2270; J2785; J3010; J7040; Q9967

== ENCOUNTER 2020-05-04 10:01 | Inpatient (IN) | payer OTHER ==
[2020-05-04] MEDS ORDERED: oxyCODONE /ACETAMINOPHEN 5-325MG TAB ONE (13:28)
[2020-05-04] MEDS ORDERED: oxyCODONE /ACETAMINOPHEN 5-325MG TAB PO ONE (13:36)
[2020-05-04 14:05] LABS: Basophils # (Auto) 0.1 K/mm3 (0.0-0.1); Basophils % (Auto) 1.3 % (0.0-1.8); Eosinophils # (Auto) 0.2 K/mm3 (0.0-0.4); Eosinophils % (Auto) 2.2 % (0.0-4.3); Hematocrit 29.1 % (35.5-45.6); Hemoglobin 9.3 gm/dl (11.8-15.2); Lymphocytes # (Auto) 1.4 K/mm3 (1.2-5.4); Lymphocytes % (Auto) 15.8 % (13.4-35.0); Mean Corpuscular HGB Conc 32 % (32-34); Mean Corpuscular Volume 87 fl (84-94); Monocytes # (Auto) 0.7 K/mm3 (0.0-0.8); Monocytes % (Auto) 8.3 % (0.0-7.3); Platelet Count 423 K/mm3 (140-440); Red Blood Count 3.37 M/mm3 (3.65-5.03)
[2020-05-04 14:21] LABS: Alanine Aminotransferase 24 units/L (7-56); Albumin 3.4 g/dL (3.9-5); BUN/Creatinine Ratio 13; Blood Urea Nitrogen 17 mg/dL (9-20); Hemolysis Index 0
--- NOTE | 2020-05-04 15:26 | XRay Report ---
RIGHT TIBIA-FIBULA 2 VIEW(S) INDICATION / CLINICAL INFORMATION: chronic stasis ulcer lower leg COMPARISON: None available. FINDINGS: BONES / JOINT(S): No acute fracture or subluxation. No significant arthritis. No osseous destruction. SOFT TISSUES: Large soft tissue ulceration on the lateral aspect of mid to distal right lower leg. Mo derate size soft tissue ulceration on the medial aspect of the distal right lower leg over the latera l malleolus. Several areas of sheetlike soft tissue calcification. No soft tissue gas. ADDITIONAL FINDINGS: None. IMPRESSION: 1. Lower leg soft tissue ulcerations. No radiographic evidence of osteomyelitis. Signer Name: Arian Mcnally MD Signed: 05/04/2020 3:21 PM Workstation Name: [id number]
[2020-05-04] MEDS ORDERED: VANCOMYCIN/NS 1 GM/250 ML 1 GM/250 ML BAG IV ONE (16:45)
[2020-05-04] MEDS ORDERED: ONDANSETRON 4 MG/2 ML INJ IV ONE (16:46)
[2020-05-04] MEDS ORDERED: MORPHINE 4 MG/1 ML INJ IV ONE (16:46)
--- NOTE | 2020-05-04 16:51 | Emergency Department Report ---
ED General Adult HPI - General Chief complaint: Wound/Laceration Stated complaint: WOUND ON LEG Time Seen by Provider: 05/04/20 16:36 Source: patient Mode of arrival: Ambulatory Limitations: No Limitations - History of Present Illness Initial comments: Patient is 64 years old morbidly obese male with history of coronary artery disease, congestive heart failure and chronic bilateral lower extremities ulceration with multiple department before last 1 was [address] Grant. Patient presented to the ER complaining of significant pain and disch arge from the right ankle ulcer. Patient describes the discharge as greenish every time he but it will be soaked immediately. Patient denies any fever or chills. Patient denied any chest pain, shortness of breath, nausea or vomiting. Severity scale (0 -10): 10 - Related Data Previous Rx's Medication Instructions Recorded Last Taken Type Amiodarone [Cordarone 200 MG TAB] 200 mg PO BID 30 Days #60 tablet 04/27/20 Unknown Rx AtorvaSTATin [Lipitor] 40 mg PO QHS #30 tablet 04/27/20 Unknown Rx Furosemide [Lasix TAB] 40 mg PO QDAY #30 tablet 04/27/20 Unknown Rx Furosemide [Lasix TAB] 40 mg PO QDAY 30 Days #30 04/27/20 Unknown Rx Gabapentin 300 mg PO TID #90 04/27/20 Unknown Rx ISOSORBIDE MONOnitrate [Imdur ER] 30 mg PO QDAY #30 tablet 04/27/20 Unknown Rx Ibuprofen [Motrin 800 MG tab] 800 mg PO BID PRN #60 04/27/20 Unknown Rx Metoprolol [Lopressor TAB] 100 mg PO BID #60 tablet 04/27/20 Unknown Rx Pantoprazole [Protonix TAB] 40 mg PO QDAC #30 tablet 04/27/20 Unknown Rx Potassium Chloride [K-Dur] 20 meq PO QDAY #30 tablet 04/27/20 Unknown Rx Warfarin [Coumadin] 7.5 mg PO DAILY@1700 30 Days #30 04/27/20 Unknown Rx tablet lisinopriL [Zestril TAB] 20 mg PO BID #60 tablet 04/27/20 Unknown Rx Allergies Allergy/AdvReac Type Severity Reaction Status Date / Time No Known Allergies Allergy Unverified 10/18/17 01:33 ED Review of Systems ROS: Stated complaint: WOUND ON LEG Other details as noted in HPI Comment: All other systems reviewed and negative Constitutional: denies: chills, fever Respiratory: denies: cough, shortness of breath Cardiovascular: denies: chest pain, palpitations Gastrointestinal: denies: abdominal pain, nausea, vomiting, diarrhea, constipation, hematemesis, hematochezia Musculoskeletal: denies: back pain Neurological: denies: headache, weakness, numbness, paresthesias, confusion ED Past Medical Hx - Past Medical History Previous Medical History?: Yes Hx Hypertension: Yes Hx Heart Attack/AMI: Yes Hx Congestive Heart Failure: No Hx Diabetes: No Hx Deep Vein Thrombosis: No Hx Arthritis: Yes Hx Asthma: No Hx COPD: No Hx HIV: No Additional medical history: A fib. Ulcers on legs - Surgical History Past Surgical History?: Yes Hx Coronary Stent: No Hx Pacemaker: No Hx Internal Defibrillator: No Additional Surgical History: Hernia repair - Social History Smoking Status: Never Smoker Substance Use Type: None - Medications Home Medications: Home Medications Medication Instructions Recorded Confirmed Last Taken Type Amiodarone [Cordarone 200 MG TAB] 200 mg PO BID 30 Days #60 tablet 04/27/20 Unknown Rx AtorvaSTATin [Lipitor] 40 mg PO QHS #30 tablet 04/27/20 Unknown Rx Furosemide [Lasix TAB] 40 mg PO QDAY #30 tablet 04/27/20 Unknown Rx Furosemide [Lasix TAB] 40 mg PO QDAY 30 Days #30 04/27/20 Unknown Rx Gabapentin 300 mg PO TID #90 04/27/20 Unknown Rx ISOSORBIDE MONOnitrate [Imdur ER] 30 mg PO QDAY #30 tablet 04/27/20 Unknown Rx Ibuprofen [Motrin 800 MG tab] 800 mg PO BID PRN #60 04/27/20 Unknown Rx Metoprolol [Lopressor TAB] 100 mg PO BID #60 tablet 04/27/20 Unknown Rx Pantoprazole [Protonix TAB] 40 mg PO QDAC #30 tablet 04/27/20 Unknown Rx Potassium Chloride [K-Dur] 20 meq PO QDAY #30 tablet 04/27/20 Unknown Rx Warfarin [Coumadin] 7.5 mg PO DAILY@1700 30 Days #30 04/27/20 Unknown Rx tablet lisinopriL [Zestril TAB] 20 mg PO BID #60 tablet 04/27/20 Unknown Rx ED Physical Exam - General Limitations: No Limitations General appearance: alert, in no apparent distress - Head Head exam: Present: atraumatic, normocephalic, normal inspection - Eye Eye exam: Present: normal appearance - ENT ENT exam: Present: normal exam, normal orophraynx, mucous membranes moist - Neck Neck exam: Present: normal inspection, full ROM. Absent: tenderness, meningismus - Respiratory Respiratory exam: Present: normal lung sounds bilaterally - Cardiovascular Cardiovascular Exam: Present: regular rate, normal rhythm, normal heart sounds - GI/Abdominal GI/Abdominal exam: Present: soft, normal bowel sounds. Absent: distended, tenderness, guarding, rebound, rigid, mass, bruit, pulsatile mass, hernia - Extremities Exam Extremities exam: Present: normal capillary refill. Absent: tenderness - Expanded Lower Extremity Exam Right Knee exam: Present: normal inspection, full ROM. Absent: tenderness Lower Leg exam: Present: tenderness, swelling, erythema Ankle exam: Present: tenderness, swelling, erythema Neuro vascular tendon exam: Present: no vascular compromise - Back Exam Back exam: Present: normal inspection - Neurological Exam Neurological exam: Present: alert, oriented X3, CN II-XII intact - Psychiatric Psychiatric exam: Present: normal mood - Skin Skin exam: Present: warm, intact, normal color ED Course Vital Signs 05/04/20 05/04/20 10:20 15:20 Temperature 97.9 F 97.9 F Pulse Rate 78 77 Respiratory 24 Rate Blood Pressure 149/84 161/92 [Right] O2 Sat by Pulse 100 97 Oximetry ED Medical Decision Making - Lab Data Result diagrams: 05/04/20 13:40 05/04/20 13:40 - Radiology Data Radiology results: report reviewed - Medical Decision Making Patient is 64 years old morbidly obese male with history of coronary artery disease, congestive heart failure and chronic bilateral lower extremities ulceration with multiple department before last 1 was [address] Grant. Patient presented to the ER complaining of significant pain and discharge from the right ankle ulcer. Patient describes the discharge as greenish every time he but it will be soaked immediately. Patient denies any fever or chills. Patient denied any chest pain, shortness of breath, nausea or vomiting. Labs reviewed and is unremarkable. X-ray of the hip and hip on the right side is negative for obvious osteomyelitis. Patient started on vancomycin. I discussed the patient with Dr. Grant who advised admit the patient to the hospitalist for wound debridement in the morning. I discussed the patient with Dr. Siddiqui, he agreed to admit the patient to medical service for further management. Critical care attestation.: If time is entered above; I have spent that time in minutes in the direct care of this critically ill patient, excluding procedure time. ED Disposition Clinical Impression: Infected wound Disposition: OP ADMIT IP TO THIS HOSP Is pt being admited?: Yes Condition: Stable Referrals: PRIMARY CARE, [Primary Care Provider] - 3-5 Days
--- NOTE | 2020-05-04 21:38 | History and Physical Report ---
History of Present Illness Date of examination: 05/04/20 Date of admission: 05/04/20 17:52 Chief complaint: Bilateral leg ulcers History of present illness: Patient is 64 years old morbidly obese male with history of coronary artery disease, congestive heart failure and chronic bilateral lower extremities ulceration with multiple department before last 1 was [address] Grant. Patient presented to the ER complaining of significant pain and discharge from the right ankle ulcer. Patient describes the discharge as greenish every time he but it will be soaked immediately. Patient denies any fever or chills. Patient denied any chest pain, shortness of breath, nausea or vomiting. - Past Medical History Previous Medical History?: Yes Hx Hypertension: Yes Hx Heart Attack/AMI: Yes Hx Arthritis: Yes Additional medical history: A fib. Ulcers on legs - Surgical History Past Surgical History?: Yes Additional Surgical History: Hernia repair - Social History Smoking Status: Never Smoker Substance Use Type: None - Medications Home Medications: Home Medications Medication Instructions Recorded Confirmed Last Taken Type Amiodarone [Cordarone 200 MG TAB] 200 mg PO BID 30 Days #60 tablet 04/27/20 Unknown Rx AtorvaSTATin [Lipitor] 40 mg PO QHS #30 tablet 04/27/20 Unknown Rx Furosemide [Lasix TAB] 40 mg PO QDAY #30 tablet 04/27/20 Unknown Rx Furosemide [Lasix TAB] 40 mg PO QDAY 30 Days #30 04/27/20 Unknown Rx Gabapentin 300 mg PO TID #90 04/27/20 Unknown Rx ISOSORBIDE MONOnitrate [Imdur ER] 30 mg PO QDAY #30 tablet 04/27/20 Unknown Rx Ibuprofen [Motrin 800 MG tab] 800 mg PO BID PRN #60 04/27/20 Unknown Rx Metoprolol [Lopressor TAB] 100 mg PO BID #60 tablet 04/27/20 Unknown Rx Pantoprazole [Protonix TAB] 40 mg PO QDAC #30 tablet 04/27/20 Unknown Rx Potassium Chloride [K-Dur] 20 meq PO QDAY #30 tablet 04/27/20 Unknown Rx Warfarin [Coumadin] 7.5 mg PO DAILY@1700 30 Days #30 04/27/20 Unknown Rx tablet lisinopriL [Zestril TAB] 20 mg PO BID #60 tablet 04/27/20 Unknown Rx Review of Systems ROS: Stated complaint: WOUND ON LEG Other details as noted in HPI Comment: All other systems reviewed and negative Constitutional: denies: chills, fever Respiratory: denies: cough, shortness of breath Cardiovascular: denies: chest pain, palpitations Gastrointestinal: denies: abdominal pain, nausea, vomiting, diarrhea, const ipation, hematemesis, hematochezia Musculoskeletal: denies: back pain Neurological: denies: headache, weakness, numbness, paresthesias, confusion Medications and Allergies Allergies Allergy/AdvReac Type Severity Reaction Status Date / Time No Known Allergies Allergy Unverified 10/18/17 01:33 Home Medications Medication Instructions Recorded Confirmed Last Taken Type Amiodarone [Cordarone 200 MG TAB] 200 mg PO BID 30 Days #60 tablet 04/27/20 05/05/20 Unknown Rx AtorvaSTATin [Lipitor] 40 mg PO QHS #30 tablet 04/27/20 05/05/20 Unknown Rx Furosemide [Lasix TAB] 40 mg PO QDAY #30 tablet 04/27/20 05/05/20 Unknown Rx Furosemide [Lasix TAB] 40 mg PO QDAY 30 Days #30 04/27/20 05/05/20 Unknown Rx Gabapentin 300 mg PO TID #90 04/27/20 05/05/20 Unknown Rx ISOSORBIDE MONOnitrate [Imdur ER] 30 mg PO QDAY #30 tablet 04/27/20 05/05/20 Unknown Rx Ibuprofen [Motrin 800 MG tab] 800 mg PO BID PRN #60 04/27/20 05/05/20 Unknown Rx Metoprolol [Lopressor TAB] 100 mg PO BID #60 tablet 04/27/20 05/05/20 Unknown Rx Pantoprazole [Protonix TAB] 40 mg PO QDAC #30 tablet 04/27/20 05/05/20 Unknown Rx Potassium Chloride [K-Dur] 20 meq PO QDAY #30 tablet 04/27/20 05/05/20 Unknown Rx Warfarin [Coumadin] 7.5 mg PO DAILY@1700 30 Days #30 04/27/20 05/05/20 Unknown Rx tablet lisinopriL [Zestril TAB] 20 mg PO BID #60 tablet 04/27/20 05/05/20 Unknown Rx Exam - Constitutional Vitals: Temp Pulse Resp BP Pulse Ox 97.9 F 81 16 161/92 95 05/04/20 15:20 05/04/20 19:01 05/04/20 19:01 05/04/20 15:20 05/04/20 19:01 General appearance: Present: no acute distress, well-nourished - EENT Eyes: Present: PERRL ENT: hearing intact, clear oral mucosa - Neck Neck: Present: supple, normal ROM - Respiratory Respiratory effort: normal Respiratory: bilateral: CTA - Cardiovascular Heart rate: 78 Heart Sounds: Present: S1 & S2. Absent: rub, click - Extremities Extremities: pulses symmetrical, No edema, abnormal (Bilateral lower extremity ulcers) Extremity abnormal: other (Bilateral lower extremity ulcers) Peripheral Pulses: within normal limits - Abdominal General gastrointestinal: Present: soft, non-tender, non-distended, normal bowel sounds Male genitourinary: Present: normal - Integumentary Integumentary: Present: clear, warm, dry - Musculoskeletal Musculoskeletal: gait normal, strength equal bilaterally - Psychiatric Psychiatric: appropriate mood/affect, intact judgment & insight - Neurologic Neurologic: CNII-XII intact, moves all extremities Results - Labs CBC & Chem 7: 05/04/20 13:40 05/06/20 04:58 Labs: Laboratory Last Values WBC 8.7 K/mm3 (4.5-11.0) 05/04/20 13:40 RBC 3.37 M/mm3 (3.65-5.03) L 05/04/20 13:40 Hgb 9.3 gm/dl (11.8-15.2) L 05/04/20 13:40 Hct 29.1 % (35.5-45.6) L 05/04/20 13:40 MCV 87 fl (84-94) 05/04/20 13:40 MCH 28 pg (28-32) 05/04/20 13:40 MCHC 32 % (32-34) 05/04/20 13:40 RDW 16.0 % (13.2-15.2) H 05/04/20 13:40 Plt Count 423 K/mm3 (140-440) 05/04/20 13:40 Lymph % (Auto) 15.8 % (13.4-35.0) 05/04/20 13:40 [place] % (Auto) 8.3 % (0.0-7.3) H 05/04/20 13:40 Eos % (Auto) 2.2 % (0.0-4.3) 05/04/20 13:40 Baso % (Auto) 1.3 % (0.0-1.8) 05/04/20 13:40 Lymph # (Auto) 1.4 K/mm3 (1.2-5.4) 05/04/20 13:40 [place] # (Auto) 0.7 K/mm3 (0.0-0.8) 05/04/20 13:40 Eos # (Auto) 0.2 K/mm3 (0.0-0.4) 05/04/20 13:40 Baso # (Auto) 0.1 K/mm3 (0.0-0.1) 05/04/20 13:40 Seg Neutrophils % 72.4 % (40.0-70.0) H 05/04/20 13:40 Seg Neutrophils # 6.3 K/mm3 (1.8-7.7) 05/04/20 13:40 Sodium 139 mmol/L (137-145) 05/04/20 13:40 Potassium 4.3 mmol/L (3.6-5.0) 05/04/20 13:40 Chloride 101.9 mmol/L (98-107) 05/04/20 13:40 Carbon Dioxide 31 mmol/L (22-30) H 05/04/20 13:40 Anion Gap 10 mmol/L 05/04/20 13:40 BUN 17 mg/dL (9-20) 05/04/20 13:40 Creatinine 1.3 mg/dL (0.8-1.3) 05/04/20 13:40 Estimated GFR > 60 ml/min 05/04/20 13:40 BUN/Creatinine Ratio 13 % 05/04/20 13:40 Glucose 222 mg/dL (75-100) H 05/04/20 13:40 Calcium 9.0 mg/dL (8.4-10.2) 05/04/20 13:40 Total Bilirubin 0.30 mg/dL (0.1-1.2) 05/04/20 13:40 AST 15 units/L (5-40) 05/04/20 13:40 ALT 24 units/L (7-56) 05/04/20 13:40 Alkaline Phosphatase 76 units/L (35-129) 05/04/20 13:40 Total Protein 7.2 g/dL (6.3-8.2) 05/04/20 13:40 Albumin 3.4 g/dL (3.9-5) L 05/04/20 13:40 Albumin/Globulin Ratio 0.9 % 05/04/20 13:40 BMP 05/06/20 04:58 Sodium 139 Potassium 4.6 Chloride 101.5 Carbon Dioxide 32 H BUN 11 Creatinine 1.2 Glucose 149 H Calcium 8.6 Microbiology: Microbiology 05/04/20 17:18 Peripheral/Venous Blood Culture - Preliminary Culture in Progress 05/04/20 17:12 Peripheral/Venous Blood Culture - Preliminary Culture in Progress Assessment and Plan Advance Directives: Yes (Full code) VTE prophylaxis?: Chemical Plan of care discussed with patient/family: Yes - Patient Problems (1) Bilateral lower leg cellulitis Current Visit: Yes Status: Acute Plan to address problem: IV Unasyn and vancomycin for now Surgery consult requested (2) Chronic venous hypertension (idiopathic) with ulcer of bilateral lower extremity Current Visit: No Status: Chronic Plan to address problem: Vascular surgery consult requested (3) PVD (peripheral vascular disease) Current Visit: No Status: Chronic (4) HTN (hypertension) Current Visit: No Status: Chronic Qualifiers: Hypertension type: essential hypertension Qualified Code(s): I10 - Essential (primary) hypertension (5) Peripheral neuropathy Current Visit: Yes Status: Chronic Plan to address problem: Continue gabapentin (6) DVT prophylaxis Current Visit: No Status: Acute Plan to address problem: On heparin and GI prophylaxis
[2020-05-04] MEDS ORDERED: VANCOMYCIN PHARMACY TO DOSE IV SCH (22:00)
[2020-05-04] MEDS ORDERED: FUROSEMIDE 20 MG TAB ONE (23:39)
[2020-05-04] MEDS ORDERED: LISINOPRIL 20 MG TAB ONE (23:39)
[2020-05-04] MEDS ORDERED: METOPROLOL SUCCINATE XL 100 MG TAB PO ONE (23:39)
[2020-05-04] MEDS: FUROSEMIDE 40 MG TAB PO SCH (23:46)
[2020-05-04] MEDS: LISINOPRIL 20 MG TAB PO SCH (23:46)
[2020-05-04] MEDS ORDERED: HYDROmorphone 1 MG/1 ML INJ ONE (23:51)
[2020-05-04] MEDS ORDERED: HYDROmorphone 2 MG/1 ML INJ IV ONE (23:54)
[2020-05-05] MEDS: METOPROLOL TARTRATE 100 MG TAB PO SCH ×3 (00:06→21:10)
[2020-05-05] MEDS: AMIODARONE 200 MG TAB PO SCH ×3 (00:06→21:10)
[2020-05-05] MEDS: AMPICILLIN/SULBACTA 3GM/100ML 3 GM/100 ML BAG IV SCH ×4 (01:14→18:30)
[2020-05-05] MEDS: VANCOMYCIN 2,000 MG in SODIUM CHLORIDE 0.9% 500 ML 500 ML IV SCH ×2 (01:14→12:07)
[2020-05-05] MEDS: IBUPROFEN 800 MG TAB PO PRN ×2 (03:13→21:11)
[2020-05-05] MEDS ORDERED: NON-FORMULARY EACH (Gabapentin 300 MG) PO SCH (08:00)
[2020-05-05] MEDS: GABAPENTIN 300 MG CAP PO SCH ×3 (09:23→21:10)
[2020-05-05] MEDS: PANTOPRAZOLE 40 MG TAB PO SCH (09:23)
[2020-05-05] MEDS: POTASSIUM CHLORIDE ER 20 MEQ TAB PO SCH (09:23)
[2020-05-05] MEDS: FUROSEMIDE 40 MG TAB PO SCH (09:24)
[2020-05-05] MEDS: LISINOPRIL 20 MG TAB PO SCH ×2 (09:24→21:10)
[2020-05-05 11:06] LABS: INR 1.14 (0.87-1.13)
--- NOTE | 2020-05-05 12:53 | Consultation ---
History of Present Illness Consult date: 05/05/20 - History of present illness History of present illness: 64 yo male well known to me from Wound clinic and his right leg wounds Medications and Allergies Allergies Allergy/AdvReac Type Severity Reaction Status Date / Time No Known Allergies Allergy Unverified 10/18/17 01:33 Home Medications Medication Instructions Recorded Confirmed Last Taken Type Amiodarone [Cordarone 200 MG TAB] 200 mg PO BID 30 Days #60 tablet 04/27/20 05/05/20 Unknown Rx AtorvaSTATin [Lipitor] 40 mg PO QHS #30 tablet 04/27/20 05/05/20 Unknown Rx Furosemide [Lasix TAB] 40 mg PO QDAY #30 tablet 04/27/20 05/05/20 Unknown Rx Furosemide [Lasix TAB] 40 mg PO QDAY 30 Days #30 04/27/20 05/05/20 Unknown Rx Gabapentin 300 mg PO TID #90 04/27/20 05/05/20 Unknown Rx ISOSORBIDE MONOnitrate [Imdur ER] 30 mg PO QDAY #30 tablet 04/27/20 05/05/20 Unknown Rx Ibuprofen [Motrin 800 MG tab] 800 mg PO BID PRN #60 04/27/20 05/05/20 Unknown Rx Metoprolol [Lopressor TAB] 100 mg PO BID #60 tablet 04/27/20 05/05/20 Unknown Rx Pantoprazole [Protonix TAB] 40 mg PO QDAC #30 tablet 04/27/20 05/05/20 Unknown Rx Potassium Chloride [K-Dur] 20 meq PO QDAY #30 tablet 04/27/20 05/05/20 Unknown Rx Warfarin [Coumadin] 7.5 mg PO DAILY@1700 30 Days #30 04/27/20 05/05/20 Unknown Rx tablet lisinopriL [Zestril TAB] 20 mg PO BID #60 tablet 04/27/20 05/05/20 Unknown Rx Active Meds: Active Medications Amiodarone HCl (Cordarone) 200 mg PO BID [facility] Last Admin: 05/05/20 09:23 Dose: 200 mg Documented by: Atorvastatin Calcium (Lipitor) 40 mg PO QHS [facility] Last Admin: 05/04/20 23:46 Dose: 40 mg Documented by: Furosemide (Lasix) 40 mg PO QDAY [facility] Last Admin: 05/05/20 09:24 Dose: 40 mg Documented by: Gabapentin (Gabapentin) 300 mg PO TID [facility] Last Admin: 05/05/20 09:23 Dose: 300 mg Documented by: Ampicillin Sodium/Sulbactam Sodium (Unasyn/Ns 3 Gm/100 Ml) 3 gm in 100 mls @ 100 mls/hr IV Q6HR [facility]; Protocol Last Admin: 05/05/20 12:07 Dose: 100 mls/hr Documented by: Vancomycin HCl 2,000 mg/ (Sodium Chloride) 540 mls @ 250 mls/hr IV Q12H [facility] Last Admin: 05/05/20 12:07 Dose: 250 mls/hr Documented by: Ibuprofen (Ibuprofen) 800 mg PO BID PRN PRN Reason: Pain, Mild (1-3) Last Admin: 05/05/20 03:13 Dose: 800 mg Documented by: Isosorbide Mononitrate (Imdur) 30 mg PO QDAY [facility] Last Admin: 05/05/20 09:24 Dose: 30 mg Documented by: Lisinopril (Zestril) 20 mg PO BID [facility] Last Admin: 05/05/20 09:24 Dose: 20 mg Documented by: Metoprolol Tartrate (Metoprolol) 100 mg PO BID [facility] Last Admin: 05/05/20 09:24 Dose: 100 mg Documented by: Pantoprazole Sodium (Protonix) 40 mg PO QDAC [facility] Last Admin: 05/05/20 09:23 Dose: 40 mg Documented by: Potassium Chloride (K-Dur) 20 meq PO QDAY [facility] Last Admin: 05/05/20 09:23 Dose: 20 meq Documented by: Warfarin Sodium (Coumadin) 7.5 mg PO DAILY@1700 [facility]; Protocol Review of Systems All systems: negative (none) Exam Vital Signs Temp Pulse BP Pulse Ox 97.9 F 78 149/84 100 05/04/20 10:20 05/04/20 10:20 05/04/20 10:20 05/04/20 10:20 - General physical appearance Positive: well developed, well nourished, no distress - Eyes Positive: PERRL, normal occular movement - ENT Positive: normal pinna, normal nares, normal mucosa, no hearing loss, no congestion - Neck Positive: no masses, no bruits, trachea midline, no venous distension - Respiratory Positive: normal expansion, normal respiratory effort, clear to auscultation - Cardiovascular Rhythm: regular Heart Sounds: Present: S1 & S2. Absent: rub, click - Extremities Extremities: no ischemia, pulses symmetrical, No edema - Breasts Breasts: normal, no mass, no skin changes - Abdomen Abdomen: Present: soft, bowel sounds normal. Absent: tender, distended Hernia: none - Genitourinary Male Genitourinary: deferred - Integumentary no rash, no growths, other (There are venous stasis type ulcerations of the right medial and lateral leg. ) - Neurologic Neurologic: alert and oriented to time, place and person, motor strength and sensation are grossly intact - Musculoskeletal normal gait, normal posture - Psychiatric Psychiatric: appropriate mood/affect, intact judgment & insight Results - Labs 05/04/20 13:40 05/04/20 13:40 Abnormal lab results 05/04/20 05/04/20 05/05/20 Range/Units 13:40 13:40 09:37 RBC 3.37 L (3.65-5.03) M/mm3 Hgb 9.3 L (11.8-15.2) gm/dl Hct 29.1 L (35.5-45.6) % RDW 16.0 H (13.2-15.2) % [place] % (Auto) 8.3 H (0.0-7.3) % Seg Neutrophils % 72.4 H (40.0-70.0) % INR 1.14 H (0.87-1.13) Carbon Dioxide 31 H (22-30) mmol/L Glucose 222 H (75-100) mg/dL Albumin 3.4 L (3.9-5) g/dL Diabetes panel 05/04/20 Range/Units 13:40 Sodium 139 (137-145) mmol/L Potassium 4.3 (3.6-5.0) mmol/L Chloride 101.9 (98-107) mmol/L Carbon Dioxide 31 H (22-30) mmol/L BUN 17 (9-20) mg/dL Creatinine 1.3 (0.8-1.3) mg/dL Glucose 222 H (75-100) mg/dL Calcium 9.0 (8.4-10.2) mg/dL AST 15 (5-40) units/L ALT 24 (7-56) units/L Alkaline Phosphatase 76 (35-129) units/L Total Protein 7.2 (6.3-8.2) g/dL Albumin 3.4 L (3.9-5) g/dL Calcium panel 05/04/20 Range/Units 13:40 Calcium 9.0 (8.4-10.2) mg/dL Albumin 3.4 L (3.9-5) g/dL Pituitary panel 05/04/20 Range/Units 13:40 Sodium 139 (137-145) mmol/L Potassium 4.3 (3.6-5.0) mmol/L Chloride 101.9 (98-107) mmol/L Carbon Dioxide 31 H (22-30) mmol/L BUN 17 (9-20) mg/dL Creatinine 1.3 (0.8-1.3) mg/dL Glucose 222 H (75-100) mg/dL Calcium 9.0 (8.4-10.2) mg/dL Adrenal panel 05/04/20 Range/Units 13:40 Sodium 139 (137-145) mmol/L Potassium 4.3 (3.6-5.0) mmol/L Chloride 101.9 (98-107) mmol/L Carbon Dioxide 31 H (22-30) mmol/L BUN 17 (9-20) mg/dL Creatinine 1.3 (0.8-1.3) mg/dL Glucose 222 H (75-100) mg/dL Calcium 9.0 (8.4-10.2) mg/dL Total Bilirubin 0.30 (0.1-1.2) mg/dL AST 15 (5-40) units/L ALT 24 (7-56) units/L Alkaline Phosphatase 76 (35-129) units/L Total Protein 7.2 (6.3-8.2) g/dL Albumin 3.4 L (3.9-5) g/dL Assessment and Plan - Patient Problems (1) Chronic venous hypertension (idiopathic) with ulcer of bilateral lower extremity Current Visit: No Status: Chronic Plan to address problem: 1) Wound care nurse consult 2) Elevate RLE at all times 3) I will debride the RLE ulcerations tomorrow.
--- NOTE | 2020-05-05 14:48 | Progress Note ---
Assessment and Plan Assessment and Plan Advance Directives: Yes (Full code) VTE prophylaxis?: Chemical Plan of care discussed with patient/family: Yes - Patient Problems (1) Bilateral lower leg cellulitis Current Visit: Yes Status: Acute Plan to address problem: IV Unasyn and vancomycin for now Surgery consult requested (2) Chronic venous hypertension (idiopathic) with ulcer of bilateral lower extremity Current Visit: No Status: Chronic Plan to address problem: Vascular surgery consult requested (3) PVD (peripheral vascular disease) Current Visit: No Status: Chronic (4) HTN (hypertension) Current Visit: No Status: Chronic Qualifiers: Hypertension type: essential hypertension Qualified Code(s): I10 - Essential (primary) hypertension (5) Peripheral neuropathy Current Visit: Yes Status: Chronic Plan to address problem: Continue gabapentin (6) DVT prophylaxis Current Visit: No Status: Acute Plan to address problem: On heparin and GI prophylaxis Subjective Date of service: 05/05/20 Principal diagnosis: Bilateral lower extremity cellulitis Interval history: Patient admitted for bilateral lower extremity cellulitis and bilateral ulcers Objective - Constitutional Vitals: Vital Signs - 12hr 05/05/20 08:24 Temperature 98.1 F Pulse Rate 75 Respiratory 18 Rate Blood Pressure 137/91 O2 Sat by Pulse 97 Oximetry General appearance: Present: no acute distress, well-nourished - EENT Eyes: PERRL, EOM intact ENT: hearing intact, clear oral mucosa Ears: bilateral: normal - Neck Neck: supple, normal ROM - Respiratory Respiratory effort: normal Respiratory: bilateral: CTA - Breasts Breasts: normal - Cardiovascular Heart rate: 78 Rhythm: regular Heart Sounds: Present: S1 & S2. Absent: gallop, rub Extremities: pulses intact, No edema, normal color, Full ROM, abnormal Extremity abnormal: other (Bilateral lower extremity ulcers bilateral lower extremities redness and ulcers) - Gastrointestinal General gastrointestinal: Present: soft, non-tender, non-distended, normal bowel sounds - Genitourinary Male genitourinary: normal - Integumentary Integumentary: clear, warm, dry - Musculoskeletal Musculoskeletal: 1, strength equal bilaterally - Neurologic Neurologic: moves all extremities - Psychiatric Psychiatric: memory intact, appropriate mood/affect, intact judgment & insight - Labs CBC & Chem 7: 05/04/20 13:40 05/06/20 04:58 Labs: Abnormal lab results 05/05/20 Range/Units 09:37 INR 1.14 H (0.87-1.13)
[2020-05-05] MEDS: HYDROmorphone 1 MG/1 ML INJ IV PRN ×3 (15:26→21:16)
[2020-05-05] MEDS ORDERED: WARFARIN 7.5 MG TAB PO SCH (17:00)
[2020-05-06] MEDS: AMPICILLIN/SULBACTA 3GM/100ML 3 GM/100 ML BAG IV SCH ×3 (01:13→11:24)
[2020-05-06] MEDS: HYDROmorphone 1 MG/1 ML INJ IV PRN ×4 (01:13→11:24)
[2020-05-06] MEDS: VANCOMYCIN 2,000 MG in SODIUM CHLORIDE 0.9% 500 ML 500 ML IV SCH ×2 (01:21→12:28)
[2020-05-06 05:38] LABS: INR 1.16 (0.87-1.13)
[2020-05-06 05:44] LABS: BUN/Creatinine Ratio 9; Blood Urea Nitrogen 11 mg/dL (9-20); Calcium 8.6 mg/dL (8.4-10.2); Hemolysis Index 7
[2020-05-06] MEDS: GABAPENTIN 300 MG CAP PO SCH ×2 (08:20→14:30)
[2020-05-06] MEDS: PANTOPRAZOLE 40 MG TAB PO SCH (08:20)
[2020-05-06] MEDS: FUROSEMIDE 40 MG TAB PO SCH (09:03)
[2020-05-06] MEDS: METOPROLOL TARTRATE 100 MG TAB PO SCH (09:03)
[2020-05-06] MEDS: POTASSIUM CHLORIDE ER 20 MEQ TAB PO SCH (09:03)
[2020-05-06] MEDS: AMIODARONE 200 MG TAB PO SCH (09:03)
[2020-05-06] MEDS: LISINOPRIL 20 MG TAB PO SCH (09:03)
[2020-05-06] MEDS ORDERED: LIDOCAINE (4%) 40 MG/ML TOPICAL SOLN 50 ML BOTTLE TP ONE (09:16)
--- NOTE | 2020-05-06 09:21 | Progress Note ---
Assessment and Plan Assessment and plan: Bilateral lower leg cellulitis IV Unasyn and vancomycin for now Surgery for debridement today Chronic venous hypertension (idiopathic) with ulcer of bilateral lower extremity Vascular surgery consult requested PVD (peripheral vascular disease) HTN (hypertension) Continue home antihypertensive medication Peripheral neuropathy Continue gabapentin DVT prophylaxis On heparin and GI prophylaxis History Interval history: No new issues overnight. Hospitalist Physical - Constitutional Vitals: Temp Pulse Resp BP Pulse Ox 97.9 F 85 20 163/94 96 05/06/20 08:21 05/06/20 08:21 05/06/20 08:21 05/06/20 08:21 05/06/20 08:21 General appearance: Present: no acute distress, well-nourished - EENT Eyes: Present: PERRL, EOM intact ENT: hearing intact, clear oral mucosa, dentition normal - Neck Neck: Present: supple, normal ROM - Respiratory Respiratory effort: normal Respiratory: bilateral: CTA - Cardiovascular Rhythm: regular Heart Sounds: Present: S1 & S2. Absent: gallop, rub - Extremities Extremities: no ischemia, No edema, Full ROM - Abdominal General gastrointestinal: soft, non-tender, non-distended, normal bowel sounds - Integumentary Integumentary: Present: clear, warm, dry - Neurologic Neurologic: CNII-XII intact, moves all extremities Results - Labs CBC & Chem 7: 05/04/20 13:40 05/06/20 04:58 Labs: Laboratory Last Values WBC 8.7 K/mm3 (4.5-11.0) 05/04/20 13:40 RBC 3.37 M/mm3 (3.65-5.03) L 05/04/20 13:40 Hgb 9.3 gm/dl (11.8-15.2) L 05/04/20 13:40 Hct 29.1 % (35.5-45.6) L 05/04/20 13:40 MCV 87 fl (84-94) 05/04/20 13:40 MCH 28 pg (28-32) 05/04/20 13:40 MCHC 32 % (32-34) 05/04/20 13:40 RDW 16.0 % (13.2-15.2) H 05/04/20 13:40 Plt Count 423 K/mm3 (140-440) 05/04/20 13:40 Lymph % (Auto) 15.8 % (13.4-35.0) 05/04/20 13:40 [place] % (Auto) 8.3 % (0.0-7.3) H 05/04/20 13:40 Eos % (Auto) 2.2 % (0.0-4.3) 05/04/20 13:40 Baso % (Auto) 1.3 % (0.0-1.8) 05/04/20 13:40 Lymph # (Auto) 1.4 K/mm3 (1.2-5.4) 05/04/20 13:40 [place] # (Auto) 0.7 K/mm3 (0.0-0.8) 05/04/20 13:40 Eos # (Auto) 0.2 K/mm3 (0.0-0.4) 05/04/20 13:40 Baso # (Auto) 0.1 K/mm3 (0.0-0.1) 05/04/20 13:40 Seg Neutrophils % 72.4 % (40.0-70.0) H 05/04/20 13:40 Seg Neutrophils # 6.3 K/mm3 (1.8-7.7) 05/04/20 13:40 PT 15.1 Sec. (12.2-14.9) H 05/06/20 04:58 INR 1.16 (0.87-1.13) H 05/06/20 04:58 Sodium 139 mmol/L (137-145) 05/06/20 04:58 Potassium 4.6 mmol/L (3.6-5.0) 05/06/20 04:58 Chloride 101.5 mmol/L (98-107) 05/06/20 04:58 Carbon Dioxide 32 mmol/L (22-30) H 05/06/20 04:58 Anion Gap 10 mmol/L 05/06/20 04:58 BUN 11 mg/dL (9-20) 05/06/20 04:58 Creatinine 1.2 mg/dL (0.8-1.3) 05/06/20 04:58 Estimated GFR > 60 ml/min 05/06/20 04:58 BUN/Creatinine Ratio 9 % 05/06/20 04:58 Glucose 149 mg/dL (75-100) H 05/06/20 04:58 Calcium 8.6 mg/dL (8.4-10.2) 05/06/20 04:58 Total Bilirubin 0.30 mg/dL (0.1-1.2) 05/04/20 13:40 AST 15 units/L (5-40) 05/04/20 13:40 ALT 24 units/L (7-56) 05/04/20 13:40 Alkaline Phosphatase 76 units/L (35-129) 05/04/20 13:40 Total Protein 7.2 g/dL (6.3-8.2) 05/04/20 13:40 Albumin 3.4 g/dL (3.9-5) L 05/04/20 13:40 Albumin/Globulin Ratio 0.9 % 05/04/20 13:40 Microbiology: Microbiology 05/04/20 17:18 Peripheral/Venous Blood Culture - Preliminary NO GROWTH AFTER 24 HOURS 05/04/20 17:12 Peripheral/Venous Blood Culture - Preliminary NO GROWTH AFTER 24 HOURS [place]/IV: Voiding Method Urinal IV Catheter Type [Left Forearm INT / Saline Lock ] Active Medications - Current Medications Current Medications: Generic Name Dose Route Start Last Admin Trade Name Freq PRN Reason Stop Dose Admin Amiodarone HCl 200 mg 05/04/20 22:00 05/06/20 09:03 Cordarone PO 200 mg BID TALIA Administration Atorvastatin Calcium 40 mg 05/04/20 22:00 05/05/20 21:10 Lipitor PO 40 mg QHS TALIA Administration Furosemide 40 mg 05/04/20 22:00 05/06/20 09:03 Lasix PO 40 mg QDAY TALIA Administration Gabapentin 300 mg 05/05/20 08:00 05/06/20 08:20 Gabapentin PO 300 mg TID TALIA Administration Heparin Sodium (Porcine) 5,000 unit 05/06/20 10:00 05/06/20 09:04 Heparin SUB-Q 5,000 unit Q12HR TALIA Administration Hydromorphone HCl 1 mg 05/05/20 14:47 05/06/20 08:20 Dilaudid IV 1 mg Q3H PRN Administration Pain , Severe (7-10) Ampicillin Sodium/Sulbactam Sodium 3 gm in 100 mls @ 100 mls/hr 05/05/20 00:00 05/06/20 05:30 Unasyn/Ns 3 Gm/100 Ml IV 100 mls/hr Q6HR TALIA Administration Protocol Vancomycin HCl 2,000 mg/ 540 mls @ 250 mls/hr 05/05/20 00:00 05/06/20 01:21 Sodium Chloride IV 250 mls/hr Q12H TALIA Administration Ibuprofen 800 mg 05/04/20 21:38 05/05/20 21:11 Ibuprofen PO 800 mg BID PRN Administration Pain, Mild (1-3) Isosorbide Mononitrate 30 mg 05/04/20 22:00 05/06/20 09:03 Imdur PO 30 mg QDAY TALIA Administration Lidocaine HCl 2.5 ml 05/06/20 09:30 Xylocaine Topical 4% TP 05/06/20 15:00 ONCE TALIA Lisinopril 20 mg 05/04/20 22:00 05/06/20 09:03 Zestril PO 20 mg BID TALIA Administration Metoprolol Tartrate 100 mg 05/04/20 22:00 05/06/20 09:03 Metoprolol PO 100 mg BID TALIA Administration Pantoprazole Sodium 40 mg 05/05/20 07:30 05/06/20 08:20 Protonix PO 40 mg QDAC TALIA Administration Potassium Chloride 20 meq 05/05/20 10:00 05/06/20 09:03 K-Dur PO 20 meq QDAY TALIA Administration Warfarin Sodium 7.5 mg 05/05/20 17:00 05/05/20 18:30 Coumadin PO 7.5 mg DAILY@1700 TALIA Administration Protocol Nutrition/Malnutrition Assess - Dietary Evaluation Nutrition/Malnutrition Findings: Nutrition Notes Start: 05/05/20 11: 55 Freq: Status: Active Protocol: Document 05/05/20 11:55 EN (Rec: 05/05/20 12:12 EN [email or web address]) Co-Sign 05/05/20 11:55 LM Nutrition Notes Need for Assessment generated from: Education Initial or Follow up Assessment Current Diagnosis Coronary Artery Disease, Hypertension,Heart Failure Other Pertinent Diagnosis Wounds (ulcer right ankle) Current Diet Regular Diet Labs/Tests 05/04: Glu 222 Pertinent Medications Reviewed Height 6 ft 7 in Weight 158.757 kg [place] Body Weight (kg) 100.00 BMI 39.4 Intake Prior to Admission Excellent Weight Status Obese Subjective/Other Information RD screened for DNI (Coumadin beginning at 17:00 today). 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 Pt reports good appetite upon admission and that he at 50% of his breakfast because it was cold. Pt declines N/V/D and abd pain. RD provided education regarding Coumadin/Vitamin K and Heart Healthy diet. Pt verbalized understanding Burn Absent Trauma Absent GI Symptoms None Food Allergy No Current % PO Fair (50-74%) Minimum of two criteria No physical signs of malnutrition #2 Nutrition Diagnosis Inadequate oral intake Etiology Pt taste preference As Evidenced by Signs and Symptoms pt reported consuming 50% of breakfast due to the food being cold #1 Nutrition Diagnosis Food and nutrition-related knowledge deficit Etiology no previous diet education relating to Vitamin K or heart healthy diet As Evidenced by Signs and Symptoms pt verbalized questions and need for education Is patient on ventilator? No Is Patient Ambulatory and/or Out of Bed Yes [facility] [ 3297.710 NUTR.[id number]] Kcal/Kg value to use for calculation 17 Approximate Energy Requirements Using 2699 kcal/Kg Calculation Used for Recommendations Kcal/kg Additional Notes Protein: 0.8-1.0 g/kg AdBW 129 .37kg (103-129g) Fluid: 1 ml/kcal Nutrition Intervention Change Diet Order: Cardiac/Consistent CHO Diet Teaching Recipient Patient Learning Readiness Good Teaching Methods Discussion,Handout Response to Teaching Verbalize understanding Education Handouts Provided Coumadin/Vit K, Heart Healthy Hypertension Barriers to Learning No Barriers RD phone number provided Yes Patient aware of follow up options Yes Goal #1 Meet 75% of energy and protein needs Anticipated Discharge Needs: Cardiac/ Consistent CHO Diet Follow-Up By: 05/07/20 Additional Comments F/u for intakes and possible education questions
[2020-05-06] MEDS ORDERED: LIDOCAINE (4%) 40 MG/ML TOPICAL SOLN 50 ML BOTTLE TP SCH (09:30)
[2020-05-06] MEDS ORDERED: HEPARIN 5,000 UNIT/1 ML VIAL SUB-Q SCH (10:00)
--- NOTE | 2020-05-06 10:31 | Vascular Lab Report ---
DUPLEX DOPPLER LOWER EXTREMITY VEINS, BILATERAL INDICATION / CLINICAL INFORMATION: Venous ulcers. TECHNIQUE: Duplex doppler imaging was performed through the veins of both lower extremities using venous porsche baltazar and other maneuvers. COMPARISON: None available. FINDINGS: RIGHT COMMON FEMORAL VEIN: Negative. RIGHT FEMORAL VEIN: Negative. RIGHT POPLITEAL VEIN: Negative. RIGHT CALF VEINS: Negative. LEFT COMMON FEMORAL VEIN: Negative. LEFT FEMORAL VEIN: Negative. LEFT POPLITEAL VEIN: Negative. LEFT CALF VEINS: Negative. ADDITIONAL FINDINGS: None. IMPRESSION: 1. No sonographic evidence for DVT in either lower extremity. Signer Name: Pierre Hernandez MD Signed: 05/06/2020 10:27 AM Workstation Name: [employer]
--- NOTE | 2020-05-06 10:42 | Consultation ---
History of Present Illness - Reason for Consult Consult date: 05/06/20 Venous stasis ulcers - History of Present Illness Patient with a history of venous insufficiency dating back to at least 2011. At that point in time, the patient was noted to have hemosiderin staining. No interventions or consultations to vascular were done at that point. I the patient has progressed onto bilateral venous stasis ulcers on his ankles. Currently being treated with wound care as an outpatient. Past History Past Medical History: other (Venous insufficiency) Medications and Allergies Allergies Allergy/AdvReac Type Severity Reaction Status Date / Time No Known Allergies Allergy Unverified 10/18/17 01:33 Home Medications Medication Instructions Recorded Confirmed Last Taken Type Amiodarone [Cordarone 200 MG TAB] 200 mg PO BID 30 Days #60 tablet 04/27/20 05/05/20 Unknown Rx AtorvaSTATin [Lipitor] 40 mg PO QHS #30 tablet 04/27/20 05/05/20 Unknown Rx Furosemide [Lasix TAB] 40 mg PO QDAY #30 tablet 04/27/20 05/05/20 Unknown Rx Furosemide [Lasix TAB] 40 mg PO QDAY 30 Days #30 04/27/20 05/05/20 Unknown Rx Gabapentin 300 mg PO TID #90 04/27/20 05/05/20 Unknown Rx ISOSORBIDE MONOnitrate [Imdur ER] 30 mg PO QDAY #30 tablet 04/27/20 05/05/20 Unknown Rx Ibuprofen [Motrin 800 MG tab] 800 mg PO BID PRN #60 04/27/20 05/05/20 Unknown Rx Metoprolol [Lopressor TAB] 100 mg PO BID #60 tablet 04/27/20 05/05/20 Unknown Rx Pantoprazole [Protonix TAB] 40 mg PO QDAC #30 tablet 04/27/20 05/05/20 Unknown Rx Potassium Chloride [K-Dur] 20 meq PO QDAY #30 tablet 04/27/20 05/05/20 Unknown Rx Warfarin [Coumadin] 7.5 mg PO DAILY@1700 30 Days #30 04/27/20 05/05/20 Unknown Rx tablet lisinopriL [Zestril TAB] 20 mg PO BID #60 tablet 04/27/20 05/05/20 Unknown Rx Active Meds: Active Medications Amiodarone HCl (Cordarone) 200 mg PO BID TALIA Last Admin: 05/06/20 09:03 Dose: 200 mg Documented by: Atorvastatin Calcium (Lipitor) 40 mg PO QHS [facility] Last Admin: 05/05/20 21:10 Dose: 40 mg Documented by: Furosemide (Lasix) 40 mg PO QDAY [facility] Last Admin: 05/06/20 09:03 Dose: 40 mg Documented by: Gabapentin (Gabapentin) 300 mg PO TID [facility] Last Admin: 05/06/20 08:20 Dose: 300 mg Documented by: Heparin Sodium (Porcine) (Heparin) 5,000 unit SUB-Q Q12HR [facility] Last Admin: 05/06/20 09:04 Dose: 5,000 unit Documented by: Hydromorphone HCl (Dilaudid) 1 mg IV Q3H PRN PRN Reason: Pain , Severe (7-10) Last Admin: 05/06/20 08:20 Dose: 1 mg Documented by: Ampicillin Sodium/Sulbactam Sodium (Unasyn/Ns 3 Gm/100 Ml) 3 gm in 100 mls @ 100 mls/hr IV Q6HR [facility]; Protocol Last Admin: 05/06/20 05:30 Dose: 100 mls/hr Documented by: Vancomycin HCl 2,000 mg/ (Sodium Chloride) 540 mls @ 250 mls/hr IV Q12H [facility] Last Admin: 05/06/20 01:21 Dose: 250 mls/hr Documented by: Ibuprofen (Ibuprofen) 800 mg PO BID PRN PRN Reason: Pain, Mild (1-3) Last Admin: 05/05/20 21:11 Dose: 800 mg Documented by: Isosorbide Mononitrate (Imdur) 30 mg PO QDAY [facility] Last Admin: 05/06/20 09:03 Dose: 30 mg Documented by: Lidocaine HCl (Xylocaine Topical 4%) 2.5 ml TP ONCE [facility] Stop: 05/06/20 15:00 Lisinopril (Zestril) 20 mg PO BID [facility] Last Admin: 05/06/20 09:03 Dose: 20 mg Documented by: Metoprolol Tartrate (Metoprolol) 100 mg PO BID [facility] Last Admin: 05/06/20 09:03 Dose: 100 mg Documented by: Pantoprazole Sodium (Protonix) 40 mg PO QDAC [facility] Last Admin: 05/06/20 08:20 Dose: 40 mg Documented by: Potassium Chloride (K-Dur) 20 meq PO QDAY [facility] Last Admin: 05/06/20 09:03 Dose: 20 meq Documented by: Warfarin Sodium (Coumadin) 7.5 mg PO DAILY@1700 TALIA; Protocol Last Admin: 05/05/20 18:30 Dose: 7.5 mg Documented by: Review of Systems All systems: negative Exam - Constitutional Vitals: Temp Pulse Resp BP Pulse Ox 97.9 F 85 20 163/94 96 05/06/20 08:21 05/06/20 08:21 05/06/20 08:21 05/06/20 08:21 05/06/20 08:21 General appearance: Present: no acute distress - EENT Eyes: Present: EOM intact ENT: hearing intact - Neck Neck: Present: supple, normal ROM - Respiratory Respiratory effort: normal - Extremities Extremities: abnormal (Patient with edema, lipodermatosclerosis, hemosiderin staining and active venous stasis ulcers) Extremity abnormal: edema - Abdominal General gastrointestinal: Present: deferred - Rectal Rectal Exam: deferred - Psychiatric Psychiatric: appropriate mood/affect, cooperative Results - Labs CBC & Chem 7: 05/04/20 13:40 05/06/20 04:58 Labs: Abnormal lab results 05/05/20 05/06/20 05/06/20 Range/Units 09:37 04:58 04:58 PT 15.1 H (12.2-14.9) Sec. INR 1.14 H 1.16 H (0.87-1.13) Carbon Dioxide 32 H (22-30) mmol/L Glucose 149 H (75-100) mg/dL Assessment and Plan Patient is scheduled to undergo debridement of his venous stasis ulcers. Following that, the patient may be discharged. His venous insufficiency work-up will need to proceed with a venous ultrasound with reflux which is not done at this hospital and will be done on an outpatient basis. Ultimately, the patient will likely require treatment of his superficial venous disease and possible perforators. We will arrange to see him in clinic 2 weeks following his dis charge.
[2020-05-06 12:51] VITALS: BP 144/105
--- NOTE | 2020-05-06 13:36 | Procedure Note ---
Date of procedure: 05/06/20 Pre-op diagnosis: Right medial and lateral leg venous stasis ulcerations Post-op diagnosis: same Procedure: Debridement of right medial and lateral leg venous stasis ulcers Description of procedure: Pt was supine on his bed. His right leg was positioned so as to best expose the medial/lateral leg wounds. Operative field was prepped and draped for the right lateral leg ulcer. Necrotic skin, SQ tissue and biofilm were surgically, excisionally debrided with a disposeable 3 mm curette. Bleeding was minimal and was controlled with pressure. Right medial leg ulcer was debrided in an identical fashion. Pt tolerated both procedures well. Wounds were then dressed by the Wound Care nurse. Post-debridement measurements: 1) Right lateral leg ulcer: 14 X 9.5 X 0.5 cm 2) Right medial leg ulcer: 3 X 5 X 0.3 cm Anesthesia: other (4% topical Lidocaine) Surgeon: ОЛЕГ MUNSON Estimated blood loss: minimal Pathology: none Specimen disposition: discarded Condition: stable Disposition: no change
[2020-05-06] MEDS: IBUPROFEN 800 MG TAB PO PRN (14:38)
--- NOTE | 2020-05-07 12:40 | Discharge Summary ---
Providers - Providers Date of Admission: 05/06/20 11:12 Date of discharge: 05/07/20 Attending physician: JAYDE WILD 05/04/20 17:26 Consult to Physician [CONS] Stat Comment: Consulting Provider: ОЛЕГ GRANT Physician Instructions: Reason For Exam: Right leg wound 05/04/20 21:42 Consult to Wound/ET Nurse [CONS] Routine Reason For Exam: wound eval 05/06/20 07:27 Consult to Physician [CONS] Routine Comment: Consulting Provider: TAYE GARCIA Physician Instructions: Reason For Exam: Venous insufficiency Primary care physician: TRAVEL COUNSELOR Hospitalization Condition: Stable Hospital course: Patient is 64 years old morbidly obese male with history of coronary artery disease, congestive heart failure and chronic bilateral lower extremities ulceration who was admitted for diagnosis of bilateral lower leg cellulitis secondary to chronic venous ulcer disease. The patient was seen by vascular surgery and general surgery who recommended debridement of venous stasis ulcers which was completed by Dr. Grant. Vascular surgery reported that His venous insufficiency work-up will need to proceed with a venous ultrasound with reflux which is not done at this hospital and will be done on an outpatient basis. Ultimately, the patient will likely require treatment of his superficial venous disease and possible perforators. Patient was to continue with IV antibiotics and to be discharged but patient left AMA before completion of antibiotics. Dedicated discharge time 32 minutes Disposition: [id number] LEFT AGAINST MED ADVICE Time spent for discharge: 32 - Discharge Diagnoses (1) Bilateral lower leg cellulitis Status: Acute (2) Infected wound Status: Acute (3) Atrial flutter Status: Chronic Qualifiers: Atrial flutter type: typical Qualified Code(s): I48.3 - Typical atrial flutter (4) Chronic venous hypertension (idiopathic) with ulcer of bilateral lower extremity Status: Chronic (5) History of atrial fibrillation Status: Chronic (6) Obesity Status: Chronic (7) PVD (peripheral vascular disease) Status: Chronic Core Measure Documentation - Palliative Care Palliative Care/ Comfort Measures: Not Applicable - Core Measures Any of the following diagnoses?: none Exam - Constitutional Vitals: Temp Pulse Resp BP Pulse Ox 98.7 F 83 18 144/105 96 05/06/20 12:08 05/06/20 12:08 05/06/20 12:08 05/06/20 12:08 05/06/20 12:08 General appearance: Present: no acute distress, well-nourished - EENT Eyes: Present: PERRL ENT: hearing intact, clear oral mucosa - Neck Neck: Present: supple, normal ROM - Respiratory Respiratory effort: normal Respiratory: bilateral: CTA - Cardiovascular Heart Sounds: Present: S1 & S2. Absent: rub, click - Extremities Extremities: pulses symmetrical, No edema Peripheral Pulses: within normal limits - Abdominal General gastrointestinal: Present: soft, non-tender, non-distended, normal bowel sounds Male genitourinary: Present: normal - Integumentary Integumentary: Present: clear, warm, dry - Musculoskeletal Musculoskeletal: gait normal, strength equal bilaterally - Psychiatric Psychiatric: appropriate mood/affect, intact judgment & insight - Neurologic Neurologic: CNII-XII intact, moves all extremities Plan Follow up with: PRIMARY CARE, [Primary Care Provider] - 3-5 Days Forms: AMA Form, Warfarin Discharge Instruction
== END 2020-05-06 15:48 | disposition left against medical advice (07) | DRG 264 ==
LOC: ED 10:01 → 3A 17:52 → 4A 23:07 → OBSVTOIN 05-06 11:12
PROVIDERS: ADMIT Internal Medicine; ATTEND Hospitalist
PROC: 0JBN0ZZ Excision of Right Lower Leg Subcutaneous Tissue and Fascia, Open Approach (ICD-10-PCS; principal; 2020-05-06)
PROC: 0JBN0ZZ Excision of Right Lower Leg Subcutaneous Tissue and Fascia, Open Approach (ICD-10-PCS; 2020-05-06)
DX: I87.333 Chronic venous hypertension (idiopathic) with ulcer and inflammation of bilateral lower extremity (principal); Z68.41 Body mass index [BMI] 40.0-44.9, adult; L03.116 Cellulitis of left lower limb; L03.115 Cellulitis of right lower limb; I48.3 Typical atrial flutter; L97.828 Non-pressure chronic ulcer of other part of left lower leg with other specified severity; L97.818 Non-pressure chronic ulcer of other part of right lower leg with other specified severity; I48.91 Unspecified atrial fibrillation; E66.01 Morbid (severe) obesity due to excess calories; G62.89 Other specified polyneuropathies; I25.10 Atherosclerotic heart disease of native coronary artery without angina pectoris; I50.9 Heart failure, unspecified; Z79.01 Long term (current) use of anticoagulants; Z79.899 Other long term (current) drug therapy; I25.2 Old myocardial infarction
CPT/HCPCS: 36415; 80048; 80053; 80202; 85025; 85610; 87040; 87076; 87116; 87186; 93970; 96365; 96375; 96376; G0378; A9270-GY; J0295; J1170; J1644; J2270; J2405; J3370; J7040